=== PATIENT | female | born 1990 | race Caucasian/White ===

== ENCOUNTER 2016-03-25 21:04 | Emergency (ER) | payer OTHER ==
[~2016-03-25] VITALS: Ht 162.6 cm; Wt 43.0 kg
[~2016-03-25 21:04] MED LIST: BUPR8MIS SL; DIPH1TAB PO; NORGTAB50 PO; VNTHFA/IN TOP
[2016-03-25 21:09] VITALS: TEMP 36.6; Ht 162.6 cm; Wt 43.0 kg
[2016-03-25] MEDS ORDERED: SODIUM CHLORIDE 0.9% 500ML 500 ML IV STA (22:31)
[2016-03-25] MEDS ORDERED: RABIES IMMUNE GLOBULIN (HUMAN) 150 INTER.UNIT/ML 2 ML VIAL IM. ONE (22:45)
[2016-03-25] MEDS ORDERED: DIPHTHERIA/TETANUS/PERTUSSIS 0.5 ML SYR/VIAL IM. ONE (22:45)
[2016-03-25 23:01] LABS: HEMATOCRIT 41.6 % (37-47); MEAN CELL VOLUME 93.5 fL (80-100); MEAN CORPUSCULAR HEMOGLOBIN 34.4 pg (25-34); MEAN CORPUSCULAR HGB CONC 36.8 g/dl (32-36); PLATELET COUNT 213 K/uL (130-400); RED BLOOD COUNT 4.45 M/uL (4.2-5.4); WHITE BLOOD COUNT 5.63 K/uL (4.8-10.8)
[2016-03-25 23:18] LABS: ALT/SGPT 21 U/L (12-78); BLOOD UREA NITROGEN 7 mg/dl (7-18); BUN/CREATININE RATIO 9.4 (10-20); CALCIUM 8.9 mg/dl (8.5-10.1); CARBON DIOXIDE 28 mmol/L (21-32); CHLORIDE 105 mmol/L (98-107); CREATININE 0.77 mg/dl (0.60-1.20); GLUCOSE 78 mg/dl (70-99); SODIUM 140 mmol/L (136-145)
[2016-03-25 23:27] LABS: ALKALINE PHOSPHATASE 64 U/L (45-117); AST/SGOT 18 U/L (15-37); THYROID STIMULATING HORMONE 0.736 uIu/ml (0.300-4.500)
[2016-03-25 23:44] LABS: PREG INTERNAL NEGATIVE QC NEG CLEAR BACKGROUND; PREG INTERNAL POSITIVE QC POS CONTROL LINE
[2016-03-26 00:02] LABS: BASO % 0.5 %; BASO ABS # 0.03 K/uL (0-0.2); COMPLETE YES; EOS % 2.8 %; IG% 0.2 %; LYMPH % 50.3 %; LYMPH ABS # 2.83 K/uL (1.2-3.4); MONO % 5.2 %
[2016-03-26] MEDS ORDERED: DOXY100C2 PO (00:05)
[2016-03-26] MEDS ORDERED: METR-162 PO (00:05)
--- NOTE | 2016-03-26 00:34 | EMERGENCY ROOM VISIT NOTE ---
History First contact with patient: 23:55 Chief Complaint: OTHER COMPLAINT Stated Complaint: EXCESSIVE SWEATING,SORE LYMPH NODES,HARD TIME SWAL History of Present Illness The patient is a 25 year old female who presents to the Emergency Room with complaints of sore throat, swollen lymph nodes, fatigue, occasional discolored urine who was bitten yesterday by her ferret who has been around bats. Patient states she's had discoloration to her urine for a month now. She does smoke. Patient denies chest pain, dyspnea, fever, chills, cough, congestion, abdominal pain, vomiting, diarrhea, headache, neck stiffness. Patient states she is concerned she might have rabies. Patient also was to make sure there is nothing wrong with her urine. Review of Systems See HPI for pertinent positives & negatives. A total of 10 systems reviewed and were otherwise negative. Past Medical/Surgical History Medical Problems: (1) Drug Abuse Nec-Unspec (2) Kidney infection (3) Pneumonia (4) (5) Tobacco Use Disorder Family History FHx: cancer FHx: gallbladder disease FHx: heart disease Hypertension Kidney disease Kidney stones Seizures Social History Smoking Status: Current Every Day Smoker Alcohol Use: none Drug Use: none Marital Status: single Housing Status: lives with family Occupation Status: unemployed Current/Historical Medications Scheduled Buprenorphine Hcl-Naloxone Hcl (Suboxone 8-2 Mg), 1 DOSE SL BID Diphenhydramine Hcl (Benadryl Allergy), 25 MG PO PRN UD Doxycycline Hyclate (Vibramycin), 100 MG PO BID Metronidazole (Flagyl), 1 TAB PO TID Allergies Coded Allergies: Amoxicillin (Unverified Allergy, Unknown, UNKNOWN, 03/25/16) Physical Exam Vital Signs Date Time Temp Pulse Resp B/P Pulse Ox O2 Delivery O2 Flow Rate FiO2 03/25/16 21:09 36.6 104 18 121/73 97 Room Air Physical Exam VITALS: Vitals are noted on the nurse's note and reviewed by myself. Vital signs stable. GENERAL: Pleasant anxious-appearing female with tobacco odor, in no acute distress, nondiaphoretic, well-developed well-nourished. SKIN: Small scratch andre to left hands in between the thumb and second finger with no palpable abscess or cellulitis The rest of the skin was without rashes, erythema, edema, or bruising. There is no tenting of the skin. Capillary reflex less than 2 seconds. HEAD: Normocephalic atraumatic. EARS: External auditory canals clear, tympanic membranes pearly jones without erythema or effusion bilaterally. EYES: Pupils equal round and reactive to light and accommodation. Conjunctivae without injection, sclerae without icterus. Extraocular movements intact. NOSE: Patent, turbinates without inflammation or discharge. No sinus tenderness. MOUTH: Mucous membranes moist. Tonsils are not enlarged. Pharynx without erythema or exudate. Uvula midline. Airway patent. Tongue does not deviate. NECK: Supple without nuchal rigidity. No lymphadenopathy. No thyromegaly. Cervical spine is nontender. No JVD. HEART: Regular rate and rhythm without murmurs gallops or rubs. LUNGS: Clear to auscultation bilaterally without wheezes, rales or rhonchi. No dullness to percussion. No retractions or accessory muscle use. ABDOMEN: Positive bowel sounds x 4. Normal tympanic percussion. Soft, nontender, without masses or organomegaly. Lewis sign negative. No guarding or rebound tenderness. MUSCULOSKELETAL: No muscle atrophy, erythema, or edema noted. NEURO: Patient was alert and oriented to person place and time. Normal sensation to light and sharp touch. No focal neurological deficits. Medical Decision & Procedures Laboratory Results 03/25/16 22:51 Red Blood Count 4.45, Mean Corpuscular Volume 93.5, Mean Corpuscular Hemoglobin 34.4, Mean Corpuscular Hemoglobin Concent 36.8, Mean Platelet Volume 9.0, Neutrophils (%) (Auto) 41.0, Lymphocytes (%) (Auto) 50.3, Monocytes (%) (Auto) 5.2, Eosinophils (%) (Auto) 2.8, Basophils (%) (Auto) 0.5, Neutrophils # (Auto) 2.31, Lymphocytes # (Auto) 2.83, Monocytes # (Auto) 0.29, Eosinophils # (Auto) 0.16, Basophils # (Auto) 0.03 03/25/16 22:51 Test 03/25/16 22:51 03/25/16 23:55 White Blood Count 5.63 K/uL (4.8-10.8) Red Blood Count 4.45 M/uL (4.2-5.4) Hemoglobin 15.3 g/dL (12.0-16.0) Hematocrit 41.6 % (37-47) Mean Corpuscular Volume 93.5 fL (80-100) Mean Corpuscular Hemoglobin 34.4 pg (25-34) Mean Corpuscular Hemoglobin Concent 36.8 g/dl (32-36) Platelet Count 213 K/uL (130-400) Mean Platelet Volume 9.0 fL (7.4-10.4) Neutrophils (%) (Auto) 41.0 % Lymphocytes (%) (Auto) 50.3 % Monocytes (%) (Auto) 5.2 % Eosinophils (%) (Auto) 2.8 % Basophils (%) (Auto) 0.5 % Neutrophils # (Auto) 2.31 K/uL (1.4-6.5) Lymphocytes # (Auto) 2.83 K/uL (1.2-3.4) Monocytes # (Auto) 0.29 K/uL (0.11-0.59) Eosinophils # (Auto) 0.16 K/uL (0-0.5) Basophils # (Auto) 0.03 K/uL (0-0.2) RDW Standard Deviation 44.0 fL (36.4-46.3) RDW Coefficient of Variation 12.8 % (11.5-14.5) Immature Granulocyte % (Auto) 0.2 % Immature Granulocyte # (Auto) 0.01 K/uL (0.00-0.02) Anion Gap 7.0 mmol/L (3-11) Est Creatinine Clear Calc Drug Dose 76.5 ml/min Estimated GFR () 125.3 Estimated GFR (Non- 108.1 BUN/Creatinine Ratio 9.4 (10-20) Calcium Level 8.9 mg/dl (8.5-10.1) Total Bilirubin 0.4 mg/dl (0.2-1) Direct Bilirubin < 0.1 mg/dl (0-0.2) Aspartate Amino Transf (AST/SGOT) 18 U/L (15-37) Alanine Aminotransferase (ALT/SGPT) 21 U/L (12-78) Alkaline Phosphatase 64 U/L (45-117) Total Creatine Kinase 72 U/L (26-192) Total Protein 7.5 gm/dl (6.4-8.2) Albumin 4.1 gm/dl (3.4-5.0) Thyroid Stimulating Hormone (TSH) 0.736 uIu/ml (0.300-4.500) Human Chorionic Gonadotropin, Qual NEG (NEG) Monoscreen NEG (NEG) Medications Administered Medications (Trade) Dose Ordered Sig/Audrey Route Start Time Stop Time Status Last Admin Dose Admin Sodium Chloride (Nss 500ml) 500 ml @ 999 mls/hr Q31M STAT IV 03/25/16 22:31 03/25/16 23:01 DC 03/25/16 22:31 999 MLS/HR Diphtheria/ Pertussis/Tetanus Vacc (Adacel Inj) 0.5 ml ONCE ONCE IM. 03/25/16 22:45 03/25/16 22:46 DC 03/25/16 22:45 0.5 ML Rabies Immune Globulin (Imogam Rabies Inj) 860 interunit ONCE ONCE IM. 03/25/16 22:45 03/25/16 22:46 DC 03/25/16 22:45 860 INTERUNIT ED Course Prior records/ancillary studies reviewed and summarized above. Nursing notes reviewed. The patient's history was concerning for animal bite, sore throat and fatigue. Differential diagnosis: Etiologies such as metabolic, rabies, infection, hypo/hyperglycemia, electrolyte abnormalities, cardiac sources, intracerebral event, toxicologic, neurologic, as well as others were entertained. Physical examination: As above. ER treatment provided: IV Lock NSS, rabies prophylaxis On reassessment the patient felt better. Diagnostics interpretation by me: The labs revealed no worrisome leukocytosis or left slight abnormality. Negative strep test sent for culture. Exam and history seem consistent with sore throat most likely viral in etiology with ferret bite to left hand. No obvious signs of infection over the bite area. Patient was started on rabies prophylaxis as her was a possible concern for rabies. She is advised follow-up family medicine in a few days or here in the ER sooner for fevers, spreading infection, headaches, confusion, worsening signs or symptoms or as needed. Patient was neurovascularly and neurologically intact. No other acute findings are noted. She ambulated out of the ER without difficulties. Case reviewed with my attending. By the evaluation outlined above emergent etiologies such as electrolyte abnormalities, cardiac sources, intracerebral event, toxologic, neurologic, abnormalities blood glucose , metabolic, as well as others were deemed relatively unlikely. The pt informed about the findings as listed above. All questions were answered and pleased with the treatment. Return instructions were outlined and the patient was discharged in stable condition. Outpatient prescription management: ben peterson Referral: The patient was referred back to primary care physician for follow-up in 2 to 3 days for a recheck of the current condition. Medical Decision As above Impression Primary Impression: Pharyngitis Additional Impressions: Animal bite of hand Need for prophylactic vaccination against rabies Departure Information Dispostion Home / Self-Care Condition GOOD Prescriptions Metronidazole (FLAGYL) 500 Mg Tab 1 TAB PO TID for 10 Days, #30 TAB Prov: Roselia Brown .SEBLE 03/26/16 Doxycycline Hyclate (VIBRAMYCIN) 100 Mg Cap 100 MG PO BID for 10 Days, #20 CAP Prov: Roselia Brown PA-C 03/26/16 Forms WORK / SCHOOL INSTRUCTIONS, HOME CARE DOCUMENTATION FORM, IMPORTANT VISIT INFORMATION Patient Instructions Sore Throat - [facility], [facility], Rabies Immune Globulin Human Solution for injection Additional Instructions Return on days 3,7 and 14 for your rabies series. Flagyl 500mg: Take one tablet 3 times a day for 10 days. All antibiotics can cause diarrhea. If this occurs and you feel worse or it does not resolve in 1- 2 days follow up with your doctor or return to the Emergency Department as this could be signs of serious underlying problems. Any medication can cause an allergic reaction, stop the pills immediately and return to the ER for rash, hives, breathing difficulties, or swelling. Doxycycline 100mg: Take one pill twice daily for 10 days for your infection. Take with food, but avoid dairy. Avoid prolonged sun exposure since this medication makes you temporarily more susceptible to sunburns. All antibiotics can cause diarrhea. If this occurs and you feel worse or it does not resolve in 1-2 days follow up with your doctor or return to the Emergency Department as this could be signs of serious underlying problems. Any medication can cause an allergic reaction, stop the pills immediately and return to the ER for rash, hives, breathing difficulties, or swelling. Acetaminophen(Tylenol) may be used for fever or pain. Use 500mg every six hours as needed. Avoid using more than 2000mg in a 24 hour period. AND/OR Ibuprofen(Motrin, Advil) may be used for fever or pain. Use 400mg every six hours as needed. Take with food. Avoid using more than 1600mg in a 24 hour period. Do not use 1600mg per day for more than three consecutive days without physician direction. Prolonged inappropriate use can lead to stomach upset or ulcers. Controlling your fever with Tylenol and Ibuprofen as above will make you feel better. Rest and drink plenty of fluids. Avoid strenuous activity until your symptoms resolve and your breathing returns to normal. Continue current medications. Return to the ER for chest pain, difficulty breathing, persistent fevers, vomiting, worsening of your condition, or as needed. Follow-up with family care in 2-3 days. Problem Qualifiers Primary Impression: Pharyngitis Pharyngitis/tonsillitis etiology: unspecified etiology Qualified Codes: J02.9 - Acute pharyngitis, unspecified Additional Impressions: Animal bite of hand Encounter type: initial encounter Laterality: left Qualified Codes: S61.452A - Open bite of left hand, initial encounter
[2016-03-26 00:49] VITALS: BP 116/83; PULSE 96; O2SAT 99
[2016-03-26 00:49] LABS: URINE APPEARANCE CLEAR (CLEAR); URINE BILIRUBIN NEG (NEG); URINE COLOR YELLOW; URINE EPITHELIAL CELL AUTO >30 /lpf (0-5); URINE NITRITE NEG (NEG); URINE PH 5.5 (4.5-7.5); URINE SPECIFIC GRAVITY 1.004 (1.000-1.030); UROBILINOGEN NEG (NEG); ZZUR CULT IF INDIC CLEAN CATCH NO
[2016-03-26 00:55] LABS: MANUAL MICROSCOPIC REQUIRED? NO; REVIEW REQ? NO
== END 2016-03-26 00:49 | disposition home or self-care (01) ==
LOC: C.EDB 21:06 → C.EDC 03-26 00:49
DX: J02.9 Acute pharyngitis, unspecified (principal); S61.452A Open bite of left hand, initial encounter; Z20.3 Contact with and (suspected) exposure to rabies; Z23 Encounter for immunization; R53.83 Other fatigue; R82.90 Unspecified abnormal findings in urine; Z79.899 Other long term (current) drug therapy; Z88.1 Allergy status to other antibiotic agents; F17.200 Nicotine dependence, unspecified, uncomplicated; Z82.0 Family history of epilepsy and other diseases of the nervous system; Z82.49 Family history of ischemic heart disease and other diseases of the circulatory system; Z83.79 Family history of other diseases of the digestive system; Z84.1 Family history of disorders of kidney and ureter; W53.81XA Bitten by other rodent, initial encounter

== ENCOUNTER 2016-03-28 21:36 | Emergency (ER) | payer OTHER ==
[~2016-03-28] VITALS: Ht 162.6 cm; Wt 41.8 kg
[~2016-03-28 21:36] MED LIST changes: +DOXY100C2 PO; +METR-162 PO; -NORGTAB50 PO; -VNTHFA/IN TOP
[2016-03-28 21:39] VITALS: TEMP 36.3; Ht 162.6 cm; Wt 41.8 kg
--- NOTE | 2016-03-28 22:08 | EMERGENCY ROOM VISIT NOTE ---
ED Visit Note First contact with patient: 21:43 I have seen and examined this patient with Calvin Burrows and generally agree with the treatment plan as discussed. Problem List Medical Problems: (1) Kidney infection Status: Chronic (2) Status: Chronic Current/Historical Medications Scheduled Buprenorphine Hcl-Naloxone Hcl (Suboxone 8-2 Mg), 1 DOSE SL BID Diphenhydramine Hcl (Benadryl Allergy), 25 MG PO PRN UD Doxycycline Hyclate (Vibramycin), 100 MG PO BID Metronidazole (Flagyl), 1 TAB PO TID Allergies Coded Allergies: Amoxicillin (Unverified Allergy, Unknown, UNKNOWN, 03/25/16) Vital Signs Date Time Temp Pulse Resp B/P Pulse Ox O2 Delivery O2 Flow Rate FiO2 03/28/16 21:39 36.3 88 16 113/73 99 Room Air Departure Information Referrals No Doctor, Assigned (PCP) Patient Instructions My [facility]
--- NOTE | 2016-03-28 22:26 | EMERGENCY ROOM VISIT NOTE ---
ED Visit Note First contact with patient: 21:43 Chief Complaint: Rabies Return Visit History of Present Illness: This patient is a 25-year-old female who presents to the Emergency Department this evening for their 2nd Rabies Vaccination Injections. The patient reports that they had no reaction to previous injection. Patient denies the development of any fevers, chills, sweats, or URI symptoms. Medications: Unchanged from previous visit. Allergies: Amoxicillin PMH: Unchanged from previous visit. SHx: Patient is a 25-year-old female who lives locally. ROS: All pertinent positive and negative review of systems are appropriately documented in the History of Present Illness. Physical Exam: VITAL SIGNS - Vital signs and Nursing Notes were reviewed. GENERAL -25-year-old female, well-developed, well-nourished, and in no acute distress. SKIN - Without rashes or lesions. CARDIAC - RRR with normal S1 & S2. No murmurs, rubs, or gallops appreciated. RESPIRATORY - Clear to auscultation bilaterally. No wheezes, rales, or rhonchi appreciated. NEURO - Patient is A&Ox3 and communicates appropriately with the provider. ED Course: Previous ED visit note was reviewed by myself prior to patient evaluation. Patient had not received Imovax during her initial vaccination series. She had only received immunoglobulin. I discussed this with the pharmacist. It was felt best that the patient complete the entire course including days 0, 3, 7, and 14. This information was relayed to the patient. Patient reports no reaction to the previous injection(s). Patient received 2.5 international units of Imovax intramuscularly. Patient was observed in the Emergency Department for greater than 20 minutes prior to discharge without signs of reaction. Patient was educated on worrisome symptoms for return visit to the Emergency Department. Patient discharged to home with the intent for follow-up in the Emergency Department as scheduled for the remainder of their injections. Impression: Rabies Prophylaxis Discharge Instructions: You were seen in the Emergency Department today for your Rabies Prophylaxis Injection. You need to return on days 3 (03/31), 7 (04/04), and 14 (04/11) for completion of the rabies prophylaxis series. For pain or fever control, you can use the following [id number] medicines (if >12 yo): - Regular strength (325mg/tab) Tylenol (acetaminophen) 2 tabs every 4-6 hours as needed. Do not exceed 12 tablets in a 24 hour period. Avoid taking more than 4 grams (4000 mg) of Tylenol per day. This includes any other sources of acetaminophen you may take on a regular basis. - Regular strength (200 mg/tab) Advil (ibuprofen) 1-2 tabs every 4-6 hours as needed. Do not exceed a dose of 3200 mg per day. Return to the emergency department if your symptoms worsen despite treatment course outlined above. Problem List Medical Problems: (1) Kidney infection Status: Chronic (2) Status: Chronic Current/Historical Medications Scheduled Buprenorphine Hcl-Naloxone Hcl (Suboxone 8-2 Mg), 1 DOSE SL BID Diphenhydramine Hcl (Benadryl Allergy), 25 MG PO PRN UD Doxycycline Hyclate (Vibramycin), 100 MG PO BID Metronidazole (Flagyl), 1 TAB PO TID Allergies Coded Allergies: Amoxicillin (Unverified Allergy, Unknown, UNKNOWN, 03/28/16) Vital Signs Date Time Temp Pulse Resp B/P Pulse Ox O2 Delivery O2 Flow Rate FiO2 03/28/16 22:35 94 20 100/78 95 03/28/16 21:39 36.3 88 16 113/73 99 Room Air Laboratory Results Test 03/28/16 22:12 Urine Test NEG (NEG) Medications Administered Medications (Trade) Dose Ordered Sig/Audrey Route Start Time Stop Time Status Last Admin Dose Admin Rabies Vaccine Human Diploid Cell (Imovax Rabies) 2.5 interunit ONCE ONCE IM. 03/28/16 22:30 03/28/16 22:31 DC 03/28/16 22:30 2.5 INTERUNIT Departure Information Impression Primary Impression: Rabies, need for prophylactic vaccination against Dispostion Home / Self-Care Condition GOOD Referrals No Doctor, Assigned (PCP) Patient Instructions My [facility], Rabies Immune Globulin Human Solution for injection Additional Instructions You were seen in the Emergency Department today for your Rabies Prophylaxis Injection. You need to return on days 3 (03/31), 7 (04/04), and 14 (04/11) for completion of the rabies prophylaxis series. For pain or fever control, you can use the following [id number] medicines (if >12 yo): - Regular strength (325mg/tab) Tylenol (acetaminophen) 2 tabs every 4-6 hours as needed. Do not exceed 12 tablets in a 24 hour period. Avoid taking more than 4 grams (4000 mg) of Tylenol per day. This includes any other sources of acetaminophen you may take on a regular basis. - Regular strength (200 mg/tab) Advil (ibuprofen) 1-2 tabs every 4-6 hours as needed. Do not exceed a dose of 3200 mg per day. Return to the emergency department if your symptoms worsen despite treatment course outlined above.
[2016-03-28] MEDS ORDERED: RABIES VACCINE (IMOVAX) HUMAN DIPL CELL 2.5 INTER.UNIT/ML SYR IM. ONE (22:30)
[2016-03-28 22:35] VITALS: BP 100/78; PULSE 94; O2SAT 95
== END 2016-03-28 22:37 | disposition home or self-care (01) ==
LOC: C.EDB 21:37 → C.EDD 22:37
DX: Z23 Encounter for immunization (principal); Z87.442 Personal history of urinary calculi; Z88.1 Allergy status to other antibiotic agents

== ENCOUNTER 2016-04-03 17:35 | Emergency (ER) | payer OTHER ==
[~2016-04-03] VITALS: Ht 162.6 cm; Wt 43.2 kg
[2016-04-03 17:39] VITALS: TEMP 36.8; Ht 162.6 cm; Wt 43.2 kg
[2016-04-03] MEDS ORDERED: FEXO1TAB49 PO (20:07)
[2016-04-03] MEDS ORDERED: RABIES VACCINE (IMOVAX) HUMAN DIPL CELL 2.5 INTER.UNIT/ML SYR IM. ONE (20:30)
--- NOTE | 2016-04-03 20:37 | EMERGENCY ROOM VISIT NOTE ---
History Report prepared by Jamar: Amy Colunga Under the Supervision of: Dr. Cari Jean M.D. First contact with patient: 20:03 Chief Complaint: NAUSEA Stated Complaint: FEELING SICK, NAUSEA, PAIN IN RT RIB, HEADACHE Nursing Triage Summary: Pt reports nausea, headache, green discharge from anus sx started 2 weeks ago Pt is also supposed to get her third rabies vaccine today History of Present Illness The patient is a 25 year old female who presents to the Emergency Room with complaints of constant illness symptoms for the past few weeks. The patient notes that she has been experiencing nausea and a headache. She also for the past several months experiencing green discharge from her anus. She is unsure if it could be and STD, however she has only been sexually active with the same partner for over two years now. Patient also states a possibility that she could be . The patient is due for her 3rd rabies vaccine. Her LNMP was March 19. She does not she has an ovarian cyst. 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 Review of Systems See HPI for pertinent positives & negatives. A total of 10 systems reviewed and were otherwise negative. Past Medical & Surgical Medical Problems: (1) Drug Abuse Nec-Unspec (2) Kidney infection (3) Pneumonia (4) (5) Tobacco Use Disorder Family History FHx: cancer FHx: gallbladder disease FHx: heart disease Hypertension Kidney disease Kidney stones Seizures Social History Smoking Status: Never Smoker Alcohol Use: none Drug Use: none Marital Status: in relationship Housing Status: lives with family Occupation Status: unemployed Current/Historical Medications Scheduled Buprenorphine Hcl-Naloxone Hcl (Suboxone 8-2 Mg), 1 DOSE SL BID Doxycycline Hyclate (Vibramycin), 100 MG PO BID Fexofenadine Hcl ([place] Allergy), 1 TAB PO DAILY Metronidazole (Flagyl), 1 TAB PO TID Allergies Coded Allergies: Amoxicillin (Unverified Allergy, Unknown, UNKNOWN, 04/03/16) Physical Exam Vital Signs Date Time Temp Pulse Resp B/P Pulse Ox O2 Delivery O2 Flow Rate FiO2 04/03/16 21:46 107 18 117/86 99 04/03/16 20:41 93 18 118/87 94 Room Air 04/03/16 17:39 36.8 121 16 108/73 97 Room Air Physical Exam Vital signs reviewed. General: Well-appearing female, thin and somewhat disheveled, in no significant distress. HEENT: No scleral icterus, PERRLA, neck supple. Atraumatic. Cardiovascular: Regular rate and rhythm, no extra sounds. Pulmonary: Clear to auscultation bilaterally, normal work of breathing. Abdomen: Soft, nontender, nondistended, positive bowel sounds. Pelvic: Normal external female genitals. No lesion or discharge. No rectal discharge or rectal lesions. Musculoskeletal: Atraumatic, no peripheral edema. Neurologic: Patient awake alert and oriented x 3 Skin: Warm, dry, no rash Medical Decision & Procedures Laboratory Results Test 04/03/16 20:57 04/03/16 21:30 Urine Test NEG (NEG) Laboratory results per my review. Medications Administered Medications (Trade) Dose Ordered Sig/Audrey Route Start Time Stop Time Status Last Admin Dose Admin Rabies Vaccine Human Diploid Cell (Imovax Rabies) 2.5 interunit ONCE ONCE IM. 04/03/16 20:30 04/03/16 20:32 DC 04/03/16 20:47 2.5 INTERUNIT ED Course 2024: Past medical records reviewed. The patient was evaluated in room C2. A complete history and physical examination was performed. 2030: Imovax rabies 2.5 interunit IM. 2144: Upon reevaluation, the patient appeared to have improvement of her symptoms. I discussed findings with her. She verbalized agreement of the treatment plan. She was discharged home. Medical Decision The patient is a 25 year old female who presents to the ED with complaints of illness. Differentials include STD, perirectal abscess, colitis, , viral illness, gastritis. This patient was evaluated and appeared to be in no significant distress. A pelvic exam was performed and reveals no significant discharge or lesions. Rectal examination reveals no significant discharge or lesion. Swabs were obtained and sent for STD testing. Patient was given her rabies immunization. Patient will follow-up with her primary care physician for reevaluation and return to the ER for worsening of symptoms or any medical concerns. Impression Primary Impression: Rabies, need for prophylactic vaccination against Additional Impression: Rectal discharge Scribe Attestation The scribe's documentation has been prepared under my direction and personally reviewed by me in its entirety. I confirm that the note above accurately reflects all work, treatment, procedures, and medical decision making performed by me. Departure Information Dispostion Home / Self-Care Referrals No Doctor, Assigned (PCP) Forms HOME CARE DOCUMENTATION FORM, IMPORTANT VISIT INFORMATION Patient Instructions My [facility] Additional Instructions Diagnosis: Rectal discharge, need for rabies immunization. Please follow-up with your RESIDENT ENGINEER for reevaluation. The cultures are pending and you will be contacted if there is a need for antibiotics. Return for your last rabies immunization on 04/11/16 as previously directed. Return to the ER for worsening of symptoms or any medical concerns. Problem Qualifiers
[2016-04-03 21:46] VITALS: BP 117/86; PULSE 107; O2SAT 99
[2016-04-08 00:15] LABS: CHLAMYDIA TRACH RNA*** NOT DETECTED (NOT DETECTED); GC (NEIS GONORRHOEAE)RNA** NOT DETECTED (NOT DETECTED)
== END 2016-04-03 21:46 | disposition home or self-care (01) ==
LOC: C.EDB 17:37 → C.EDC 21:46
DX: Z29.14 Encounter for prophylactic rabies immune globulin (principal); Z20.3 Contact with and (suspected) exposure to rabies; R19.8 Other specified symptoms and signs involving the digestive system and abdomen; R51 Headache; R11.0 Nausea; Z79.899 Other long term (current) drug therapy; Z82.49 Family history of ischemic heart disease and other diseases of the circulatory system; Z84.1 Family history of disorders of kidney and ureter

== ENCOUNTER 2016-09-23 18:18 | Emergency (ER) | payer OTHER ==
[~2016-09-23] VITALS: Ht 162.6 cm; Wt 41.5 kg
[~2016-09-23 18:18] MED LIST changes: -DIPH1TAB PO; +FEXO1TAB49 PO; -METR-162 PO
[2016-09-23 18:33] VITALS: TEMP 36.7; Ht 162.6 cm; Wt 41.5 kg
[2016-09-23] MEDS ORDERED: SODIUM CHLORIDE 0.9% 1000ML 1,000 ML IV STA (19:00)
[2016-09-23 19:28] LABS: BASO % 0.7 %; BASO ABS # 0.05 K/uL (0-0.2); COMPLETE YES; EOS % 5.1 %; HEMATOCRIT 45.1 % (37-47); IG% 0.3 %; LYMPH % 48.5 %; MEAN CELL VOLUME 94.7 fL (80-100); MEAN CORPUSCULAR HGB CONC 34.8 g/dl (32-36); MEAN PLATELET VOLUME 9.4 fL (7.4-10.4); MONO % 7.1 %; NEUT % 38.3 %; PLATELET COUNT 265 K/uL (130-400); RED BLOOD COUNT 4.76 M/uL (4.2-5.4); WHITE BLOOD COUNT 7.22 K/uL (4.8-10.8)
[2016-09-23] MEDS ORDERED: BUPR100T8 PO (19:36)
[2016-09-23 19:42] LABS: URINE APPEARANCE CLEAR (CLEAR); URINE BILIRUBIN NEG (NEG); URINE COLOR YELLOW; URINE NITRITE NEG (NEG); URINE SPECIFIC GRAVITY 1.007 (1.000-1.030); UROBILINOGEN NEG (NEG)
[2016-09-23 19:47] LABS: MANUAL MICROSCOPIC REQUIRED? NO; REVIEW REQ? NO
[2016-09-23 19:54] LABS: ALT/SGPT 16 U/L (12-78); BLOOD UREA NITROGEN 7 mg/dl (7-18); BUN/CREATININE RATIO 9.7 (10-20); CALCIUM 8.9 mg/dl (8.5-10.1); CARBON DIOXIDE 27 mmol/L (21-32); CHLORIDE 105 mmol/L (98-107); CREATININE 0.69 mg/dl (0.60-1.20); GLUCOSE 71 mg/dl (70-99); POTASSIUM 3.7 mmol/L (3.5-5.1); SODIUM 138 mmol/L (136-145)
[2016-09-23 20:04] LABS: ALKALINE PHOSPHATASE 65 U/L (45-117); AST/SGOT 13 U/L (15-37)
[2016-09-23 20:28] LABS: LYME DISEASE AB IGG NEG (NEG); LYME DISEASE AB IGM NEG (NEG)
[2016-09-23 21:03] VITALS: BP 118/68; PULSE 89; O2SAT 99
--- NOTE | 2016-09-24 00:31 | EMERGENCY ROOM VISIT NOTE ---
History Report prepared by Jamar: Hank Watson Under the Supervision of: Dr. Zuhair Ortiz M.D. First contact with patient: 18:48 Chief Complaint: HEADACHE Stated Complaint: JOINT MUSCLE PAIN, HEADACHE History of Present Illness The patient is a 25 year old female who presents to the Emergency Room with complaints of a worsening headache that began a couple of months ago. She rates her pain a 6/10 in severity. Over the past couple of days, she states that her symptoms have worsened and that she feels "off." Over the past two years, she has also had neck pain, body aches, and joint pain. She states her shoulders her fingers and her knees are hurting her. She denies any swelling or redness. Currently, the patient is mildly nauseated, congested due to allergies, and states that her ears feel full. She denies any fever, vomiting, chills or rash. She does not currently have a PCP. She states that she has been experiencing symptoms since she birthed her first child on Feb 09, 2014 and is taking anxiety medications for it. She states she gets her anxiety meds from Dr. Lucia at the urgent care center. She notes that she had a tick bite in April 2016, but was not treated. Source of History: patient Onset: a couple of months ago Position: head Symptom Intensity: 6/10 Quality: ache Timing: worsening Associated Symptoms: + neck pain, + nausea, No fevers, No vomiting, No rash Note: She is having joint pain and body aches. Review of Systems See HPI for pertinent positives & negatives. A total of 10 systems reviewed and were otherwise negative. Past Medical & Surgical Medical Problems: (1) Drug Abuse Nec-Unspec (2) Kidney infection (3) Pneumonia (4) (5) Tobacco Use Disorder Family History FHx: cancer FHx: gallbladder disease FHx: heart disease Hypertension Kidney disease Kidney stones Seizures Social History Smoking Status: Current Every Day Smoker Alcohol Use: none Drug Use: none Marital Status: in relationship Housing Status: lives with family Occupation Status: unemployed Current/Historical Medications Scheduled Buprenorphine Hcl-Naloxone Hcl (Suboxone 8-2 Mg), 1 DOSE SL BID Bupropion (Wellbutrin Sr), 100 MG PO BID Allergies Coded Allergies: Amoxicillin (Unverified Allergy, Unknown, UNKNOWN, 04/03/16) Uncoded Allergies: TOMATOES (Allergy, Mild, HIVES, 09/23/16) Physical Exam Vital Signs Date Time Temp Pulse Resp B/P (MAP) Pulse Ox O2 Delivery O2 Flow Rate FiO2 09/23/16 21:03 89 20 118/68 99 09/23/16 20:33 89 20 118/68 99 Room Air 09/23/16 18:33 36.7 90 16 126/74 95 Room Air Physical Exam Constitutional: Vital signs reviewed. Eyes: Pupils are equal round reactive to light. Conjunctiva are noninjected. ENT: Pharynx is clear without erythema or exudate. Mucous membranes are moist. Neck supple without meningeal signs. Respiratory: Clear to auscultation bilaterally. Breath sounds are equal bilaterally. Cardiovascular: Regular rate and rhythm. No rubs or gallops. GI: Soft, nondistended and nontender. Bowel sounds are present. Musculoskeletal: No peripheral edema. No CVA tenderness. No joint swelling. Integumentary: No cyanosis. Neurological: The patient is awake and alert. Cranial nerves II-XII are intact. Motor is 5 out of 5 all extremities. Sensation is intact to light touch all extremities. Normal speech. Negative Kernig and Brudzinski's signs. Psychiatric: Slightly anxious appearing. Medical Decision & Procedures Laboratory Results 09/23/16 19:10 Red Blood Count 4.76, Mean Corpuscular Volume 94.7, Mean Corpuscular Hemoglobin 33.0, Mean Corpuscular Hemoglobin Concent 34.8, Mean Platelet Volume 9.4, Neutrophils (%) (Auto) 38.3, Lymphocytes (%) (Auto) 48.5, Monocytes (%) (Auto) 7.1, Eosinophils (%) (Auto) 5.1, Basophils (%) (Auto) 0.7, Neutrophils # (Auto) 2.77, Lymphocytes # (Auto) 3.50, Monocytes # (Auto) 0.51, Eosinophils # (Auto) 0.37, Basophils # (Auto) 0.05 09/23/16 19:10 Test 09/23/16 19:10 White Blood Count 7.22 K/uL (4.8-10.8) Red Blood Count 4.76 M/uL (4.2-5.4) Hemoglobin 15.7 g/dL (12.0-16.0) Hematocrit 45.1 % (37-47) Mean Corpuscular Volume 94.7 fL (80-100) Mean Corpuscular Hemoglobin 33.0 pg (25-34) Mean Corpuscular Hemoglobin Concent 34.8 g/dl (32-36) Platelet Count 265 K/uL (130-400) Mean Platelet Volume 9.4 fL (7.4-10.4) Neutrophils (%) (Auto) 38.3 % Lymphocytes (%) (Auto) 48.5 % Monocytes (%) (Auto) 7.1 % Eosinophils (%) (Auto) 5.1 % Basophils (%) (Auto) 0.7 % Neutrophils # (Auto) 2.77 K/uL (1.4-6.5) Lymphocytes # (Auto) 3.50 K/uL (1.2-3.4) Monocytes # (Auto) 0.51 K/uL (0.11-0.59) Eosinophils # (Auto) 0.37 K/uL (0-0.5) Basophils # (Auto) 0.05 K/uL (0-0.2) RDW Standard Deviation 44.8 fL (36.4-46.3) RDW Coefficient of Variation 12.9 % (11.5-14.5) Immature Granulocyte % (Auto) 0.3 % Immature Granulocyte # (Auto) 0.02 K/uL (0.00-0.02) Urine Color YELLOW Urine Appearance CLEAR (CLEAR) Urine pH 8.0 (4.5-7.5) Urine Specific Foster 1.007 (1.000-1.030) Urine Protein NEG (NEG) Urine Glucose (UA) NEG (NEG) Urine Ketones NEG (NEG) Urine Occult Blood NEG (NEG) Urine Nitrite NEG (NEG) Urine Bilirubin NEG (NEG) Urine Urobilinogen NEG (NEG) Urine Leukocyte Esterase NEG (NEG) Urine Test NEG (NEG) Anion Gap 6.0 mmol/L (3-11) Est Creatinine Clear Calc Drug Dose 82.4 ml/min Estimated GFR () 141.2 Estimated GFR (Non- 121.8 BUN/Creatinine Ratio 9.7 (10-20) Calcium Level 8.9 mg/dl (8.5-10.1) Total Bilirubin 0.3 mg/dl (0.2-1) Direct Bilirubin < 0.1 mg/dl (0-0.2) Aspartate Amino Transf (AST/SGOT) 13 U/L (15-37) Alanine Aminotransferase (ALT/SGPT) 16 U/L (12-78) Alkaline Phosphatase 65 U/L (45-117) Total Protein 7.5 gm/dl (6.4-8.2) Albumin 4.0 gm/dl (3.4-5.0) Thyroid Stimulating Hormone (TSH) 1.320 uIu/ml (0.300-4.500) Free Thyroxine 1.17 ng/dl (0.80-1.60) Lyme Disease IgG Antibody NEG (NEG) Lyme Disease IgM Antibody NEG (NEG) Laboratory results as reviewed by me. Medications Administered Medications (Trade) Dose Ordered Sig/Audrey Route Start Time Stop Time Status Last Admin Dose Admin Sodium Chloride 1,000 ml @ 999 mls/hr Q1H1M STAT IV 09/23/16 19:00 09/23/16 20:00 DC 09/23/16 19:10 999 MLS/HR ED Course 1848: The patient was evaluated in room C3. A complete history and physical exam was performed. 1899: Ordered Sodium Chloride 1000 ml @ 999 mls/hr IV 2051: The patient is now requesting a CT of her head because of her headaches. I discussed the risks of radiation exposure with her, and she still wants it. 2100: Patient decided that she does not want the CT scan. She is going to talk to her doctor next week about further imaging of her head. 2112: Upon reevaluation, the patient appeared to have improvement of her symptoms. I discussed tonight's findings with her. She verbalized agreement of the treatment plan. She was discharged home. Medical Decision This is a 25-year-old female who presents with headache, joint pain, body aches and neck pain. Differential diagnosis includes rheumatoid arthritis, fibromyalgia, Lyme disease, migraine headache. I did perform a limited focused review of portions of the patient's old chart on the electronic medical record. The patient was here in March of this year for headache, nausea, rib pain, and anal discharge. She was evaluated and discharged to follow up with her PCP. I did evaluate the patient as noted above. The patient is presenting with several complaints including headache, diffuse body pain and joint pain. She also has neck pain but has no meningeal signs or fever. She states she has had neck pain for over a year. Her headache has been going on for several months and her body and joint pain has been over a year as well. IV access was established. I did treat the patient with normal saline IV. I did order and personally review the patient's urinalysis as described above. I did order and review the patient's blood work as noted in the electronic medical record. Her blood work is unremarkable. Lyme testing is negative. I did discuss the test results with the patient. She does have an appointment to see a new doctor next week. She did initially request to have a CT of her head because of her headaches. I did discuss risks of CT scanning with her and she wanted to proceed with the CAT scan but after I ordered that she decided to wait to talk to her doctor next week and decide upon imaging at that time. I did feel this was reasonable and so the patient was discharged. Medication Reconcilliation Current Medication List: was personally reviewed by me Blood Pressure Screening Patient's blood pressure: Normal blood pressure Blood pressure disposition: Did not require urgent referral Impression Primary Impression: Headache Additional Impressions: Arthralgia Myalgia Scribe Attestation The scribe's documentation has been prepared under my direct and personally reviewed by me in its entirety. I confirm that the note above accurately reflects all work, treatment, procedures, and medical decision making performed by me. Departure Information Dispostion Home / Self-Care Referrals No Doctor, Assigned (PCP) Forms HOME CARE DOCUMENTATION FORM, IMPORTANT VISIT INFORMATION Patient Instructions ED Joint Pain, Headache Pain, My [facility] Additional Instructions You have been examined and treated today on an emergency basis only. This is not a substitute for, or an effort to provide, complete comprehensive medical care. It is impossible to recognize and treat all injuries or illnesses in a single emergency department visit. It is therefore important that you follow up closely with your physician next week per your appointment. Return for worsening symptoms or if you develop fever, vomiting, rash, joint swelling or redness, or any other concerning symptoms. Problem Qualifiers Primary Impression: Headache Headache type: unspecified Headache chronicity pattern: chronic headache Intractability: not intractable Qualified Codes: R51 - Headache Additional Impressions: Arthralgia Joint pain location: unspecified Qualified Codes: M25.50 - Pain in unspecified joint
== END 2016-09-23 21:09 | disposition home or self-care (01) ==
LOC: C.EDB 18:19 → C.EDC 21:09
DX: R51 Headache (principal); M25.50 Pain in unspecified joint; M79.1 Myalgia; F17.200 Nicotine dependence, unspecified, uncomplicated; Z87.01 Personal history of pneumonia (recurrent); Z82.49 Family history of ischemic heart disease and other diseases of the circulatory system; Z84.1 Family history of disorders of kidney and ureter; Z82.0 Family history of epilepsy and other diseases of the nervous system

== ENCOUNTER 2016-12-04 16:11 | Inpatient (IN) | payer OTHER ==
[~2016-12-04] VITALS: Ht 160 cm; Wt 40.2 kg
[~2016-12-04 16:11] MED LIST changes: +BUPR100T8 PO; -DOXY100C2 PO; -FEXO1TAB49 PO
[2016-12-04] MEDS ORDERED: DIPH-437 PO (16:44)
[2016-12-04 16:52] LABS: URINE APPEARANCE CLEAR (CLEAR); URINE BILIRUBIN NEG (NEG); URINE COLOR YELLOW; URINE NITRITE NEG (NEG); URINE PH 6.5 (4.5-7.5); URINE SPECIFIC GRAVITY 1.011 (1.000-1.030); UROBILINOGEN NEG (NEG)
[2016-12-04 16:53] LABS: MANUAL MICROSCOPIC REQUIRED? NO; REVIEW REQ? NO
[2016-12-04 17:37] LABS: BASO % 0.5 %; BASO ABS # 0.03 K/uL (0-0.2); COMPLETE YES; EOS % 1.2 %; HEMATOCRIT 42.9 % (37-47); IG% 0.2 %; LYMPH % 39.5 %; LYMPH ABS # 2.62 K/uL (1.2-3.4); MEAN CELL VOLUME 93.7 fL (80-100); MEAN CORPUSCULAR HEMOGLOBIN 34.9 pg (25-34); MEAN CORPUSCULAR HGB CONC 37.3 g/dl (32-36); MEAN PLATELET VOLUME 9.4 fL (7.4-10.4); MONO % 4.8 %; NEUT % 53.8 %; PLATELET COUNT 264 K/uL (130-400); RED BLOOD COUNT 4.58 M/uL (4.2-5.4); WHITE BLOOD COUNT 6.63 K/uL (4.8-10.8)
[2016-12-04] MEDS ORDERED: NICOTINE 14 MG/24 HR TDSY ONE (17:59)
[2016-12-04] MEDS ORDERED: NICOTINE POLACRILEX 2 MG GUM MT PRN (18:00)
[2016-12-04 18:21] LABS: ALT/SGPT 13 U/L (12-78); BLOOD UREA NITROGEN 5 mg/dl (7-18); BUN/CREATININE RATIO 7.8 (10-20); CALCIUM 8.8 mg/dl (8.5-10.1); CARBON DIOXIDE 29 mmol/L (21-32); CHLORIDE 104 mmol/L (98-107); CREATININE 0.64 mg/dl (0.60-1.20); GLUCOSE 101 mg/dl (70-99); POTASSIUM 2.8 mmol/L (3.5-5.1); SODIUM 140 mmol/L (136-145)
[2016-12-04 18:29] LABS: ACETAMINOPHEN < 2 ug/ml (10-30)
[2016-12-04 18:32] LABS: ALKALINE PHOSPHATASE 65 U/L (45-117); AST/SGOT 12 U/L (15-37); THYROID STIMULATING HORMONE 0.322 uIu/ml (0.300-4.500)
[2016-12-04] MEDS ORDERED: POTASSIUM CHLORIDE 10 MEQ TABCR PO STA ×2 (18:34→20:28)
[2016-12-04 19:37] LABS: BENZODIAZEPINE, URINE NEG (NEG); COCAINE,URINE NEG (NEG); PHENCYCLIDINE, URINE NEG (NEG)
[2016-12-04] MEDS ORDERED: ALUMINUM/MAGNESIUM SUSP 30 ML UDC PO PRN (21:00)
[2016-12-04] MEDS ORDERED: BISMUTH SUBSALICYLATE PER ML OMNICELL CHARGE PO PRN (21:00)
[2016-12-04] MEDS ORDERED: hydrOXYzine HCL 25 MG TAB PO PRN (21:00)
[2016-12-04] MEDS ORDERED: SODIUM CHLORIDE 0.65% NA SOLN 45 ML (OCEAN) PRN (21:00)
[2016-12-04 21:22] VITALS: O2SAT 98
--- NOTE | 2016-12-04 21:48 | EMERGENCY ROOM VISIT NOTE ---
History Report prepared by Jamar: Anastasiya Pittman Under the Supervision of: Twin SofiaO. First contact with patient: 16:25 Chief Complaint: MENTAL HEALTH EVALUATION Stated Complaint: MENTAL HEALTH EVAL History of Present Illness The patient is a 25 year old female who presents to the Emergency Room for a mental health evaluation. The patient took extra Tylenol PM last night with the intent to end her life. She states that she took 4 pills. She is unsure how many mg they were. She estimates that she took them around 10pm. The patient denies using any other drugs last night or today. She denies any alcohol use. Boyfriend states that they spoke with [facility] in the field and were advised to come to the ED for further evaluation. The patient has tried to kill herself multiple times in the past by overdosing. She admits to self-harm and cutting her arms. She has been inpatient at [facility] in the past. The patient has had lower abdominal pain and nausea for the past two weeks. She denies any other physical complaints. Pt denies headache, change in vision, fevers, chest pain, shortness of breath, vomiting, diarrhea, pain with urination, and melena. Her LNMP was a couple of days ago. Source of History: patient, spouse/significant other Onset: CONTRACT ADMINISTRATOR Position: other (mental health) Quality: other (overdose) Timing: other (episode) Associated Symptoms: + nausea, + abdominal pain, No fevers, No headache, No chest pain, No SOB, No vomiting, No melena, No diarrhea, No urinary symptoms Review of Systems See HPI for pertinent positives & negatives. A total of 10 systems reviewed and were otherwise negative. Past Medical & Surgical Medical Problems: (1) Drug Abuse Nec-Unspec (2) Kidney infection (3) Pneumonia (4) (5) Tobacco Use Disorder Family History FHx: cancer FHx: gallbladder disease FHx: heart disease Hypertension Kidney disease Kidney stones Seizures Social History Smoking Status: Current Every Day Smoker Alcohol Use: none Drug Use: none Marital Status: in relationship Housing Status: lives with family Occupation Status: unemployed Current/Historical Medications Scheduled Buprenorphine Hcl-Naloxone Hcl (Suboxone 8-2 Mg), 1 DOSE SL BID Scheduled PRN Acetaminophen/Diphenhydramine (Tylenol Pm), 1 TAB PO HS PRN for Sleep Allergies Coded Allergies: Amoxicillin (Unverified Allergy, Unknown, UNKNOWN, 12/04/16) Uncoded Allergies: TOMATOES (Allergy, Mild, HIVES, 09/23/16) Physical Exam Vital Signs Date Time Temp Pulse Resp B/P (MAP) Pulse Ox O2 Delivery O2 Flow Rate FiO2 12/04/16 18:05 72 18 126/83 99 Room Air 12/04/16 16:14 37.1 117 16 122/85 93 Room Air Physical Exam GENERAL: Sitting up in bed, alert, cachetic, malnourished, no distress, non- toxic EYE EXAM: normal conjunctiva. OROPHARYNX: no exudate, no erythema, lips, buccal mucosa, and tongue normal and mucous membranes are moist NECK: supple, no nuchal rigidity, no adenopathy, non-tender LUNGS: Clear to auscultation. Normal chest wall mechanics HEART: no murmurs, S1 normal and S2 normal ABDOMEN: abdomen soft, non-tender, normo-active bowel sounds, no masses, no rebound or guarding. BACK: Back is symmetrical on inspection and there is no deformity, no midline tenderness, no CVA tenderness. SKIN: no rashes and no bruising UPPER EXTREMITIES: upper extremities are grossly normal. 2nd and 3rd digits bilaterally with yellowish hue on distal digit. LOWER EXTREMITIES: No pitting edema. NEURO EXAM: Normal sensorium, cranial nerves II-XII grossly intact, normal speech, no gross weakness of arms, no gross weakness of legs. PSYCH: Admits to suicide attempt and Tylenol overdose. Medical Decision & Procedures Laboratory Results 12/04/16 17:25 Red Blood Count 4.58, Mean Corpuscular Volume 93.7, Mean Corpuscular Hemoglobin 34.9, Mean Corpuscular Hemoglobin Concent 37.3, Mean Platelet Volume 9.4, Neutrophils (%) (Auto) 53.8, Lymphocytes (%) (Auto) 39.5, Monocytes (%) (Auto) 4.8, Eosinophils (%) (Auto) 1.2, Basophils (%) (Auto) 0.5, Neutrophils # (Auto) 3.57, Lymphocytes # (Auto) 2.62, Monocytes # (Auto) 0.32, Eosinophils # (Auto) 0.08, Basophils # (Auto) 0.03 12/04/16 17:25 Test 12/04/16 16:20 12/04/16 17:25 12/04/16 17:26 Urine Color YELLOW Urine Appearance CLEAR (CLEAR) Urine pH 6.5 (4.5-7.5) Urine Specific Homer 1.011 (1.000-1.030) Urine Protein NEG (NEG) Urine Glucose (UA) NEG (NEG) Urine Ketones NEG (NEG) Urine Occult Blood NEG (NEG) Urine Nitrite NEG (NEG) Urine Bilirubin NEG (NEG) Urine Urobilinogen NEG (NEG) Urine Leukocyte Esterase NEG (NEG) Urine Test NEG (NEG) Urine Opiates Screen NEG (NEG) Urine Methadone, Qualitative NEG (NEG) Urine Barbiturates NEG (NEG) Urine Phencyclidine (PCP) Level NEG (NEG) Ur Amphetamine/Methamphetamine NEG (NEG) MDMA (Ecstasy) Screen NEG (NEG) Urine Benzodiazepines Screen NEG (NEG) Urine Cocaine Metabolite NEG (NEG) Urine Marijuana (THC) NEG (NEG) White Blood Count 6.63 K/uL (4.8-10.8) Red Blood Count 4.58 M/uL (4.2-5.4) Hemoglobin 16.0 g/dL (12.0-16.0) Hematocrit 42.9 % (37-47) Mean Corpuscular Volume 93.7 fL (80-100) Mean Corpuscular Hemoglobin 34.9 pg (25-34) Mean Corpuscular Hemoglobin Concent 37.3 g/dl (32-36) Platelet Count 264 K/uL (130-400) Mean Platelet Volume 9.4 fL (7.4-10.4) Neutrophils (%) (Auto) 53.8 % Lymphocytes (%) (Auto) 39.5 % Monocytes (%) (Auto) 4.8 % Eosinophils (%) (Auto) 1.2 % Basophils (%) (Auto) 0.5 % Neutrophils # (Auto) 3.57 K/uL (1.4-6.5) Lymphocytes # (Auto) 2.62 K/uL (1.2-3.4) Monocytes # (Auto) 0.32 K/uL (0.11-0.59) Eosinophils # (Auto) 0.08 K/uL (0-0.5) Basophils # (Auto) 0.03 K/uL (0-0.2) RDW Standard Deviation 42.7 fL (36.4-46.3) RDW Coefficient of Variation 12.5 % (11.5-14.5) Immature Granulocyte % (Auto) 0.2 % Immature Granulocyte # (Auto) 0.01 K/uL (0.00-0.02) Anion Gap 7.0 mmol/L (3-11) Est Creatinine Clear Calc Drug Dose 84.7 ml/min Estimated GFR () 144.8 Estimated GFR (Non- 124.9 BUN/Creatinine Ratio 7.8 (10-20) Bedside Glucose 111 mg/dl (70-90) Calcium Level 8.8 mg/dl (8.5-10.1) Total Bilirubin 0.3 mg/dl (0.2-1) Direct Bilirubin < 0.1 mg/dl (0-0.2) Aspartate Amino Transf (AST/SGOT) 12 U/L (15-37) Alanine Aminotransferase (ALT/SGPT) 13 U/L (12-78) Alkaline Phosphatase 65 U/L (45-117) Total Protein 7.5 gm/dl (6.4-8.2) Albumin 4.1 gm/dl (3.4-5.0) Thyroid Stimulating Hormone (TSH) 0.322 uIu/ml (0.300-4.500) Salicylates Level 5.8 mg/dl (2.8-20) Acetaminophen Level < 2 ug/ml (10-30) Ethyl Alcohol mg/dL < 3.0 mg/dl (0-3) Laboratory results per my review. Medications Administered Medications (Trade) Dose Ordered Sig/Audrey Route Start Time Stop Time Status Last Admin Dose Admin Nicotine Polacrilex (Nicorette 2MG Gum) 1 piece PRN PRN MN 12/04/16 18:00 12/04/16 21:56 DC 12/04/16 18:02 1 PIECE Nicotine (Nicoderm Cq 14MG Patch) 1 patch STK-MED ONCE .ROUTE 12/04/16 17:59 12/04/16 18:00 DC 12/04/16 18:01 1 PATCH Potassium Chloride (Klor-Con M10) 40 meq NOW STAT PO 12/04/16 18:34 12/04/16 18:35 DC 12/04/16 18:51 40 MEQ Potassium Chloride (Klor-Con M10) 40 meq NOW STAT PO 12/04/16 20:28 12/04/16 20:29 DC 12/04/16 20:28 40 MEQ ED Course ED COURSE: Vital signs were reviewed and showed tachycardic. The patients medical record was reviewed The above diagnostic studies were performed and reviewed. ED treatments and interventions as stated above. 1625: The patient was evaluated in room A7. A complete history and physical examination was performed. 1759: Nicotine 1 patch 1800: Nicorette gum 1 piece MT - PRN 4: Klor-Con M10 40 meq PO 2027: Klor-Con M10 40 meq PO 2046: The patient was accepted to [facility] for further management. Medical Decision Differential diagnosis: Etiologies such as mood disorder, infection, hypoglycemia, electrolyte abnormalities, cardiac sources, intracerebral event, toxicologic, neurologic, as well as others were entertained. Patient is a 25-year-old female that presents to ER for Tylenol overdose. She took 4 tabs of Tylenol last night. She admits to mild nausea which has been present for the past several months. CBC was unremarkable. BMP shows a potassium of 2.8. Potassium was repleted with 80 mEq. Bilirubin all LFTs was unremarkable. Tylenol was negative. Alcohol is negative. UA was negative. was negative. Patient was agreeable on a 201 to come in for admission for suicidal thoughts. Medication Reconcilliation Current Medication List: was personally reviewed by me Blood Pressure Screening Patient's blood pressure: Normal blood pressure Impression Primary Impression: Suicide attempt Additional Impression: Hypokalemia Scribe Attestation The scribe's documentation has been prepared under my direction and personally reviewed by me in its entirety. I confirm that the note above accurately reflects all work, treatment, procedures, and medical decision making performed by me. Departure Information Dispostion Mental Health Acute Care Referrals No Doctor, Assigned (PCP) Patient Instructions My [facility] Problem Qualifiers
[2016-12-04] MEDS ORDERED: BUPRENORPHINE/NALOXONE 8/2 MG TAB SL SCH (22:00)
[2016-12-04] MEDS ORDERED: NURSING VERBAL MED ORDER ONE (22:30)
[2016-12-04] MEDS ORDERED: RISPERIDONE 1 MG TAB PO PRN (22:45)
[2016-12-04] MEDS ORDERED: BUPRENORPHINE/NALOXONE 8/2 MG TAB SL STA (22:47)
[2016-12-04 22:56] VITALS: BP 104/68; TEMP 37.1; BMI 15.5
[2016-12-05 06:50] VITALS: BP_SYST 111; BP_SYST 121; BP_DIAS 73; BP_DIAS 86; PULSE 137; PULSE 156; PULSE 77; TEMP 36.8
[2016-12-05 06:53] VITALS: Ht 160 cm; Wt 40.2 kg
[2016-12-05] MEDS ORDERED: INFLUENZA VIRUS QUAD VACCINE 0.5 ML SYR IM. ONE (08:00)
[2016-12-05] MEDS ORDERED: INFLUENZA ADMINISTRATION CHARGE ONE (08:00)
[2016-12-05 08:38] LABS: POTASSIUM 4.3 mmol/L (3.5-5.1)
[2016-12-05 08:51] LABS: CHOLESTEROL/HDL RATIO 2.7
[2016-12-05] MEDS ORDERED: NICOTINE 14 MG/24 HR TDSY TD SCH (09:00)
[2016-12-05] MEDS ORDERED: BUPRENORPHINE/NALOXONE 8/2 MG TAB SL SCH ×2 (09:00→22:00)
[2016-12-05 11:37] VITALS: BP 106/67; PULSE 85; TEMP 36.7
[2016-12-05] MEDS ORDERED: BUPRENORPHINE/NALOXONE 8/2 MG TAB SL ONE (11:45)
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
[2016-12-05] MEDS ORDERED: BUPRENORPHINE HCL 2 MG SUBL SL ONE (13:30)
[2016-12-05] MEDS: NICOTINE 21 MG/24 HR TDSY TD SCH (19:27)
[2016-12-05] MEDS: RISPERIDONE ODT 0.5MG PO SCH (21:21)
[2016-12-05 22:21] VITALS: BP 100/71; PULSE 90
[2016-12-06 07:11] VITALS: BP_SYST 103; BP_SYST 93; BP_DIAS 60; BP_DIAS 67; PULSE 106; TEMP 36.6
[2016-12-06] MEDS ORDERED: BUPRENORPHINE/NALOXONE 8/2 MG TAB SL SCH (09:00)
[2016-12-06] MEDS: BUPRENORPHINE/NALOXONE 8/2 MG TAB SL SCH (12:04)
[2016-12-06] MEDS: NICOTINE 21 MG/24 HR TDSY TD SCH (12:06)
[2016-12-06 16:12] VITALS: BP 102/71; PULSE 105
--- NOTE | 2016-12-06 16:46 | Psychiatric Progress Notes ---
Progress Note Date of Service Dec 06, 2016. Interval History Patient remains withdrawn and isolative in her room. Chief Complaint "Noncommunicative". Subjective Patient was seen & assessed interval progress reviewed with Nursing. Patient has remained isolative in her room. She has not been attending groups. She refused to answer any of my questions today. Appeared guarded. Review of Systems Psych: denies symptoms other than stated above Constitutional: denied Cardiovascular: denied GI: denied Neurologic: denied Remainder of 10 body systems also reviewed and denied other than noted above. Sleep Information Total Hours of Sleep: 8.50 Meal Information Percent of Lunch Consumed: 30 Mental Status Exam During interview pt is: alert and oriented, guarded Appearance: appropriately groomed, appeared stated age Eye contact is: poor Motor behavior is: no abnormal motor movements Speech: normal in rate, rhythm & volume Affect: depressed, flat Mood is: depressed Thought process: blocking Thought content: paranoid Suicidal thought are: denied Homicidal thoughts are: denied Hallucinations: denies auditory, denies visual Cognition: memory grossly intact, attention grossly intact, language grossly intact Intelligence estimated to be: consistent with level of education Insight: limited Judgement: limited Impression 25 yo female with no prior history of cony or psychosis, hx of OD attempts, currently denies SI, possible confusion last pm was related to anticholinergic side effects of Benadryl. Family history is significant for schizophrenia so possibly first break psychosis over depression with psychotic features. She denies bulimia but K very low upon admission, normalized today following 2 doses of K dur in the ED. This am she is very flat, guarded with delay in response suggestive of thought disorganization/ongoing psychosis. Plan (1) Unspecified psychosis 12/05-The patient is admitted to [facility] ([facility] mental health unit) on q 15 min checks (behavioral with suicide precautions) for safety. The patient will participate in group, recreational and milieu therapies and will be offered additional individual and family sessions as clinically appropriate. Trial Risperdal M Tab 0.5mg qid PRN anxiety/agitation. -Risperdal M Tab 0.5mg qHS scheduled this hs. Patient agreeable following discussion of indication and need to monitor for metabolic side effects and TD, low dose given low BMI. -FLP & FBG drawn this AM all within nml limits. Triglycerides = 77; Total cholesterol = 104; LDL = 50; HDL = 39. FBG = 85. A private room remains medically necessary for the safety of self and others as presents this am as paranoid and behaviors have been somewhat unpredictable. Cogentin prn dystonia if needed patient has given variable reports of whether she was/was not admitted to [facility], will obtain records if available 12/06 -remains guarded and withdrawn. Due to paranoia and level of disorganization of thought process with remain in medically necessary private room and continue Risperdal M tab (2) Opiate dependence LYNNE completed for [facility] on admission, attempting to verify dosing and plan; unable to participate in brief intervention, in structured D&A program (3) Tachycardia 12/05 -EKG ordered to evaluate tachycardia--may have been related to anxiety due to psychosis or 1 mg dose of Risperdal night previously -VS ordered q shift to monitor for changes (4) Hypokalemia 12/05-potassium levels this AM = 4.3 -continue with usual I&O monitoring (5) Nicotine dependence 12/05--patient unable to participate in brief intervention at this time. nicotine patch Discharge / Aftercare Planning Primary Care Physician: Name: Ghazala lui [facility] Therapist: Name: Kayla @ [facility] Visit Code E&M Code: 09215 Inventory Assets Strengths: supportive boyfriend, motivation to see son Needs: lack of family support, child currently in foster care Risk Factors Assessment : Yes Health problems: No Mental Health Diagnoses: No Substance use disorders: Yes Previous attempt: Yes Smoker: Yes Protective Factors Assessment Employed: No Stable relationships: Yes Supportive family: No Data Vital Signs Last 24 Hrs: Date Time Temp Pulse Resp B/P (MAP) Pulse Ox O2 Delivery O2 Flow Rate FiO2 12/06/16 16:12 105 102/71 12/06/16 07:11 36.6 106 16 93/60 103/67 12/05/16 22:21 90 16 100/71 Meds Administered Last 24 Hrs: Meds Administered (Past 24Hrs) Medications (Trade) Dose Ordered Sig/Audrey Route Start Time Stop Time Status Last Admin Dose Admin Nicotine Polacrilex (Nicorette 2MG Gum) 1 piece PRN PRN MT 12/04/16 18:00 12/04/16 21:56 DC 12/04/16 18:02 1 PIECE Nicotine (Nicoderm Cq 14MG Patch) 1 patch STK-MED ONCE .ROUTE 12/04/16 17:59 12/04/16 18:00 DC 12/04/16 18:01 1 PATCH Potassium Chloride (Klor-Con M10) 40 meq NOW STAT PO 12/04/16 18:34 12/04/16 18:35 DC 12/04/16 18:51 40 MEQ Potassium Chloride (Klor-Con M10) 40 meq NOW STAT PO 12/04/16 20:28 12/04/16 20:29 DC 12/04/16 20:28 40 MEQ Risperidone (Risperdal Tab) 1 mg TID PRN PO 12/04/16 22:45 12/05/16 10:53 DC 12/04/16 22:50 1 MG Buprenorphine/ Naloxone (Suboxone Tab) 1 tab NOW STAT SL 12/04/16 22:47 12/04/16 22:48 DC 12/04/16 22:50 1 TAB Risperidone (Risperdal M Tab) 0.5 mg HS PO 12/05/16 22:00 01/04/17 21:59 12/05/16 21:21 0.5 MG Buprenorphine/ Naloxone (Suboxone Tab) 1 tab 1145 ONCE SL 12/05/16 11:45 12/05/16 11:46 DC 12/05/16 11:40 1 TAB Buprenorphine/ Naloxone (Suboxone Tab) 1.5 tab QAM SL 12/06/16 09:00 01/03/17 21:59 12/06/16 12:04 1.5 TAB Nicotine (Nicoderm Cq 21MG Patch) 1 patch QAM TD 12/06/16 09:00 01/05/17 08:59 12/06/16 12:06 1 PATCH Problem Qualifiers (1) Opiate dependence: Substance use status: uncomplicated Qualified Codes: F11.20 - Opioid dependence, uncomplicated
[2016-12-06] MEDS: RISPERIDONE ODT 0.5MG PO SCH (21:40)
[2016-12-07 06:59] VITALS: BP_SYST 108; BP_SYST 111; BP_DIAS 73; BP_DIAS 75; PULSE 102; PULSE 132; TEMP 36.6
[2016-12-07] MEDS: BUPRENORPHINE/NALOXONE 8/2 MG TAB SL SCH ×2 (09:00→09:07)
[2016-12-07] MEDS: NICOTINE 21 MG/24 HR TDSY TD SCH (09:09)
[2016-12-07 13:55] VITALS: BP 111/75; PULSE 98
[2016-12-07] MEDS: ACETAMINOPHEN 325 MG TAB PO PRN (15:15)
--- NOTE | 2016-12-07 15:29 | Psychiatric Progress Notes ---
Progress Note Date of Service Dec 07, 2016. Interval History Patient remains withdrawn and isolative in her room. Chief Complaint "Is my 72 hours up yet". Subjective Patient was seen & assessed interval progress reviewed with Nursing. Patient declined Risperidone last night as she did not feel that she needed. She was hoping to be discharged today as she thought 72 hour notice was up today. She had been withdrawn and isolative from her peers yesterday morning but had two visits from her significant other and appeared to be more engaging with staff and peers after this. She was initially willing to converse with me this morning but after reviewing that her 72 hour notice to withdraw from services was not up until tomorrow she again withdrew and was noncommunicative with myself. She was unwilling to discuss alternatives to Risperidone or discuss if she was experiencing any problems or side effects from it. Review of Systems Psych: denies symptoms other than stated above Constitutional: denied Cardiovascular: denied GI: denied Neurologic: denied Remainder of 10 body systems also reviewed and denied other than noted above. Sleep Information Total Hours of Sleep: 6.50 Meal Information Percent of Lunch Consumed: 0 Percent of Dinner Consumed: 100 Mental Status Exam During interview pt is: alert and oriented, guarded Appearance: appropriately groomed, appeared stated age Eye contact is: poor Motor behavior is: no abnormal motor movements Speech: normal in rate, rhythm & volume Affect: depressed, flat Mood is: depressed Thought process: blocking Thought content: paranoid Suicidal thought are: denied Homicidal thoughts are: denied Hallucinations: denies auditory, denies visual Cognition: memory grossly intact, attention grossly intact, language grossly intact Intelligence estimated to be: consistent with level of education Insight: limited Judgement: limited Impression 25 yo female with no prior history of cony or psychosis, hx of OD attempts, currently denies SI, possible confusion last pm was related to anticholinergic side effects of Benadryl. Family history is significant for schizophrenia so possibly first break psychosis over depression with psychotic features. She denies bulimia but K very low upon admission, normalized today following 2 doses of K dur in the ED. This am she is very flat, guarded with delay in response suggestive of thought disorganization/ongoing psychosis. Plan (1) Unspecified psychosis 12/05-The patient is admitted to [facility] ([facility] mental health unit) on q 15 min checks (behavioral with suicide precautions) for safety. The patient will participate in group, recreational and milieu therapies and will be offered additional individual and family sessions as clinically appropriate. Trial Risperdal M Tab 0.5mg qid PRN anxiety/agitation. -Risperdal M Tab 0.5mg qHS scheduled this hs. Patient agreeable following discussion of indication and need to monitor for metabolic side effects and TD, low dose given low BMI. -FLP & FBG drawn this AM all within nml limits. Triglycerides = 77; Total cholesterol = 104; LDL = 50; HDL = 39. FBG = 85. A private room remains medically necessary for the safety of self and others as presents this am as paranoid and behaviors have been somewhat unpredictable. Cogentin prn dystonia if needed patient has given variable reports of whether she was/was not admitted to [facility], will obtain records if available 12/06 -remains guarded and withdrawn. Due to paranoia and level of disorganization of thought process with remain in medically necessary private room and continue Risperdal M tab 12/07 - remains guarded and paranoid and private room remains medically necessary. Will encourage to take Risperdal M tab to address paranoia. (2) Opiate dependence LYNNE completed for [facility] on admission, attempting to verify dosing and plan; unable to participate in brief intervention, in structured D&A program (3) Tachycardia 12/05 -EKG ordered to evaluate tachycardia--may have been related to anxiety due to psychosis or 1 mg dose of Risperdal night previously -VS ordered q shift to monitor for changes (4) Hypokalemia 12/05-potassium levels this AM = 4.3 -continue with usual I&O monitoring (5) Nicotine dependence 12/05--patient unable to participate in brief intervention at this time. nicotine patch Discharge / Aftercare Planning Primary Care Physician: Name: Ghazala lui [facility] Therapist: Name: Kayla @ [facility] Visit Code E&M Code: 63426 Inventory Assets Strengths: supportive boyfriend, motivation to see son Needs: lack of family support, child currently in foster care Risk Factors Assessment : Yes Health problems: No Mental Health Diagnoses: No Substance use disorders: Yes Previous attempt: Yes Smoker: Yes Protective Factors Assessment Employed: No Stable relationships: Yes Supportive family: No Data Vital Signs Last 24 Hrs: Date Time Temp Pulse Resp B/P (MAP) Pulse Ox O2 Delivery O2 Flow Rate FiO2 12/07/16 13:55 98 18 111/75 12/07/16 06:59 36.6 102 16 108/75 132 111/73 12/06/16 16:12 105 102/71 Meds Administered Last 24 Hrs: Meds Administered (Past 24Hrs) Medications (Trade) Dose Ordered Sig/Audrey Route Start Time Stop Time Status Last Admin Dose Admin Risperidone (Risperdal M Tab) 0.5 mg HS PO 12/05/16 22:00 01/04/17 21:59 12/05/16 21:21 0.5 MG Buprenorphine/ Naloxone (Suboxone Tab) 1.5 tab QAM SL 12/06/16 09:00 01/03/17 21:59 12/06/16 12:04 1.5 TAB Nicotine (Nicoderm Cq 21MG Patch) 1 patch QAM TD 12/06/16 09:00 01/05/17 08:59 12/07/16 09:09 1 PATCH Problem Qualifiers (1) Opiate dependence: Substance use status: uncomplicated Qualified Codes: F11.20 - Opioid dependence, uncomplicated
[2016-12-07 16:14] VITALS: BP 116/73; PULSE 124
[2016-12-07] MEDS: RISPERIDONE ODT 0.5MG PO SCH (21:07)
[2016-12-08 07:00] VITALS: BP_SYST 110; BP_SYST 96; BP_DIAS 63; BP_DIAS 74; PULSE 116; PULSE 93; TEMP 36.8
[2016-12-08 07:24] LABS: POTASSIUM 4.2 mmol/L (3.5-5.1)
--- NOTE | 2016-12-08 08:34 | Psychiatric Progress Notes ---
Progress Note Date of Service Dec 08, 2016. Interval History Mariia Rand is a 25-year-old female who currently lives in [place] with her boyfriend. Mariia Rand was admitted on a 201 voluntary commitment. Patient is admitted from home. The patient was brought to the ED by her boyfriend after a recommendation for evaluation by Nick Amanda. Chief Complaint "I don't know". Subjective Patient was seen & assessed interval progress reviewed with Treatment Team. Staff report the patient refused her risperidone 2 days ago, and yesterday refused her Suboxone. She eats meals in her room, and has poor by mouth intake. Her boyfriend visited for 2 hours yesterday, was frustrated with her when she refused to take her risperidone at bedtime, and said she barely spoke while he was there. She did take the risperidone later with significant staff encouragement. She refused all groups other than community meeting, and had little interaction with others. Today, she is seen in her room, where she is lying in bed but awake. She answers most questions with 1-2 word answers, and denies most symptoms. She states that she does not know why she is in the hospital, but that her boyfriend wanted her to come in to "feel better." She cannot explain this any further, and denies that she has concerns about how she is feeling. She does admit that her thinking is jumbled and confused, but denies that she is hearing voices, having visual hallucinations, or has thoughts of harming herself or others. She denies that she's been diagnosed with a mental illness, but then admits to a history of psychiatric treatment. She admits that she overdosed on sleeping pills, and says she doesn't know why she did this. She says she asked to leave the hospital because "I didn't feel good, felt like someone was gonna try to hurt me." She continues to feel unsafe , but denies that she is afraid of anyone in particular person. She denies ideas of reference, thought reading, thought insertion, and thought withdrawal, but has long positive for answering most questions. She denies that she feels anxious or is worrying excessively. She denies feeling depressed or having crying spells. She reports good appetite, but sleep has been poor. We reviewed the goals of her treatment here, and the need to proceed with a 302 involuntary commitment as she is asking to leave but is not stable, does not yet feel safe, and we do not have a good discharge plan. She denied any questions about this. Sleep Information Total Hours of Sleep: 6.50 Meal Information Percent of Lunch Consumed: 0 Percent of Dinner Consumed: 80 Mental Status Exam During interview pt is: alert and oriented, guarded, other (answers questions, but with brief, vague answers) Appearance: appropriately dressed, appropriately groomed, appeared stated age, other (thin white female lying in bed, dressed in a sweatshirt, with a mykel bear next to her.) Eye contact is: poor (makes only very brief eye contact) Motor behavior is: no abnormal motor movements Speech: normal in rate, rhythm & volume (minimal, long causes at times before answering) Affect: flat, other (incongruent with stated mood) Mood is: other ("good") Thought process: blocking Thought content: paranoid, other (paucity of thought content) Suicidal thought are: denied (but admits that she overdosed prior to admission) Homicidal thoughts are: denied Hallucinations: denies auditory, denies visual Cognition: memory grossly intact, attention grossly intact, language grossly intact Intelligence estimated to be: consistent with level of education Insight: limited Judgement: limited Impression 25 yo female with no known history of cony or psychosis, who presents with psychosis after an overdose on Tylenol PM in a suicide attempt. She appears psychotic and thought blocked, and has a family history of schizophrenia, so possibly first break psychosis, or depression with psychotic features. She denies bulimia but K very low upon admission, and oral intake has been poor. She is flat, paranoid, guarded, with delayed responses, suggestive of thought disorganization/ongoing psychosis. She has been started on risperidone, and that she submitted a 72 hour notice requesting to withdraw from treatment but is still not stable for discharge, we will pursue a 302 involuntary commitment based on a petition from the emergency room staff. Plan (1) Unspecified psychosis 12/05-The patient is admitted to [facility] ([facility]) on q 15 min checks (behavioral with suicide precautions) for safety. The patient will participate in group, recreational and milieu therapies and will be offered additional individual and family sessions as clinically appropriate. Trial Risperdal M Tab 0.5mg qid PRN anxiety/agitation. -Risperdal M Tab 0.5mg qHS scheduled this hs. Patient agreeable following discussion of indication and need to monitor for metabolic side effects and TD, low dose given low BMI. -FLP & FBG drawn this AM all within nml limits. Triglycerides = 77; Total cholesterol = 104; LDL = 50; HDL = 39. FBG = 85. A private room remains medically necessary for the safety of self and others as presents this am as paranoid and behaviors have been somewhat unpredictable. Milagros prn dystonia if needed patient has given variable reports of whether she was/was not admitted to [facility], will obtain records if available 12/06 -remains guarded and withdrawn. Due to paranoia and level of disorganization of thought process with remain in medically necessary private room and continue Risperdal M tab 12/07 - remains guarded and paranoid and private room remains medically necessary. Will encourage to take Risperdal M tab to address paranoia. 12/08--remains paranoid and suspicious, feeling that someone here may want to hurt her. Continue medically necessary private room. --She is unwilling to rescind her 72 hour notice, and is not yet stable for discharge, so we'll proceed with a 302 involuntary commitment. --Increase risperidone to 1 mg daily at bedtime. --Get collateral information from her boyfriend, and schedule a family meeting when she is less psychotic. (2) Opiate dependence LYNNE completed for [facility] on admission, attempting to verify dosing and plan; unable to participate in brief intervention, in structured D&A program 12/08--patient has refused Suboxone the past 2 days, and if she continues to refuse it, we can discontinue it. (3) Tachycardia 12/05 -EKG ordered to evaluate tachycardia--may have been related to anxiety due to psychosis or 1 mg dose of Risperdal night previously -VS ordered q shift to monitor for changes (4) Hypokalemia 12/05-potassium levels this AM = 4.3 -continue with usual I&O monitoring (5) Nicotine dependence 12/05--patient unable to participate in brief intervention at this time. nicotine patch Discharge / Aftercare Planning Primary Care Physician: Name: Ghazala lui [facility] Therapist: Name: Kayla @ [facility] Visit Code E&M Code: 08962 Inventory Assets Strengths: supportive boyfriend, motivation to see son Needs: lack of family support, child currently in foster care Risk Factors Assessment : Yes Health problems: No Mental Health Diagnoses: No Substance use disorders: Yes Previous attempt: Yes Smoker: Yes Protective Factors Assessment Employed: No Stable relationships: Yes Supportive family: No Data Vital Signs Last 24 Hrs: Date Time Temp Pulse Resp B/P (MAP) Pulse Ox O2 Delivery O2 Flow Rate FiO2 12/08/16 07:00 36.8 93 16 110/74 116 96/63 12/07/16 16:14 124 16 116/73 12/07/16 13:55 98 18 111/75 Meds Administered Last 24 Hrs: Meds Administered (Past 24Hrs) Medications (Trade) Dose Ordered Sig/Audrey Route Start Time Stop Time Status Last Admin Dose Admin Buprenorphine/ Naloxone (Suboxone Tab) 1.5 tab QAM SL 12/06/16 09:00 01/03/17 21:59 12/06/16 12:04 1.5 TAB Nicotine (Nicoderm Cq 21MG Patch) 1 patch QAM TD 12/06/16 09:00 01/05/17 08:59 12/07/16 09:09 1 PATCH Lab Results Last 24 Hrs: Last 24 Hours Test 12/08/16 06:43 Sodium Level 141 mmol/L Potassium Level 4.2 mmol/L Chloride Level 106 mmol/L Carbon Dioxide Level 27 mmol/L Anion Gap 8.0 mmol/L Problem Qualifiers (1) Opiate dependence: Substance use status: uncomplicated Qualified Codes: F11.20 - Opioid dependence, uncomplicated
[2016-12-08] MEDS: BUPRENORPHINE/NALOXONE 8/2 MG TAB SL SCH (09:00)
[2016-12-08] MEDS: NICOTINE 21 MG/24 HR TDSY TD SCH (09:35)
[2016-12-08] MEDS: RISPERIDONE ODT 0.5MG PO PRN (15:12)
[2016-12-08 18:00] VITALS: BP 115/82; PULSE 106
[2016-12-08] MEDS: RISPERIDONE ODT 1MG PO SCH (21:21)
[2016-12-09 06:48] VITALS: BP_SYST 109; BP_SYST 119; BP_DIAS 77; BP_DIAS 81; PULSE 103; PULSE 81; TEMP 36.7
[2016-12-09] MEDS: NICOTINE 21 MG/24 HR TDSY TD SCH (08:31)
[2016-12-09] MEDS: BUPRENORPHINE/NALOXONE 8/2 MG TAB SL SCH (08:41)
--- NOTE | 2016-12-09 09:38 | Psychiatric Progress Notes ---
Progress Note Date of Service Dec 09, 2016. Interval History Mariia Rand is a 25-year-old female who currently lives in [place] with her boyfriend. Mariia Rand was admitted on a 201 voluntary commitment. Patient is admitted from home. The patient was brought to the ED by her boyfriend after a recommendation for evaluation by Nick Amanda. Chief Complaint "Good". Subjective Patient was seen & assessed interval progress reviewed with Nursing. Staff report she refused most groups, but did attend AM Community Meeting yesterday and part of a game group, although she didn't participate. She initially agreed to take her scheduled risperidone last night, that then took the medication and threw it in the trash. She refused to respond to staff's questions, and was using sign language and writing on paper to communicate. She refused staff's attempts to give her prn risperidone. She refused to eat lunch and dinner yesterday, and had to be encouraged to drink fluids. Her boyfriend visited, and initially she did not want to see him, but eventually she did meet with him. She attempted to leave the unit with him at the end of the visit, and did not seem to remember that she was on an involuntary commitment. She has disorganized behavior, threw cups of soda on her floor along with other items this morning, and could not explain why she did it. She spends most of her time in her room in bed, is very guarded, and appears to be responding to internal stimuli, although she denies hallucinations when asked. She told staff that she believed she was going to on her birthday (which is today). After staff spent a significant amount of time with her this morning, she did agree to take risperidone 0.5 mg when necessary. She told staff she thought that they wanted to kill her. On my assessment, she was seen with Galo Sarkar, MS 3. She willingly got out of bed and came to the interview room, but was a limited historian, answering "good" to most questions. She says she has been doing "nothing really," and although she says she went to a group, she cannot tell me anything about when the group was or what it was about. She says she is "not sure" why she is here, and cannot state any goals for hospitalization. She says she has been refusing her Suboxone for the last several days because "it made me feel not good, made my fingers tingly." She says she is "stressed about being here," but says she feels safe. She denies feeling confused and denies hallucinations, but appears thought blocked and is if she is responding to internal stimuli, and is not a reliable historian. She initially states she does recall being suicidal at the time of admission, but then says she can't remember what she was thinking. She claims appetite is good and that she is eating well here, and one reflected back to her that she refused 2 out of 3 meals yesterday, she does not respond. Sleep Information Total Hours of Sleep: 7.00 Meal Information Percent of Breakfast Consumed: 90 Percent of Lunch Consumed: 0 Percent of Dinner Consumed: 0 Mental Status Exam During interview pt is: alert and oriented, guarded, other (answers questions, but not a reliable historian.) Appearance: appropriately dressed, appropriately groomed, appeared stated age, other (seated in no acute distress, dressed in pajama bottoms and a hooded sweatshirt, very thin) Eye contact is: fair (patient makes more consistent eye contact today, but gaze repeatedly reverts to the corner of the room) Motor behavior is: steady gait & station, no abnormal motor movements Speech: other (speech is minimal, nonspontaneous, monotone, and delayed) Affect: flat, other (incongruent with stated mood) Mood is: other ("good") Thought process: blocking Thought content: paranoid (told staff that she thought they were going to kill her), other (paucity of thought content) Suicidal thought are: denied (but admits that she overdosed prior to admission) Homicidal thoughts are: denied Hallucinations: denies auditory (but appears to be responding to internal stimuli), denies visual Cognition: language grossly intact Intelligence estimated to be: consistent with level of education Insight: limited Judgement: limited Impression 25 yo female with no known history of cony or psychosis, who presents with psychosis after an overdose on Tylenol PM in a suicide attempt. She appears paranoid and thought blocked, and has a family history of schizophrenia, so this may represent a first break psychosis, or depression with psychotic features. She denies eating disorder, but she is underweight, is eating very little here, and she was hypokalemic upon admission. She is flat, paranoid, guarded, with delayed responses, suggestive of thought disorganization/ongoing psychosis. She has been started on risperidone, but refuses it at times. She was initially voluntary but submitted a 72 hour notice which she was not willing to rescind, so was placed on a 302 involuntary commitment on 12/08/2016 based on a petition from the emergency room staff. She will likely require a 303 involuntary commitment. Her boyfriend whom she lives with has been visiting , and would be a good source of collateral information. Plan (1) Unspecified psychosis 12/05-The patient is admitted to [facility] ([facility]) on q 15 min checks (behavioral with suicide precautions) for safety. The patient will participate in group, recreational and milieu therapies and will be offered additional individual and family sessions as clinically appropriate. Trial Risperdal M Tab 0.5mg qid PRN anxiety/agitation. -Risperdal M Tab 0.5mg qHS scheduled this hs. Patient agreeable following discussion of indication and need to monitor for metabolic side effects and TD, low dose given low BMI. -FLP & FBG drawn this AM all within nml limits. Triglycerides = 77; Total cholesterol = 104; LDL = 50; HDL = 39. FBG = 85. A private room remains medically necessary for the safety of self and others as presents this am as paranoid and behaviors have been somewhat unpredictable. Cogentin prn dystonia if needed patient has given variable reports of whether she was/was not admitted to [facility], will obtain records if available 12/06 -remains guarded and withdrawn. Due to paranoia and level of disorganization of thought process with remain in medically necessary private room and continue Risperdal M tab 12/07 - remains guarded and paranoid and private room remains medically necessary. Will encourage to take Risperdal M tab to address paranoia. 12/08--remains paranoid and suspicious, feeling that someone here may want to hurt her. Continue medically necessary private room. --She is unwilling to rescind her 72 hour notice, and is not yet stable for discharge, so we'll proceed with a 302 involuntary commitment. --Increase risperidone to 1 mg daily at bedtime. --Get collateral information from her boyfriend, and schedule a family meeting when she is less psychotic. 12/09 --Psychosis continues, and she refused her risperidone last night, but took it this morning with significant staff encouragement. --Continue to encourage the patient to participate in treatment, but she is very guarded and isolative. --She is now on a 302 involuntary commitment, and will likely require a 303 commitment. Should she continue to refuse antipsychotic medication, and believe she would benefit from medications over objection, as she is grossly psychotic and unable to participate in assessments her treatment due to disordered thinking and behavior. --Attempted to contact her boyfriend for collateral information, but his mailbox was full and unable to leave a message; will ask staff to speak with him and attempting to get more information when he visits. (2) Opiate dependence LYNNE completed for [facility] on admission, attempting to verify dosing and plan; unable to participate in brief intervention, in structured D&A program 12/08--patient has refused Suboxone the past 2 days, and if she continues to refuse it, we can discontinue it. 12/09--patient continues to refuse Suboxone, stating it makes her feel unwell. I will discontinue it. (3) Underweight 12/09 --Rule out eating disorder once patient is less psychotic and better able to participate in the interview. --Continue to encourage good by mouth intake, both food and fluids, as she has been refusing multiple meals, and has been hypertensive and tachycardic at times. (4) Tachycardia 12/05 -EKG ordered to evaluate tachycardia--may have been related to anxiety due to psychosis or 1 mg dose of Risperdal night previously -VS ordered q shift to monitor for changes (5) Hypokalemia 12/05-potassium levels this AM = 4.3 -continue with usual I&O monitoring (6) Nicotine dependence 12/05--patient unable to participate in brief intervention at this time. nicotine patch Discharge / Aftercare Planning Primary Care Physician: Name: Ghazala lui [facility] Therapist: Name: Kayla @ [facility] Visit Code E&M Code: 95543 Inventory Assets Strengths: supportive boyfriend, motivation to see son Needs: lack of family support, child currently in foster care Risk Factors Assessment : Yes Health problems: No Mental Health Diagnoses: No Substance use disorders: Yes Previous attempt: Yes Smoker: Yes Protective Factors Assessment Employed: No Stable relationships: Yes Supportive family: No Data Vital Signs Last 24 Hrs: Date Time Temp Pulse Resp B/P (MAP) Pulse Ox O2 Delivery O2 Flow Rate FiO2 12/09/16 06:48 36.7 81 16 119/81 103 109/77 12/08/16 18:00 106 115/82 Problem Qualifiers (1) Opiate dependence: Substance use status: uncomplicated Qualified Codes: F11.20 - Opioid dependence, uncomplicated
[2016-12-09] MEDS: RISPERIDONE ODT 0.5MG PO PRN (09:47)
[2016-12-09 14:52] VITALS: BP 105/73; PULSE 84
[2016-12-09] MEDS: RISPERIDONE ODT 1MG PO SCH (21:12)
[2016-12-09 22:10] VITALS: BP 107/72; PULSE 87
[2016-12-10 06:46] VITALS: BP_SYST 109; BP_SYST 115; BP_DIAS 78; BP_DIAS 82; PULSE 109; PULSE 123; TEMP 36.6
[2016-12-10] MEDS: NICOTINE 21 MG/24 HR TDSY TD SCH (08:35)
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
[2016-12-10] MEDS: RISPERIDONE ODT 0.5MG PO PRN (11:47)
[2016-12-10 14:37] VITALS: BP 108/76; PULSE 91
[2016-12-10] MEDS: ACETAMINOPHEN 325 MG TAB PO PRN (15:38)
[2016-12-10] MEDS: RISPERIDONE ODT 1MG PO SCH (20:57)
[2016-12-10 22:22] VITALS: BP 104/72; PULSE 88; TEMP 36.6
[2016-12-10] MEDS: hydrOXYzine HCL 25 MG TAB PO PRN (22:23)
[2016-12-11 06:37] VITALS: BP_SYST 112; BP_SYST 127; BP_DIAS 80; PULSE 112; PULSE 120; TEMP 36.6
[2016-12-11] MEDS: NICOTINE 21 MG/24 HR TDSY TD SCH (09:00)
[2016-12-11] MEDS: BENZTROPINE MESYLATE 0.5 MG TAB PO PRN (09:10)
[2016-12-11] MEDS ORDERED: DiphenhydrAMINE HCL 50 MG/ML VIAL IM ONE (10:00)
[2016-12-11] MEDS: RISPERIDONE ODT 0.5MG PO PRN (10:38)
[2016-12-11 10:40] VITALS: BP 111/76; PULSE 109; TEMP 36.8
--- NOTE | 2016-12-11 11:48 | Psychiatric Progress Notes ---
Progress Note Date of Service Dec 11, 2016. Interval History Mariia Rand is a 26-year-old female who currently lives in [place] with her boyfriend. Mariia Rand was admitted on a 201 voluntary commitment. Patient is admitted from home. The patient was brought to the ED by her boyfriend after a recommendation for evaluation by Nick Amanda. Chief Complaint "Can I have some ibuprofen?". Subjective Patient was seen & assessed interval progress reviewed with Treatment Team. The patient is having opiate withdrawal symptoms today including muscle aches, restlessness, and rhinorrhea. She denies diarrhea, gooseflesh. She had been refusing the suboxone because "it made me feel funny", but had been on subutex from [facility] for 2 years. Staff report that she has been spending more time out of her room and in groups. She is taking her meds with encouragement, but says she is only doing so to get out of here, not because she thinks she needs them. Today she says she still feels confused about why she is here, and so our concerns were again reviewed about her inability to care for herself, her fearful/delusional thinking. She had nothing more to say about her thinking other them "I feel better", but without further clarification. She denies aud/vis hallucinations, denies SI/HI. Review of Systems Constitutional: + problem reported (restlessness) ENT: + problem reported (rhinorrhea) Respiratory: No cough, No sputum, No wheezing, No shortness of breath, No dyspnea on exertion, No dyspnea at rest, No hemoptysis, No problem reported Cardiovascular: No chest pain, No orthopnea, No PND, No edema, No claudication , No palpitations, No problem reported Abdomen: No pain, No nausea, No vomiting, No diarrhea, No constipation, No GI bleeding, No problem reported Musculoskeletal: + problem reported (muscle aches) Neurologic: No memory loss, No paralysis, No weakness, No numbness/tingling, No vertigo, No balance problems, No problem reported Psychiatric: + anxiety Integumentary: No rash, No itch, No new/changing skin lesions, No color change , No bleeding, No problem reported Sleep Information Total Hours of Sleep: 6.50 Meal Information Percent of Breakfast Consumed: 90 Percent of Lunch Consumed: 40 Percent of Dinner Consumed: 50 Mental Status Exam During interview pt is: alert and oriented, guarded Appearance: appropriately dressed, disheveled, appeared stated age Eye contact is: fair Motor behavior is: steady gait & station, psychomotor agitation (restless shaking of her legs) Speech: other (minimal, quiet) Affect: flat, other (incongruent with stated mood) Mood is: other ("Fine") Thought process: goal directed Thought content: paranoid (today, the patient tells me that she does not feel that she is in any kind of danger. However, she wants to know if there is " some kind of investigation going on" about her, and then falls silent. She had previously indicated that she felt people were trying to kill her.), other ( paucity of thought content) Suicidal thought are: denied Homicidal thoughts are: denied Hallucinations: denies auditory, denies visual Cognition: language grossly intact Intelligence estimated to be: consistent with level of education Insight: limited Judgement: limited Impression Now here on a 303, is taking meds with encouragement. Risperdal just increased to 2 mg last night and will continue again tonight. Is having opiate withdrawal symptoms so will order Clonidine prn and has kaopectate in the event of diarrhea, but will need to be cautious due to low BP. She remains guarded and will not talk at length of her symptoms, but is able to be out of her room more, which is progress. Will likely need to increase risperdal but will monitor BP today to see if can tolerate another increase. Tachycardia persists. Plan (1) Unspecified psychosis 12/05-The patient is admitted to [facility] on q 15 min checks (behavioral with suicide precautions) for safety. The patient will participate in group, recreational and milieu therapies and will be offered additional individual and family sessions as clinically appropriate. Trial Risperdal M Tab 0.5mg qid PRN anxiety/agitation. -Risperdal M Tab 0.5mg qHS scheduled this hs. Patient agreeable following discussion of indication and need to monitor for metabolic side effects and TD, low dose given low BMI. -FLP & FBG drawn this AM all within nml limits. Triglycerides = 77; Total cholesterol = 104; LDL = 50; HDL = 39. FBG = 85. A private room remains medically necessary for the safety of self and others as presents this am as paranoid and behaviors have been somewhat unpredictable. Milagros romero dystonia if needed patient has given variable reports of whether she was/was not admitted to [facility], will obtain records if available 12/06 -remains guarded and withdrawn. Due to paranoia and level of disorganization of thought process with remain in medically necessary private room and continue Risperdal M tab 12/07 - remains guarded and paranoid and private room remains medically necessary. Will encourage to take Risperdal M tab to address paranoia. 12/08--remains paranoid and suspicious, feeling that someone here may want to hurt her. Continue medically necessary private room. --She is unwilling to rescind her 72 hour notice, and is not yet stable for discharge, so we'll proceed with a 302 involuntary commitment. --Increase risperidone to 1 mg daily at bedtime. --Get collateral information from her boyfriend, and schedule a family meeting when she is less psychotic. 12/09 --Psychosis continues, and she refused her risperidone last night, but took it this morning with significant staff encouragement. --Continue to encourage the patient to participate in treatment, but she is very guarded and isolative. --She is now on a 302 involuntary commitment, and will likely require a 303 commitment. Should she continue to refuse antipsychotic medication, and believe she would benefit from medications over objection, as she is grossly psychotic and unable to participate in assessments her treatment due to disordered thinking and behavior. --Attempted to contact her boyfriend for collateral information, but his mailbox was full and unable to leave a message; will ask staff to speak with him and attempting to get more information when he visits. 12/10/16 --Although the patient denies perceptual disturbances and voices no systematized delusional material, there is evidence that she remains psychotic and she appears to have little to no insight.. Specifically, the patient tells me that she wants to know if there is "an ongoing investigation" about her, but then declines to say why she believes this may be true. We are continuing to attempt to reach the patient's boyfriend for collateral information. The picture is complicated by the patient's history of opioid dependence. She also appears to be minimizing her shins of her history. For example, she tells me that she was only "outpatient" at the [facility], denies any history of overdoses, and says that she only cut herself as a teenager in order to be allowed to change high school so that she could go the same high school as a friend who had been transferred to the other school because she, herself, had cut herself. We'll the patient appears to shown some improvement, I suspect that she is quite psychotic underneath and is at substantial risk for serious physical injury where she not to be provided active psychiatric treatment at the inpatient level of care. 12/11 - Continue Risperdal 2 mg. HS - Reality orientation (2) Opiate dependence LYNNE completed for [facility] on admission, attempting to verify dosing and plan; unable to participate in brief intervention, in structured D&A program 12/08--patient has refused Suboxone the past 2 days, and if she continues to refuse it, we can discontinue it. 12/09--patient continues to refuse Suboxone, stating it makes her feel unwell. I will discontinue it. 12/11 - Clonidine 0.5 mg. Q 4 h prn opiate withdrawal - Kaopectate for diarrhea prn - Ibuprofen 800 mg. TID prn myalgias (3) Underweight 12/09 --Rule out eating disorder once patient is less psychotic and better able to participate in the interview. --Continue to encourage good by mouth intake, both food and fluids, as she has been refusing multiple meals, and has been hypertensive and tachycardic at times. (4) Tachycardia 12/05 -EKG ordered to evaluate tachycardia--may have been related to anxiety due to psychosis or 1 mg dose of Risperdal night previously -VS ordered q shift to monitor for changes 12/10/16 - the patient's pulse rate remains periodically elevated. She tells us that she is somewhat anxious and is experiencing withdrawal from opioids and nicotine. (5) Hypokalemia 12/05-potassium levels this AM = 4.3 -continue with usual I&O monitoring (6) Nicotine dependence 12/05--patient unable to participate in brief intervention at this time. nicotine patch 12/10/16 - today, the patient was able to discuss her use of the nicotine patch, but says that she wants to "get out of here so [she] can get a cigarette. Discharge / Aftercare Planning Primary Care Physician: Name: Ghazala lui [facility] Psychiatrist: Name: [facility] Intake -Lala Joey Date of Appointment: Dec 22, 2016 Time of Appointment: 10:00am Appointment Notes: [address] [facility] Therapist: Name: Kayla @ [facility] [place] Visit Code E&M Code: 15520 Inventory Assets Strengths: supportive boyfriend, motivation to see son Needs: lack of family support, child currently in foster care Risk Factors Assessment : Yes Health problems: No Mental Health Diagnoses: No Substance use disorders: Yes Previous attempt: Yes Smoker: Yes Protective Factors Assessment Jainism beliefs: Yes Employed: No Stable relationships: Yes Supportive family: No Data Vital Signs Last 24 Hrs: Date Time Temp Pulse Resp B/P (MAP) Pulse Ox O2 Delivery O2 Flow Rate FiO2 12/11/16 10:40 36.8 109 18 111/76 12/11/16 06:37 36.6 120 16 127/80 112 112/80 12/10/16 22:22 36.6 88 16 104/72 12/10/16 14:37 91 108/76 Meds Administered Last 24 Hrs: Meds Administered (Past 24Hrs) Medications (Trade) Dose Ordered Sig/Audrey Route Start Time Stop Time Status Last Admin Dose Admin Risperidone (Risperdal M Tab) 2 mg HS PO 12/10/16 22:00 01/09/17 21:59 12/10/16 20:57 2 MG Diphenhydramine HCl (Benadryl Inj) 25 mg NOW ONCE IM 12/11/16 10:00 12/11/16 10:01 DC 12/11/16 10:38 25 MG Lab Results Last 24 Hrs: 12/04/16 17:25 Red Blood Count 4.58, Mean Corpuscular Volume 93.7, Mean Corpuscular Hemoglobin 34.9, Mean Corpuscular Hemoglobin Concent 37.3, Mean Platelet Volume 9.4, Neutrophils (%) (Auto) 53.8, Lymphocytes (%) (Auto) 39.5, Monocytes (%) (Auto) 4.8, Eosinophils (%) (Auto) 1.2, Basophils (%) (Auto) 0.5, Neutrophils # (Auto) 3.57, Lymphocytes # (Auto) 2.62, Monocytes # (Auto) 0.32, Eosinophils # (Auto) 0.08, Basophils # (Auto) 0.03 12/04/16 17:25 12/08/16 06:43 Test 12/04/16 16:20 12/04/16 17:25 12/04/16 17:26 12/05/16 07:53 Urine Color YELLOW Urine Appearance CLEAR (CLEAR) Urine pH 6.5 (4.5-7.5) Urine Specific [place] 1.011 (1.000-1.030) Urine Protein NEG (NEG) Urine Glucose (UA) NEG (NEG) Urine Ketones NEG (NEG) Urine Occult Blood NEG (NEG) Urine Nitrite NEG (NEG) Urine Bilirubin NEG (NEG) Urine Urobilinogen NEG (NEG) Urine Leukocyte Esterase NEG (NEG) Urine Test NEG (NEG) Urine Opiates Screen NEG (NEG) Urine Methadone, Qualitative NEG (NEG) Urine Barbiturates NEG (NEG) Urine Phencyclidine (PCP) Level NEG (NEG) Ur Amphetamine/Methamphetamine NEG (NEG) MDMA (Ecstasy) Screen NEG (NEG) Urine Benzodiazepines Screen NEG (NEG) Urine Cocaine Metabolite NEG (NEG) Urine Marijuana (THC) NEG (NEG) White Blood Count 6.63 K/uL (4.8-10.8) Red Blood Count 4.58 M/uL (4.2-5.4) Hemoglobin 16.0 g/dL (12.0-16.0) Hematocrit 42.9 % (37-47) Mean Corpuscular Volume 93.7 fL (80-100) Mean Corpuscular Hemoglobin 34.9 pg (25-34) Mean Corpuscular Hemoglobin Concent 37.3 g/dl (32-36) Platelet Count 264 K/uL (130-400) Mean Platelet Volume 9.4 fL (7.4-10.4) Neutrophils (%) (Auto) 53.8 % Lymphocytes (%) (Auto) 39.5 % Monocytes (%) (Auto) 4.8 % Eosinophils (%) (Auto) 1.2 % Basophils (%) (Auto) 0.5 % Neutrophils # (Auto) 3.57 K/uL (1.4-6.5) Lymphocytes # (Auto) 2.62 K/uL (1.2-3.4) Monocytes # (Auto) 0.32 K/uL (0.11-0.59) Eosinophils # (Auto) 0.08 K/uL (0-0.5) Basophils # (Auto) 0.03 K/uL (0-0.2) RDW Standard Deviation 42.7 fL (36.4-46.3) RDW Coefficient of Variation 12.5 % (11.5-14.5) Immature Granulocyte % (Auto) 0.2 % Immature Granulocyte # (Auto) 0.01 K/uL (0.00-0.02) Est Creatinine Clear Calc Drug Dose 84.7 ml/min Estimated GFR () 144.8 Estimated GFR (Non- 124.9 BUN/Creatinine Ratio 7.8 (10-20) Bedside Glucose 111 mg/dl (70-90) Calcium Level 8.8 mg/dl (8.5-10.1) Total Bilirubin 0.3 mg/dl (0.2-1) Direct Bilirubin < 0.1 mg/dl (0-0.2) Aspartate Amino Transf (AST/SGOT) 12 U/L (15-37) Alanine Aminotransferase (ALT/SGPT) 13 U/L (12-78) Alkaline Phosphatase 65 U/L (45-117) Total Protein 7.5 gm/dl (6.4-8.2) Albumin 4.1 gm/dl (3.4-5.0) Thyroid Stimulating Hormone (TSH) 0.322 uIu/ml (0.300-4.500) Salicylates Level 5.8 mg/dl (2.8-20) Acetaminophen Level < 2 ug/ml (10-30) Ethyl Alcohol mg/dL < 3.0 mg/dl (0-3) Fasting Glucose 85 mg/dl (70-99) Triglycerides Level 77 mg/dl (0-150) Cholesterol Level 104 mg/dl (0-200) HDL Cholesterol 39 mg/dl LDL Cholesterol, Calculated 50 mg/dl VLDL Cholesterol, Calculated 15 mg/dl Cholesterol/HDL Ratio 2.7 Test 12/08/16 06:43 Anion Gap 8.0 mmol/L (3-11) Problem Qualifiers (1) Opiate dependence: Substance use status: uncomplicated Qualified Codes: F11.20 - Opioid dependence, uncomplicated
[2016-12-11] MEDS: CLONIDINE HCL 0.1 MG TAB PO PRN ×2 (12:39→22:01)
[2016-12-11] MEDS: IBUPROFEN 800 MG TAB PO PRN (12:40)
[2016-12-11 15:00] VITALS: BP 107/74; PULSE 96
[2016-12-11] MEDS: RISPERIDONE ODT 1MG PO SCH (21:05)
[2016-12-11 22:00] VITALS: BP 147/76; PULSE 128
[2016-12-12] MEDS: hydrOXYzine HCL 25 MG TAB PO PRN (00:06)
[2016-12-12] MEDS: IBUPROFEN 800 MG TAB PO PRN (00:06)
[2016-12-12 06:44] VITALS: BP_SYST 112; BP_SYST 96; BP_DIAS 58; BP_DIAS 62; PULSE 101; PULSE 112; TEMP 36.5
[2016-12-12] MEDS: NICOTINE 21 MG/24 HR TDSY TD SCH (08:30)
[2016-12-12] MEDS: RISPERIDONE ODT 0.5MG PO PRN (10:13)
--- NOTE | 2016-12-12 12:14 | Psychiatric Progress Notes ---
Progress Note Date of Service Dec 12, 2016. Interval History Mariia Rand is a 26-year-old female who currently lives in [place] with her boyfriend. Mariia Rand was admitted on a 201 voluntary commitment. Patient is admitted from home. The patient was brought to the ED by her boyfriend after a recommendation for evaluation by Nick Amanda. She attempted to withdraw from treatment so she was placed on a 302, on 303 as of 12/12/16. Chief Complaint "I think I'm crazy at times". Subjective Patient was seen & assessed interval progress reviewed with Treatment Team. Patient remains on MNPR up to this point and hasn't been attending groups or interacting with peers. She complained of some generalized muscle aches yesterday, 1 dose of prn Cogentin, seems improved today. She continues to appear guarded in interactions and had some evidence of withdrawal yesterday given refusal of Suboxone (now discontinued). She expressed to staff that she is taking medication "just to get out of here". She can't be more specific about what makes her uncomfortable around copatients--she doesn't recall making the statements about others being robots. Review of Systems Psych: denies symptoms other than stated above Constitutional: denied Cardiovascular: denied GI: denied Neurologic: denied Remainder of 10 body systems also reviewed and denied other than noted above. Sleep Information Total Hours of Sleep: 6.00 Meal Information Percent of Breakfast Consumed: 100 Percent of Lunch Consumed: 60 Percent of Dinner Consumed: 80 Mental Status Exam During interview pt is: alert and oriented, guarded Appearance: appropriately dressed, appeared stated age Eye contact is: poor Motor behavior is: psychomotor retardation Speech: other (minimal, quiet) Affect: flat, other (incongruent with stated mood) Mood is: other ("I could be fine at home") Thought process: blocking Thought content: paranoid (won't elaborate), other (paucity of thought content) Suicidal thought are: denied Homicidal thoughts are: denied Hallucinations: denies auditory, denies visual Cognition: language grossly intact Intelligence estimated to be: consistent with level of education Insight: limited Judgement: limited Impression Now here on a 303, is taking meds with encouragement. Risperdal was increased to 2 mg hs and recently had some mile dystonia. No active withdrawal at this time. Plan (1) Unspecified psychosis 12/05-The patient is admitted to [facility] ([facility]) on q 15 min checks (behavioral with suicide precautions) for safety. The patient will participate in group, recreational and milieu therapies and will be offered additional individual and family sessions as clinically appropriate. Trial Risperdal M Tab 0.5mg qid PRN anxiety/agitation. -Risperdal M Tab 0.5mg qHS scheduled this hs. Patient agreeable following discussion of indication and need to monitor for metabolic side effects and TD, low dose given low BMI. -FLP & FBG drawn this AM all within nml limits. Triglycerides = 77; Total cholesterol = 104; LDL = 50; HDL = 39. FBG = 85. A private room remains medically necessary for the safety of self and others as presents this am as paranoid and behaviors have been somewhat unpredictable. Milagros prn dystonia if needed patient has given variable reports of whether she was/was not admitted to [facility], will obtain records if available 12/06 -remains guarded and withdrawn. Due to paranoia and level of disorganization of thought process with remain in medically necessary private room and continue Risperdal M tab 12/07 - remains guarded and paranoid and private room remains medically necessary. Will encourage to take Risperdal M tab to address paranoia. 12/08--remains paranoid and suspicious, feeling that someone here may want to hurt her. Continue medically necessary private room. --She is unwilling to rescind her 72 hour notice, and is not yet stable for discharge, so we'll proceed with a 302 involuntary commitment. --Increase risperidone to 1 mg daily at bedtime. --Get collateral information from her boyfriend, and schedule a family meeting when she is less psychotic. 12/09 --Psychosis continues, and she refused her risperidone last night, but took it this morning with significant staff encouragement. --Continue to encourage the patient to participate in treatment, but she is very guarded and isolative. --She is now on a 302 involuntary commitment, and will likely require a 303 commitment. Should she continue to refuse antipsychotic medication, and believe she would benefit from medications over objection, as she is grossly psychotic and unable to participate in assessments her treatment due to disordered thinking and behavior. --Attempted to contact her boyfriend for collateral information, but his mailbox was full and unable to leave a message; will ask staff to speak with him and attempting to get more information when he visits. 12/10/16 --Although the patient denies perceptual disturbances and voices no systematized delusional material, there is evidence that she remains psychotic and she appears to have little to no insight.. Specifically, the patient tells me that she wants to know if there is "an ongoing investigation" about her, but then declines to say why she believes this may be true. We are continuing to attempt to reach the patient's boyfriend for collateral information. The picture is complicated by the patient's history of opioid dependence. She also appears to be minimizing her shins of her history. For example, she tells me that she was only "outpatient" at the [facility], denies any history of overdoses, and says that she only cut herself as a teenager in order to be allowed to change high school so that she could go the same high school as a friend who had been transferred to the other school because she, herself, had cut herself. We'll the patient appears to shown some improvement, I suspect that she is quite psychotic underneath and is at substantial risk for serious physical injury where she not to be provided active psychiatric treatment at the inpatient level of care. 12/11 - Continue Risperdal 2 mg. HS - Reality orientation 12/12--303 hearing completed/granted. (2) Opiate dependence LYNNE completed for [facility] on admission, attempting to verify dosing and plan; unable to participate in brief intervention, in structured D&A program 12/08--patient has refused Suboxone the past 2 days, and if she continues to refuse it, we can discontinue it. 12/09--patient continues to refuse Suboxone, stating it makes her feel unwell. I will discontinue it. 12/11 - Clonidine 0.5 mg. Q 4 h prn opiate withdrawal - Kaopectate for diarrhea prn - Ibuprofen 800 mg. TID prn myalgias (3) Underweight 12/09 --Rule out eating disorder once patient is less psychotic and better able to participate in the interview. --Continue to encourage good by mouth intake, both food and fluids, as she has been refusing multiple meals, and has been hypertensive and tachycardic at times. 12/12--monitor weights (4) Tachycardia 12/05 -EKG ordered to evaluate tachycardia--may have been related to anxiety due to psychosis or 1 mg dose of Risperdal night previously -VS ordered q shift to monitor for changes 12/10/16 - the patient's pulse rate remains periodically elevated. She tells us that she is somewhat anxious and is experiencing withdrawal from opioids and nicotine. 12/12--better this am, BP may preclude additional prn clonidine (5) Hypokalemia 12/05-potassium levels this AM = 4.3 -continue with usual I&O monitoring (6) Nicotine dependence 12/05--patient unable to participate in brief intervention at this time. nicotine patch 12/10/16 - today, the patient was able to discuss her use of the nicotine patch, but says that she wants to "get out of here so [she] can get a cigarette. Discharge / Aftercare Planning Primary Care Physician: Name: Ghazala at [facility] Psychiatrist: Name: [facility] Intake -Lala Cook Date of Appointment: Dec 22, 2016 Time of Appointment: 10:00am Appointment Notes: [address] [facility] Therapist: Name: Kayla @ [facility] Visit Code E&M Code: 78509 Inventory Assets Strengths: supportive boyfriend, motivation to see son Needs: lack of family support, child currently in foster care Risk Factors Assessment : Yes Health problems: No Mental Health Diagnoses: No Substance use disorders: Yes Previous attempt: Yes Smoker: Yes Protective Factors Assessment Druze beliefs: Yes Employed: No Stable relationships: Yes Supportive family: No Data Vital Signs Last 24 Hrs: Date Time Temp Pulse Resp B/P (MAP) Pulse Ox O2 Delivery O2 Flow Rate FiO2 12/12/16 06:44 36.5 101 16 112/62 112 96/58 12/11/16 22:00 128 147/76 12/11/16 15:00 96 16 107/74 Meds Administered Last 24 Hrs: Meds Administered (Past 24Hrs) Medications (Trade) Dose Ordered Sig/Audrey Route Start Time Stop Time Status Last Admin Dose Admin Risperidone (Risperdal M Tab) 2 mg HS PO 12/10/16 22:00 01/09/17 21:59 12/11/16 21:05 2 MG Diphenhydramine HCl (Benadryl Inj) 25 mg NOW ONCE IM 12/11/16 10:00 12/11/16 10:01 DC 12/11/16 10:38 25 MG Ibuprofen (Motrin Tab) 800 mg TID PRN PO 12/11/16 11:30 01/10/17 11:29 12/12/16 00:06 800 MG Clonidine HCl (Catapres Tab) 0.1 mg Q4H PRN PO 12/11/16 11:30 01/10/17 11:29 12/11/16 22:01 0.1 MG Problem Qualifiers (1) Opiate dependence: Substance use status: uncomplicated Qualified Codes: F11.20 - Opioid dependence, uncomplicated
[2016-12-12 13:58] VITALS: BP 107/73; PULSE 118; TEMP 37.1
[2016-12-12 15:20] VITALS: BP 107/73; PULSE 112; PULSE 118; TEMP 37.1
[2016-12-12] MEDS: RISPERIDONE ODT 1MG PO SCH (20:50)
[2016-12-12 22:19] VITALS: BP 119/81; PULSE 103
[2016-12-13 06:55] VITALS: BP 110/76; PULSE 108; TEMP 36.9
[2016-12-13] MEDS: NICOTINE 21 MG/24 HR TDSY TD SCH (09:11)
--- NOTE | 2016-12-13 15:07 | Psychiatric Progress Notes ---
Progress Note Date of Service Dec 13, 2016. Interval History Mariia Rand is a 26-year-old female who currently lives in [place] with her boyfriend. Mariia Rand was admitted on a 201 voluntary commitment. Patient is admitted from home. The patient was brought to the ED by her boyfriend after a recommendation for evaluation by [facility]. She attempted to withdraw from treatment so she was placed on a 302, on 303 as of 12/12/16. Chief Complaint "I'm just confused why I'm still here, I'm not THAT crazy". Subjective Patient was seen & assessed interval progress reviewed with Nursing. Nursing reports patient has been taking advantage of her PRN am dose of Risperdal and suggests it might be beneficial to schedule this dosing. Per report, patient remains isolated in room for the majority of the day. Patient was assessed with Arleth Hidalgo PA-C. Pt states she is "good" and that her mood has remained stable since her admission. She reports that she watched tv last evening in the day room and has been coming out of her room more often to engage in conversation with the other patients. She reports concerns about how much longer she will need to be here stating, "I'm not that crazy". Pt denies SI/HI, hallucinations, paranoia, or other symptoms of psychosis at time of evaluation. She states her "confusion" has remain about the same since admission. Pt denies continuation of muscle stiffness and pain since episode two days ago. She reports an area of pain with movement over her left lateral elbow but states this has been going for "a while". She still answers questions in simple phrases with minimal elaboration. Lacks ability to go into greater depth about current symptoms at this time. AIMS score = 0 Review of Systems Psych: denies symptoms other than stated above Constitutional: denied Cardiovascular: denied GI: denied Neurologic: denied Remainder of 10 body systems also reviewed and denied other than noted above. Sleep Information Total Hours of Sleep: 6.75 Meal Information Percent of Breakfast Consumed: 75 Percent of Lunch Consumed: 25 Percent of Dinner Consumed: 90 Mental Status Exam During interview pt is: alert and oriented, cooperative, guarded Appearance: appropriately dressed, appeared stated age Eye contact is: poor Motor behavior is: psychomotor retardation Speech: other (slow and minimal with speech, speaks quietly) Affect: flat, other (incongruent with stated mood) Mood is: other ("good"; incongruent with affect) Thought process: blocking Thought content: other (paucity of thought content) Suicidal thought are: denied Homicidal thoughts are: denied Hallucinations: denies auditory, denies visual Cognition: language grossly intact Intelligence estimated to be: consistent with level of education Insight: limited Judgement: limited Impression Pt now on a 303, is agreeable to taking scheduled medications. Risperdal was increased to 2 mg hs and has denied recent dystonia. No active withdrawal at this time. Plan (1) Unspecified psychosis 12/05-The patient is admitted to [facility] on q 15 min checks (behavioral with suicide precautions) for safety. The patient will participate in group, recreational and milieu therapies and will be offered additional individual and family sessions as clinically appropriate. Trial Risperdal M Tab 0.5mg qid PRN anxiety/agitation. -Risperdal M Tab 0.5mg qHS scheduled this hs. Patient agreeable following discussion of indication and need to monitor for metabolic side effects and TD, low dose given low BMI. -FLP & FBG drawn this AM all within nml limits. Triglycerides = 77; Total cholesterol = 104; LDL = 50; HDL = 39. FBG = 85. A private room remains medically necessary for the safety of self and others as presents this am as paranoid and behaviors have been somewhat unpredictable. Cogentin prn dystonia if needed patient has given variable reports of whether she was/was not admitted to [facility], will obtain records if available 12/06 -remains guarded and withdrawn. Due to paranoia and level of disorganization of thought process with remain in medically necessary private room and continue Risperdal M tab 12/07 - remains guarded and paranoid and private room remains medically necessary. Will encourage to take Risperdal M tab to address paranoia. 12/08--remains paranoid and suspicious, feeling that someone here may want to hurt her. Continue medically necessary private room. --She is unwilling to rescind her 72 hour notice, and is not yet stable for discharge, so we'll proceed with a 302 involuntary commitment. --Increase risperidone to 1 mg daily at bedtime. --Get collateral information from her boyfriend, and schedule a family meeting when she is less psychotic. 12/09 --Psychosis continues, and she refused her risperidone last night, but took it this morning with significant staff encouragement. --Continue to encourage the patient to participate in treatment, but she is very guarded and isolative. --She is now on a 302 involuntary commitment, and will likely require a 303 commitment. Should she continue to refuse antipsychotic medication, and believe she would benefit from medications over objection, as she is grossly psychotic and unable to participate in assessments her treatment due to disordered thinking and behavior. --Attempted to contact her boyfriend for collateral information, but his mailbox was full and unable to leave a message; will ask staff to speak with him and attempting to get more information when he visits. 12/10/16 --Although the patient denies perceptual disturbances and voices no systematized delusional material, there is evidence that she remains psychotic and she appears to have little to no insight.. Specifically, the patient tells me that she wants to know if there is "an ongoing investigation" about her, but then declines to say why she believes this may be true. We are continuing to attempt to reach the patient's boyfriend for collateral information. The picture is complicated by the patient's history of opioid dependence. She also appears to be minimizing her shins of her history. For example, she tells me that she was only "outpatient" at the [facility], denies any history of overdoses, and says that she only cut herself as a teenager in order to be allowed to change high school so that she could go the same high school as a friend who had been transferred to the other school because she, herself, had cut herself. We'll the patient appears to shown some improvement, I suspect that she is quite psychotic underneath and is at substantial risk for serious physical injury where she not to be provided active psychiatric treatment at the inpatient level of care. 12/11 - Continue Risperdal 2 mg. HS - Reality orientation 12/12--303 hearing completed/granted. 12/13 - Pt continues to display a flat affect. Although reporting mood as "good" her behaviors are incongruent with these statements. - Pt currently taking am PRN dose of 0.5mg Risperdal for the past two days, totalling 2.5mg. Suggest increasing total dosing to 3mg daily all given at bedtime to reduce risk of sedation that may come with increasing a dose in the morning. (2) Opiate dependence LYNNE completed for [facility] on admission, attempting to verify dosing and plan; unable to participate in brief intervention, in structured D&A program 12/08--patient has refused Suboxone the past 2 days, and if she continues to refuse it, we can discontinue it. 12/09--patient continues to refuse Suboxone, stating it makes her feel unwell. I will discontinue it. 12/11 - Clonidine 0.5 mg. Q 4 h prn opiate withdrawal - Kaopectate for diarrhea prn - Ibuprofen 800 mg. TID prn myalgias (3) Underweight 12/09 --Rule out eating disorder once patient is less psychotic and better able to participate in the interview. --Continue to encourage good by mouth intake, both food and fluids, as she has been refusing multiple meals, and has been hypertensive and tachycardic at times. 12/12--monitor weights (4) Tachycardia 12/05 -EKG ordered to evaluate tachycardia--may have been related to anxiety due to psychosis or 1 mg dose of Risperdal night previously -VS ordered q shift to monitor for changes 12/10/16 - the patient's pulse rate remains periodically elevated. She tells us that she is somewhat anxious and is experiencing withdrawal from opioids and nicotine. 12/12--better this am, BP may preclude additional prn clonidine (5) Hypokalemia 12/05-potassium levels this AM = 4.3 -continue with usual I&O monitoring (6) Nicotine dependence 12/05--patient unable to participate in brief intervention at this time. nicotine patch 12/10/16 - today, the patient was able to discuss her use of the nicotine patch, but says that she wants to "get out of here so [she] can get a cigarette. Discharge / Aftercare Planning Primary Care Physician: Name: Ghazala at [facility] Psychiatrist: Name: [facility] Intake -Lala Cook Date of Appointment: Dec 22, 2016 Time of Appointment: 10:00am Appointment Notes: [address] [place] [address] Therapist: Name: Kayla @ [facility] Visit Code E&M Code: 00703 Inventory Assets Strengths: supportive boyfriend, motivation to see son Needs: lack of family support, child currently in foster care Risk Factors Assessment : Yes Health problems: No Mental Health Diagnoses: No Substance use disorders: Yes Previous attempt: Yes Smoker: Yes Protective Factors Assessment Islam beliefs: Yes Employed: No Stable relationships: Yes Supportive family: No Data Vital Signs Last 24 Hrs: Date Time Temp Pulse Resp B/P (MAP) Pulse Ox O2 Delivery O2 Flow Rate FiO2 12/13/16 06:55 36.9 108 18 110/76 12/12/16 22:19 103 119/81 12/12/16 15:20 37.1 118 16 107/73 112 Problem Qualifiers (1) Opiate dependence: Substance use status: uncomplicated Qualified Codes: F11.20 - Opioid dependence, uncomplicated
[2016-12-13 15:08] VITALS: BP 95/64; PULSE 108
[2016-12-13] MEDS: RISPERIDONE ODT 0.5MG PO PRN (16:24)
[2016-12-13] MEDS: IBUPROFEN 800 MG TAB PO PRN (18:56)
[2016-12-13] MEDS: ACETAMINOPHEN 325 MG TAB PO PRN (19:23)
[2016-12-13 20:21] VITALS: BP 107/69; PULSE 92
[2016-12-13] MEDS ORDERED: RISPERIDONE ODT 1MG PO SCH (22:00)
[2016-12-13 22:19] VITALS: BP 107/69; PULSE 92
[2016-12-14] MEDS: ACETAMINOPHEN 325 MG TAB PO PRN ×3 (06:45→18:39)
[2016-12-14 06:51] VITALS: BP_SYST 95; BP_SYST 97; BP_DIAS 68; BP_DIAS 72; PULSE 139; PULSE 141; TEMP 36.7
--- NOTE | 2016-12-14 08:59 | Psychiatric Progress Notes ---
Progress Note Date of Service Dec 14, 2016. Interval History Mariia Rand is a 26-year-old female who currently lives in [place] with her boyfriend. Mariia aRnd was admitted on a 201 voluntary commitment. Patient is admitted from home. The patient was brought to the ED by her boyfriend after a recommendation for evaluation by [facility]. She attempted to withdraw from treatment so she was placed on a 302, on 303 as of 12/12/16. Chief Complaint "I'm alright". Subjective Patient was seen & assessed interval progress reviewed with Nursing Patient was isolative on 12/13/16 She approached the nursing station in the afternoon asking for prn risperdal 0.5mg due to feeling anxious. She appeared flat and withdrawn, and at times thought blocked. One mention of appearing paranoid at one time earlier in the day. She seems guarded and vague with staff. She ate minimal dinner and had minimal time in dayroom with peers. On 12/13/16 she received a total of 3.5mg of risperdal. She approached the staff doctor of podiatry not feeling well with DOTY and HR of 139. Family meeting scheduled for tomorrow with her BF at 1400. Patient was laying in darkened room supine with her head propped up around her neck with eyes opened. She is alert and responds verbally in a flat tone, and vacant expression consistent with yesterday. SHe states she just took her shower. SHe agrees that she does not feel well today, but cannot state any specific physical symptoms, she denies feeling lightheaded, denies f/c/s, denies nausea, continues to c/o elbow pain c/w yesterday but denies stiffness today. She denies AVH, and denies paranoia and does not reveal any delusions but continues to have paucity of thought and only answers questions in 1-3 word phrases concretely. Discussed her tachycardia on the risperdal. WHen reviewing SE she also endorses constipation that was prior to arrival but worse here with a hard small BM yesterday. SHe states she is drinking water. She is agreeable to a change to abilify and we discussed the r/b/se/a of it with need for montioring sleep, weight, blood sugar, lipids, and for akathisia all disucssed in layman's terms. Review of Systems She denies symptoms constitutionally, psychiatrically, neurologically other than stated above. Sleep Information Total Hours of Sleep: 7.75 Meal Information Percent of Breakfast Consumed: 75 Percent of Lunch Consumed: 25 Percent of Dinner Consumed: 25 Mental Status Exam During interview pt is: alert and oriented, cooperative, guarded Appearance: appropriately dressed, appeared stated age Eye contact is: poor Motor behavior is: psychomotor retardation Speech: other (slow and minimal with speech, speaks quietly) Affect: flat, other (incongruent with stated mood) Mood is: other ("fine"; incongruent with affect) Thought process: blocking Thought content: other (paucity of thought content) Suicidal thought are: denied Homicidal thoughts are: denied Hallucinations: denies auditory, denies visual Cognition: language grossly intact Intelligence estimated to be: consistent with level of education Insight: limited Judgement: limited Impression Pt now on a 303, is agreeable to taking scheduled medications. Risperdal was increased to 2 mg hs and has denied recent dystonia. No active withdrawal at this time. Plan (1) Unspecified psychosis 12/05-The patient is admitted to [facility] ([facility] mental health unit) on q 15 min checks (behavioral with suicide precautions) for safety. The patient will participate in group, recreational and milieu therapies and will be offered additional individual and family sessions as clinically appropriate. Trial Risperdal M Tab 0.5mg qid PRN anxiety/agitation. -Risperdal M Tab 0.5mg qHS scheduled this hs. Patient agreeable following discussion of indication and need to monitor for metabolic side effects and TD, low dose given low BMI. -FLP & FBG drawn this AM all within nml limits. Triglycerides = 77; Total cholesterol = 104; LDL = 50; HDL = 39. FBG = 85. A private room remains medically necessary for the safety of self and others as presents this am as paranoid and behaviors have been somewhat unpredictable. Cogentin prn dystonia if needed patient has given variable reports of whether she was/was not admitted to [facility], will obtain records if available 12/06 -remains guarded and withdrawn. Due to paranoia and level of disorganization of thought process with remain in medically necessary private room and continue Risperdal M tab 12/07 - remains guarded and paranoid and private room remains medically necessary. Will encourage to take Risperdal M tab to address paranoia. 12/08--remains paranoid and suspicious, feeling that someone here may want to hurt her. Continue medically necessary private room. --She is unwilling to rescind her 72 hour notice, and is not yet stable for discharge, so we'll proceed with a 302 involuntary commitment. --Increase risperidone to 1 mg daily at bedtime. --Get collateral information from her boyfriend, and schedule a family meeting when she is less psychotic. 12/09 --Psychosis continues, and she refused her risperidone last night, but took it this morning with significant staff encouragement. --Continue to encourage the patient to participate in treatment, but she is very guarded and isolative. --She is now on a 302 involuntary commitment, and will likely require a 303 commitment. Should she continue to refuse antipsychotic medication, and believe she would benefit from medications over objection, as she is grossly psychotic and unable to participate in assessments her treatment due to disordered thinking and behavior. --Attempted to contact her boyfriend for collateral information, but his mailbox was full and unable to leave a message; will ask staff to speak with him and attempting to get more information when he visits. 12/10/16 --Although the patient denies perceptual disturbances and voices no systematized delusional material, there is evidence that she remains psychotic and she appears to have little to no insight.. Specifically, the patient tells me that she wants to know if there is "an ongoing investigation" about her, but then declines to say why she believes this may be true. We are continuing to attempt to reach the patient's boyfriend for collateral information. The picture is complicated by the patient's history of opioid dependence. She also appears to be minimizing her shins of her history. For example, she tells me that she was only "outpatient" at the [facility], denies any history of overdoses, and says that she only cut herself as a teenager in order to be allowed to change high school so that she could go the same high school as a friend who had been transferred to the other school because she, herself, had cut herself. We'll the patient appears to shown some improvement, I suspect that she is quite psychotic underneath and is at substantial risk for serious physical injury where she not to be provided active psychiatric treatment at the inpatient level of care. 12/11 - Continue Risperdal 2 mg. HS - Reality orientation 12/12--303 hearing completed/granted. 12/13 - Pt continues to display a flat affect. Although reporting mood as "good" her behaviors are incongruent with these statements. - Pt currently taking am PRN dose of 0.5mg Risperdal for the past two days, totalling 2.5mg. Suggest increasing total dosing to 3mg daily all given at bedtime to reduce risk of sedation that may come with increasing a dose in the morning. 12/14/16 - on review of record patient has had tachycardia since admission worsening today back to unacceptable levels despite maintaining hydration, no other s/sx of NMS or EPS/Dystonia at this time. Risperdal can be associated with tachycardia and she is not having a robust response to date despite several days at 2.5mg and significant elevated HR today in the high 130's/140's at rest. Will taper over 3days and simultaneously start abilify 5mg today and 10mg qday there after with 5mg po bid prn psychosis. r/b/se/a discussed with patient (see today's subjective note) 12/05/16 last metabolic tests reviewed. (2) Opiate dependence LYNNE completed for [facility] on admission, attempting to verify dosing and plan; unable to participate in brief intervention, in structured D&A program 12/08--patient has refused Suboxone the past 2 days, and if she continues to refuse it, we can discontinue it. 12/09--patient continues to refuse Suboxone, stating it makes her feel unwell. I will discontinue it. 12/11 - Clonidine 0.5 mg. Q 4 h prn opiate withdrawal - Kaopectate for diarrhea prn - Ibuprofen 800 mg. TID prn myalgias (3) Underweight 12/09 --Rule out eating disorder once patient is less psychotic and better able to participate in the interview. --Continue to encourage good by mouth intake, both food and fluids, as she has been refusing multiple meals, and has been hypertensive and tachycardic at times. 12/12--monitor weights (4) Tachycardia 12/05 -EKG ordered to evaluate tachycardia--may have been related to anxiety due to psychosis or 1 mg dose of Risperdal night previously -VS ordered q shift to monitor for changes 12/10/16 - the patient's pulse rate remains periodically elevated. She tells us that she is somewhat anxious and is experiencing withdrawal from opioids and nicotine. 12/12--better this am, BP may preclude additional prn clonidine 12/14/16 - tachycardia worsening as we increase dose of risperdal, will taper risperdal and monitor. (5) Hypokalemia 12/05-potassium levels this AM = 4.3 -continue with usual I&O monitoring (6) Nicotine dependence 12/05--patient unable to participate in brief intervention at this time. nicotine patch 12/10/16 - today, the patient was able to discuss her use of the nicotine patch, but says that she wants to "get out of here so [she] can get a cigarette. Discharge / Aftercare Planning Primary Care Physician: Name: Ghazala at [facility] Psychiatrist: Name: [facility] -Lala Cook Date of Appointment: Dec 22, 2016 Time of Appointment: 10:00am Appointment Notes: [address] [place] [address] Therapist: Name: Kayla @ [facility] Visit Code E&M Code: 70330 Inventory Assets Strengths: supportive boyfriend, motivation to see son Needs: lack of family support, child currently in foster care Risk Factors Assessment : Yes Health problems: No Mental Health Diagnoses: No Substance use disorders: Yes Previous attempt: Yes Smoker: Yes Protective Factors Assessment Faith beliefs: Yes Employed: No Stable relationships: Yes Supportive family: No Data Vital Signs Last 24 Hrs: Date Time Temp Pulse Resp B/P (MAP) Pulse Ox O2 Delivery O2 Flow Rate FiO2 12/14/16 06:51 36.7 139 18 97/68 141 95/72 12/13/16 22:19 92 16 107/69 12/13/16 20:21 92 107/69 12/13/16 15:08 108 95/64 Meds Administered Last 24 Hrs: Current Inpatient Medications Medications (Trade) Dose Ordered Sig/Audrey Route Start Time Stop Time Status Last Admin Dose Admin Acetaminophen (Tylenol Tab) 650 mg Q4H PRN PO 12/04/16 21:00 01/03/17 20:59 12/14/16 06:45 650 MG Bismuth Subsalicylate (Kaopectate Liqd) 15 ml PRN PRN PO 12/04/16 21:00 01/03/17 20:59 Al Hydroxide/Mg Hydroxide (Maalox Susp) 30 ml Q4H PRN PO 12/04/16 21:00 01/03/17 20:59 Magnesium Hydroxide (Milk Of Magnesia Susp) 30 ml DAILY PRN PO 12/04/16 21:00 01/03/17 20:59 Sodium Chloride (Glasco Nasal Farner) PRN PRN NA 12/04/16 21:00 01/03/17 20:59 Hydroxyzine HCl (Vistaril Tab) 50 mg HSZ PRN PO 12/04/16 21:00 01/03/17 20:59 12/12/16 00:06 50 MG Hydroxyzine HCl (Vistaril Tab) 25 mg Q4H PRN PO 12/04/16 21:00 01/03/17 20:59 Risperidone (Risperdal M Tab) 0.5 mg QID PRN PO 12/05/16 12:00 01/04/17 11:59 12/13/16 16:24 0.5 MG Benztropine Mesylate (Cogentin Tab) 0.5 mg Q8 PRN PO 12/05/16 11:00 01/04/17 10:59 12/11/16 09:10 0.5 MG Nicotine (Nicoderm Cq 21MG Patch) 1 patch QAM TD 12/06/16 09:00 01/05/17 08:59 12/13/16 09:11 1 PATCH Nicotine Polacrilex (Nicorette 2MG Gum) 1 piece Q2H PRN MT 12/05/16 16:45 01/04/17 16:44 Miscellaneous (Remove Nicoderm Patch) 1 ea HS N/A 12/06/16 22:00 01/05/17 21:59 12/08/16 21:20 1 EA Ibuprofen (Motrin Tab) 800 mg TID PRN PO 12/11/16 11:30 01/10/17 11:29 12/13/16 18:56 800 MG Clonidine HCl (Catapres Tab) 0.1 mg Q4H PRN PO 12/11/16 11:30 01/10/17 11:29 12/11/16 22:01 0.1 MG Risperidone (Risperdal M Tab) 3 mg HS PO 12/13/16 22:00 01/09/17 21:59 12/13/16 21:06 3 MG Problem Qualifiers (1) Opiate dependence: Substance use status: uncomplicated Qualified Codes: F11.20 - Opioid dependence, uncomplicated
[2016-12-14] MEDS ORDERED: RISPERIDONE ODT 0.5MG PO PRN (09:15)
[2016-12-14] MEDS: NICOTINE 21 MG/24 HR TDSY TD SCH (09:39)
[2016-12-14] MEDS ORDERED: ARIPIprazole TAB 5 MG TAB PO ONE (10:45)
[2016-12-14] MEDS: MAGNESIUM HYDROXIDE SUSP 30 ML UDC PO PRN (13:23)
[2016-12-14 14:05] VITALS: BP 98/66; PULSE 92
[2016-12-14 15:32] VITALS: BP 115/74; PULSE 93; TEMP 36.9
[2016-12-14] MEDS: CLONIDINE HCL 0.1 MG TAB PO PRN (15:32)
[2016-12-14] MEDS: BENZTROPINE MESYLATE 0.5 MG TAB PO PRN (16:03)
[2016-12-14] MEDS: RISPERIDONE 1 MG TAB PO SCH (21:11)
[2016-12-14] MEDS ORDERED: RISPERIDONE ODT 1MG PO SCH (22:00)
[2016-12-14 22:07] VITALS: BP 93/58; PULSE 76
[2016-12-15 06:57] VITALS: BP_SYST 111; BP_SYST 99; BP_DIAS 66; BP_DIAS 73; PULSE 93; PULSE 99; TEMP 36.7
[2016-12-15] MEDS: ACETAMINOPHEN 325 MG TAB PO PRN (06:57)
[2016-12-15] MEDS: BENZTROPINE MESYLATE 0.5 MG TAB PO PRN (07:44)
[2016-12-15] MEDS: ARIPIprazole TAB 5 MG TAB PO SCH (07:44)
[2016-12-15] MEDS: NICOTINE 21 MG/24 HR TDSY TD SCH (07:46)
--- NOTE | 2016-12-15 11:39 | Psychiatric Progress Notes ---
Progress Note Date of Service Dec 15, 2016. Interval History Mariia Rand is a 26-year-old female who currently lives in [place] with her boyfriend. Mariia Rand was admitted on a 201 voluntary commitment. Patient is admitted from home. The patient was brought to the ED by her boyfriend after a recommendation for evaluation by Nick Amanda. She attempted to withdraw from treatment so she was placed on a 302, on 303 as of 12/12/16. Chief Complaint "I'm okay, but I don't feel good." Subjective Patient was seen & assessed interval progress reviewed with Treatment Team. Patient is poorly engaged in treatment and continues to have somatic complaints. Today she complains of her legs feeling restless however she denies any feelings of internal restlessness or feeling like she needs to move constantly. She also reports aching all over. She reports that her mood is "good" however her affect does not match she is quite flat and blunted. She does become more engaged in conversation when discussing her outpatient Suboxone treatment. She denies suicidal or homicidal ideation. She reluctantly says that she does not attend groups because she feels like no one likes her here. She denies any palpitations and does not feel like she is having any side effects from the Abilify and is willing to continue with this medication. When I went back to talk to her about Suboxone she was standing in the patient lounge eating crackers. She made better eye contact during this conversation than she did earlier during the interview in her room. Review of Systems Psych: denies symptoms other than stated above Constitutional: denied Cardiovascular: denied GI: had a BM today Neurologic: legs restlessness Sleep Information Total Hours of Sleep: 7.50 Meal Information Percent of Breakfast Consumed: 100 Percent of Lunch Consumed: 75 Percent of Dinner Consumed: 75 Mental Status Exam During interview pt is: alert and oriented, cooperative, guarded Appearance: appropriately dressed, appeared stated age Eye contact is: poor Motor behavior is: no abnormal motor movements Speech: other (slow and minimal with speech, speaks quietly) Affect: flat, other (incongruent with stated mood) Mood is: other ("good"; incongruent with affect) Thought process: blocking Thought content: other (paucity of thought content) Suicidal thought are: denied Homicidal thoughts are: denied Hallucinations: denies auditory, denies visual Cognition: language grossly intact Intelligence estimated to be: consistent with level of education Insight: limited Judgement: limited Impression Pt now on a 303, is agreeable to taking scheduled medications. Patient tachycardiac on risperdal and so cross taper to Abilify started on 12/14 Plan (1) Unspecified psychosis 12/05-The patient is admitted to [facility] ([facility]) on q 15 min checks (behavioral with suicide precautions) for safety. The patient will participate in group, recreational and milieu therapies and will be offered additional individual and family sessions as clinically appropriate. Trial Risperdal M Tab 0.5mg qid PRN anxiety/agitation. -Risperdal M Tab 0.5mg qHS scheduled this hs. Patient agreeable following discussion of indication and need to monitor for metabolic side effects and TD, low dose given low BMI. -FLP & FBG drawn this AM all within nml limits. Triglycerides = 77; Total cholesterol = 104; LDL = 50; HDL = 39. FBG = 85. A private room remains medically necessary for the safety of self and others as presents this am as paranoid and behaviors have been somewhat unpredictable. Cogentin prn dystonia if needed patient has given variable reports of whether she was/was not admitted to [facility], will obtain records if available 12/06 -remains guarded and withdrawn. Due to paranoia and level of disorganization of thought process with remain in medically necessary private room and continue Risperdal M tab 12/07 - remains guarded and paranoid and private room remains medically necessary. Will encourage to take Risperdal M tab to address paranoia. 12/08--remains paranoid and suspicious, feeling that someone here may want to hurt her. Continue medically necessary private room. --She is unwilling to rescind her 72 hour notice, and is not yet stable for discharge, so we'll proceed with a 302 involuntary commitment. --Increase risperidone to 1 mg daily at bedtime. --Get collateral information from her boyfriend, and schedule a family meeting when she is less psychotic. 12/09 --Psychosis continues, and she refused her risperidone last night, but took it this morning with significant staff encouragement. --Continue to encourage the patient to participate in treatment, but she is very guarded and isolative. --She is now on a 302 involuntary commitment, and will likely require a 303 commitment. Should she continue to refuse antipsychotic medication, and believe she would benefit from medications over objection, as she is grossly psychotic and unable to participate in assessments her treatment due to disordered thinking and behavior. --Attempted to contact her boyfriend for collateral information, but his mailbox was full and unable to leave a message; will ask staff to speak with him and attempting to get more information when he visits. 12/10/16 --Although the patient denies perceptual disturbances and voices no systematized delusional material, there is evidence that she remains psychotic and she appears to have little to no insight.. Specifically, the patient tells me that she wants to know if there is "an ongoing investigation" about her, but then declines to say why she believes this may be true. We are continuing to attempt to reach the patient's boyfriend for collateral information. The picture is complicated by the patient's history of opioid dependence. She also appears to be minimizing her shins of her history. For example, she tells me that she was only "outpatient" at the [facility], denies any history of overdoses, and says that she only cut herself as a teenager in order to be allowed to change high school so that she could go the same high school as a friend who had been transferred to the other school because she, herself, had cut herself. We'll the patient appears to shown some improvement, I suspect that she is quite psychotic underneath and is at substantial risk for serious physical injury where she not to be provided active psychiatric treatment at the inpatient level of care. 12/11 - Continue Risperdal 2 mg. HS - Reality orientation 12/12--303 hearing completed/granted. 12/13 - Pt continues to display a flat affect. Although reporting mood as "good" her behaviors are incongruent with these statements. - Pt currently taking am PRN dose of 0.5mg Risperdal for the past two days, totalling 2.5mg. Suggest increasing total dosing to 3mg daily all given at bedtime to reduce risk of sedation that may come with increasing a dose in the morning. 12/14/16 - on review of record patient has had tachycardia since admission worsening today back to unacceptable levels despite maintaining hydration, no other s/sx of NMS or EPS/Dystonia at this time. Risperdal can be associated with tachycardia and she is not having a robust response to date despite several days at 2.5mg and significant elevated HR today in the high 130's/140's at rest. Will taper over 3days and simultaneously start abilify 5mg today and 10mg qday there after with 5mg po bid prn psychosis. r/b/se/a discussed with patient (see today's subjective note) 12/05/16 last metabolic tests reviewed. 12/15 - Patient received Abilify 10 mg this am. Tachycardia is resolving (2) Opiate dependence LYNNE completed for [facility] on admission, attempting to verify dosing and plan; unable to participate in brief intervention, in structured D&A program 12/08--patient has refused Suboxone the past 2 days, and if she continues to refuse it, we can discontinue it. 12/09--patient continues to refuse Suboxone, stating it makes her feel unwell. I will discontinue it. 12/11 - Clonidine 0.5 mg. Q 4 h prn opiate withdrawal - Kaopectate for diarrhea prn - Ibuprofen 800 mg. TID prn myalgias 12/15 -Patient requesting suboxone and complains of not feeling well. Outpatient dose had been verified with Dr. Lucia's office at time of admission by Carmine Saunders RN. Her outpatient dose was 8m g/2 mg 1.5 tabs once daily. Patient has not taken it for a week due to refusing it stating he made her feel sick and so it was discontinued. She starting asking for it yesterday. Patient understands that we will not be able to prescribe on discharge and agrees to restart at 8 mg /2 mg. She intended to continue Suboxone treatment when she is discharged. (3) Underweight 12/09 --Rule out eating disorder once patient is less psychotic and better able to participate in the interview. --Continue to encourage good by mouth intake, both food and fluids, as she has been refusing multiple meals, and has been hypertensive and tachycardic at times. 12/12--monitor weights (4) Tachycardia 12/05 -EKG ordered to evaluate tachycardia--may have been related to anxiety due to psychosis or 1 mg dose of Risperdal night previously -VS ordered q shift to monitor for changes 12/10/16 - the patient's pulse rate remains periodically elevated. She tells us that she is somewhat anxious and is experiencing withdrawal from opioids and nicotine. 12/12--better this am, BP may preclude additional prn clonidine 12/14/16 - tachycardia worsening as we increase dose of risperdal, will taper risperdal and monitor. (5) Hypokalemia 12/05-potassium levels this AM = 4.3 -continue with usual I&O monitoring (6) Nicotine dependence 12/05--patient unable to participate in brief intervention at this time. nicotine patch 12/10/16 - today, the patient was able to discuss her use of the nicotine patch, but says that she wants to "get out of here so [she] can get a cigarette. Discharge / Aftercare Planning Primary Care Physician: Name: Ghazala lui [facility] Psychiatrist: Name: [facility] Intake -Lala Cook Date of Appointment: Dec 22, 2016 Time of Appointment: 10:00am Appointment Notes: [address] [place] [address] Therapist: Name: Kayla @ [facility] Visit Code E&M Code: 99261 Inventory Assets Strengths: supportive boyfriend, motivation to see son Needs: lack of family support, child currently in foster care Risk Factors Assessment : Yes Health problems: No Mental Health Diagnoses: No Substance use disorders: Yes Previous attempt: Yes Smoker: Yes Protective Factors Assessment Holiness beliefs: Yes Employed: No Stable relationships: Yes Supportive family: No Data Vital Signs Last 24 Hrs: Date Time Temp Pulse Resp B/P (MAP) Pulse Ox O2 Delivery O2 Flow Rate FiO2 12/15/16 06:57 36.7 93 16 111/73 99 99/66 12/14/16 22:07 76 93/58 12/14/16 15:32 36.9 93 18 115/74 12/14/16 14:05 92 98/66 Meds Administered Last 24 Hrs: Current Inpatient Medications Medications (Trade) Dose Ordered Sig/Audrey Route Start Time Stop Time Status Last Admin Dose Admin Acetaminophen (Tylenol Tab) 650 mg Q4H PRN PO 12/04/16 21:00 01/03/17 20:59 12/15/16 06:57 650 MG Bismuth Subsalicylate (Kaopectate Liqd) 15 ml PRN PRN PO 12/04/16 21:00 01/03/17 20:59 Al Hydroxide/Mg Hydroxide (Maalox Susp) 30 ml Q4H PRN PO 12/04/16 21:00 01/03/17 20:59 12/14/16 12:24 30 ML Magnesium Hydroxide (Milk Of Magnesia Susp) 30 ml DAILY PRN PO 12/04/16 21:00 01/03/17 20:59 12/14/16 13:23 30 ML Sodium Chloride ([place]) PRN PRN NA 12/04/16 21:00 01/03/17 20:59 Hydroxyzine HCl (Vistaril Tab) 50 mg HSZ PRN PO 12/04/16 21:00 01/03/17 20:59 12/12/16 00:06 50 MG Hydroxyzine HCl (Vistaril Tab) 25 mg Q4H PRN PO 12/04/16 21:00 01/03/17 20:59 Benztropine Mesylate (Cogentin Tab) 0.5 mg Q8 PRN PO 12/05/16 11:00 01/04/17 10:59 12/15/16 07:44 0.5 MG Nicotine (Nicoderm Cq 21MG Patch) 1 patch QAM TD 12/06/16 09:00 01/05/17 08:59 12/15/16 07:46 1 PATCH Nicotine Polacrilex (Nicorette 2MG Gum) 1 piece Q2H PRN MT 12/05/16 16:45 01/04/17 16:44 Miscellaneous (Remove Nicoderm Patch) 1 ea HS N/A 12/06/16 22:00 01/05/17 21:59 12/08/16 21:20 1 EA Ibuprofen (Motrin Tab) 800 mg TID PRN PO 12/11/16 11:30 01/10/17 11:29 12/13/16 18:56 800 MG Clonidine HCl (Catapres Tab) 0.1 mg Q4H PRN PO 12/11/16 11:30 01/10/17 11:29 12/14/16 15:32 0.1 MG Risperidone (Risperdal Tab) 2 mg Taper HS PO 12/14/16 22:00 12/17/16 21:59 12/14/16 21:11 2 MG Aripiprazole (Abilify Tab) 10 mg QAM PO 12/15/16 09:00 01/14/17 08:59 12/15/16 07:44 10 MG Aripiprazole (Abilify Tab) 5 mg BID PRN PO 12/14/16 10:15 01/13/17 10:14 Problem Qualifiers (1) Opiate dependence: Substance use status: uncomplicated Qualified Codes: F11.20 - Opioid dependence, uncomplicated
[2016-12-15] MEDS ORDERED: BUPRENORPHINE/NALOXONE 8/2 MG TAB SL ONE (11:44)
[2016-12-15 14:48] VITALS: BP 105/71; PULSE 88; TEMP 36.6
[2016-12-15] MEDS: NICOTINE POLACRILEX 2 MG GUM MT PRN (19:47)
[2016-12-15] MEDS: RISPERIDONE 1 MG TAB PO SCH (21:45)
[2016-12-15 22:10] VITALS: BP 108/74; PULSE 86
[2016-12-16 06:49] VITALS: BP_SYST 103; BP_SYST 94; BP_DIAS 61; BP_DIAS 69; PULSE 84; PULSE 97; TEMP 36.4
[2016-12-16] MEDS: BUPRENORPHINE/NALOXONE 8/2 MG TAB SL SCH (09:59)
[2016-12-16] MEDS: NICOTINE 21 MG/24 HR TDSY TD SCH (09:59)
[2016-12-16] MEDS: ARIPIprazole TAB 5 MG TAB PO SCH (09:59)
--- NOTE | 2016-12-16 10:02 | Psychiatric Progress Notes ---
Progress Note Date of Service Dec 16, 2016. Interval History Mariia Rand is a 26-year-old female who currently lives in [place] with her boyfriend. Mariia Rand was admitted on a 201 voluntary commitment. Patient is admitted from home. The patient was brought to the ED by her boyfriend after a recommendation for evaluation by Nick Amanda. She attempted to withdraw from treatment so she was placed on a 302, on 303 as of 12/12/16. Chief Complaint "I don't have a lot of anxiety since I'm taking the Suboxone again.". Subjective Patient was seen & assessed interval progress reviewed with nursing. Patient spent most of the day shift yesterday withdrawn to her bed. In the evening she did attend self-awareness group and was more engaged and interactive. She told staff that she felt like her mood was a 6 out of 10 and that she was feeling motivated to do what she needed to do to take care of herself. Today she describes her mood as okay. She reports that her anxiety has decreased since she has been taking Suboxone. She denies any restlessness in her legs or anywhere else. Patient reports that she has an appointment on Wednesdays with her therapist Kayla at [facility] in [place]. She has a meeting with her boyfriend scheduled today at 2:30 as there was a miscommunication about the time of yesterday's meeting. Patient reports that Amy X she is required to do parenting classes and go to therapy. She did attend 1 group today and plans to attend others. She seems more motivated to engage in treatment. She denies any thoughts of suicide or thoughts of harming others. She is eating better and says that when she is anxious she can eat anything. She reports sleeping well last night. Review of Systems denies any GI symptoms, denies restless legs Sleep Information Total Hours of Sleep: 6.00 Meal Information Percent of Breakfast Consumed: 100 Percent of Lunch Consumed: 0 Percent of Dinner Consumed: 95 Mental Status Exam During interview pt is: alert and oriented, cooperative, guarded Appearance: appropriately dressed, appeared stated age Eye contact is: poor Motor behavior is: no abnormal motor movements Speech: normal in rate, rhythm & volume Affect: flat, other (incongruent with stated mood) Mood is: other (okay) Thought process: goal directed, linear, logical Thought content: other (paucity of thought content although improving.) Suicidal thought are: denied Homicidal thoughts are: denied Hallucinations: denies auditory, denies visual Cognition: language grossly intact Intelligence estimated to be: consistent with level of education Insight: limited Judgement: limited Impression Pt now on a 303, is agreeable to taking scheduled medications. Patient tachycardiac on risperdal and so cross taper to Abilify started on 12/14 Plan (1) Unspecified psychosis 12/05-The patient is admitted to [facility] ([facility]) on q 15 min checks (behavioral with suicide precautions) for safety. The patient will participate in group, recreational and milieu therapies and will be offered additional individual and family sessions as clinically appropriate. Trial Risperdal M Tab 0.5mg qid PRN anxiety/agitation. -Risperdal M Tab 0.5mg qHS scheduled this hs. Patient agreeable following discussion of indication and need to monitor for metabolic side effects and TD, low dose given low BMI. -FLP & FBG drawn this AM all within nml limits. Triglycerides = 77; Total cholesterol = 104; LDL = 50; HDL = 39. FBG = 85. A private room remains medically necessary for the safety of self and others as presents this am as paranoid and behaviors have been somewhat unpredictable. Cogentin prn dystonia if needed patient has given variable reports of whether she was/was not admitted to [facility], will obtain records if available 12/06 -remains guarded and withdrawn. Due to paranoia and level of disorganization of thought process with remain in medically necessary private room and continue Risperdal M tab 12/07 - remains guarded and paranoid and private room remains medically necessary. Will encourage to take Risperdal M tab to address paranoia. 12/08--remains paranoid and suspicious, feeling that someone here may want to hurt her. Continue medically necessary private room. --She is unwilling to rescind her 72 hour notice, and is not yet stable for discharge, so we'll proceed with a 302 involuntary commitment. --Increase risperidone to 1 mg daily at bedtime. --Get collateral information from her boyfriend, and schedule a family meeting when she is less psychotic. 12/09 --Psychosis continues, and she refused her risperidone last night, but took it this morning with significant staff encouragement. --Continue to encourage the patient to participate in treatment, but she is very guarded and isolative. --She is now on a 302 involuntary commitment, and will likely require a 303 commitment. Should she continue to refuse antipsychotic medication, and believe she would benefit from medications over objection, as she is grossly psychotic and unable to participate in assessments her treatment due to disordered thinking and behavior. --Attempted to contact her boyfriend for collateral information, but his mailbox was full and unable to leave a message; will ask staff to speak with him and attempting to get more information when he visits. 12/10/16 --Although the patient denies perceptual disturbances and voices no systematized delusional material, there is evidence that she remains psychotic and she appears to have little to no insight.. Specifically, the patient tells me that she wants to know if there is "an ongoing investigation" about her, but then declines to say why she believes this may be true. We are continuing to attempt to reach the patient's boyfriend for collateral information. The picture is complicated by the patient's history of opioid dependence. She also appears to be minimizing her shins of her history. For example, she tells me that she was only "outpatient" at the [facility], denies any history of overdoses, and says that she only cut herself as a teenager in order to be allowed to change high school so that she could go the same high school as a friend who had been transferred to the other school because she, herself, had cut herself. We'll the patient appears to shown some improvement, I suspect that she is quite psychotic underneath and is at substantial risk for serious physical injury where she not to be provided active psychiatric treatment at the inpatient level of care. 12/11 - Continue Risperdal 2 mg. HS - Reality orientation 12/12--303 hearing completed/granted. 12/13 - Pt continues to display a flat affect. Although reporting mood as "good" her behaviors are incongruent with these statements. - Pt currently taking am PRN dose of 0.5mg Risperdal for the past two days, totalling 2.5mg. Suggest increasing total dosing to 3mg daily all given at bedtime to reduce risk of sedation that may come with increasing a dose in the morning. 12/14/16 - on review of record patient has had tachycardia since admission worsening today back to unacceptable levels despite maintaining hydration, no other s/sx of NMS or EPS/Dystonia at this time. Risperdal can be associated with tachycardia and she is not having a robust response to date despite several days at 2.5mg and significant elevated HR today in the high 130's/140's at rest. Will taper over 3days and simultaneously start abilify 5mg today and 10mg qday there after with 5mg po bid prn psychosis. r/b/se/a discussed with patient (see today's subjective note) 12/05/16 last metabolic tests reviewed. 12/15 - Patient received Abilify 10 mg this am. Tachycardia is resolving 12/16 -Continue Abilify -Patient has an appointment with her therapist, Kayla, at [facility] in [place] every Thursday. She will need to sign a release for [facility] if this has not been done already. And this appointment will need to be canceled for tomorrow. - Family meeting with boyfriend today. (2) Opiate dependence LYNNE completed for [facility] on admission, attempting to verify dosing and plan; unable to participate in brief intervention, in structured D&A program 12/08--patient has refused Suboxone the past 2 days, and if she continues to refuse it, we can discontinue it. 12/09--patient continues to refuse Suboxone, stating it makes her feel unwell. I will discontinue it. 12/11 - Clonidine 0.5 mg. Q 4 h prn opiate withdrawal - Kaopectate for diarrhea prn - Ibuprofen 800 mg. TID prn myalgias 12/15 -Patient requesting suboxone and complains of not feeling well. Outpatient dose had been verified with Dr. Lucia's office at time of admission by Carmine Saunders RN. Her outpatient dose was 8m g/2 mg 1.5 tabs once daily. Patient has not taken it for a week due to refusing it stating he made her feel sick and so it was discontinued. She starting asking for it yesterday. Patient understands that we will not be able to prescribe on discharge and agrees to restart at 8 mg /2 mg. She intended to continue Suboxone treatment when she is discharged. (3) Underweight 12/09 --Rule out eating disorder once patient is less psychotic and better able to participate in the interview. --Continue to encourage good by mouth intake, both food and fluids, as she has been refusing multiple meals, and has been hypertensive and tachycardic at times. 12/12--monitor weights (4) Tachycardia 12/05 -EKG ordered to evaluate tachycardia--may have been related to anxiety due to psychosis or 1 mg dose of Risperdal night previously -VS ordered q shift to monitor for changes 12/10/16 - the patient's pulse rate remains periodically elevated. She tells us that she is somewhat anxious and is experiencing withdrawal from opioids and nicotine. 12/12--better this am, BP may preclude additional prn clonidine 12/14/16 - tachycardia worsening as we increase dose of risperdal, will taper risperdal and monitor. (5) Hypokalemia 12/05-potassium levels this AM = 4.3 -continue with usual I&O monitoring (6) Nicotine dependence 12/05--patient unable to participate in brief intervention at this time. nicotine patch 12/10/16 - today, the patient was able to discuss her use of the nicotine patch, but says that she wants to "get out of here so [she] can get a cigarette. Discharge / Aftercare Planning Primary Care Physician: Name: Ghazala lui [facility] Psychiatrist: Name: [facility] Wing -Lala Cook Date of Appointment: Dec 22, 2016 Time of Appointment: 10:00am Appointment Notes: [address] [place] [address] Therapist: Name: Kayla @ [facility] Visit Code E&M Code: 96406 Inventory Assets Strengths: supportive boyfriend, motivation to see son Needs: lack of family support, child currently in foster care Risk Factors Assessment : Yes Health problems: No Mental Health Diagnoses: No Substance use disorders: Yes Previous attempt: Yes Smoker: Yes Protective Factors Assessment Yarsani beliefs: Yes Employed: No Stable relationships: Yes Supportive family: No Data Vital Signs Last 24 Hrs: Date Time Temp Pulse Resp B/P (MAP) Pulse Ox O2 Delivery O2 Flow Rate FiO2 12/16/16 06:49 36.4 84 16 103/69 97 94/61 12/15/16 22:10 86 16 108/74 12/15/16 14:48 36.6 88 16 105/71 Meds Administered Last 24 Hrs: Current Inpatient Medications Medications (Trade) Dose Ordered Sig/Audrey Route Start Time Stop Time Status Last Admin Dose Admin Acetaminophen (Tylenol Tab) 650 mg Q4H PRN PO 12/04/16 21:00 01/03/17 20:59 12/15/16 06:57 650 MG Bismuth Subsalicylate (Kaopectate Liqd) 15 ml PRN PRN PO 12/04/16 21:00 01/03/17 20:59 Al Hydroxide/Mg Hydroxide (Maalox Susp) 30 ml Q4H PRN PO 12/04/16 21:00 01/03/17 20:59 12/14/16 12:24 30 ML Magnesium Hydroxide (Milk Of Magnesia Susp) 30 ml DAILY PRN PO 12/04/16 21:00 01/03/17 20:59 12/14/16 13:23 30 ML Sodium Chloride ([place] Nasal [place]) PRN PRN NA 12/04/16 21:00 01/03/17 20:59 Hydroxyzine HCl (Vistaril Tab) 50 mg HSZ PRN PO 12/04/16 21:00 01/03/17 20:59 12/12/16 00:06 50 MG Hydroxyzine HCl (Vistaril Tab) 25 mg Q4H PRN PO 12/04/16 21:00 01/03/17 20:59 Benztropine Mesylate (Cogentin Tab) 0.5 mg Q8 PRN PO 12/05/16 11:00 01/04/17 10:59 12/15/16 07:44 0.5 MG Nicotine (Nicoderm Cq 21MG Patch) 1 patch QAM TD 12/06/16 09:00 01/05/17 08:59 12/16/16 09:59 1 PATCH Nicotine Polacrilex (Nicorette 2MG Gum) 1 piece Q2H PRN MT 12/05/16 16:45 01/04/17 16:44 12/15/16 19:47 1 PIECE Miscellaneous (Remove Nicoderm Patch) 1 ea HS N/A 12/06/16 22:00 01/05/17 21:59 12/08/16 21:20 1 EA Ibuprofen (Motrin Tab) 800 mg TID PRN PO 12/11/16 11:30 01/10/17 11:29 12/13/16 18:56 800 MG Clonidine HCl (Catapres Tab) 0.1 mg Q4H PRN PO 12/11/16 11:30 01/10/17 11:29 12/14/16 15:32 0.1 MG Risperidone (Risperdal Tab) 1 mg Taper HS PO 12/14/16 22:00 12/17/16 21:59 12/15/16 21:45 1 MG Aripiprazole (Abilify Tab) 10 mg QAM PO 12/15/16 09:00 01/14/17 08:59 12/16/16 09:59 10 MG Aripiprazole (Abilify Tab) 5 mg BID PRN PO 12/14/16 10:15 01/13/17 10:14 Buprenorphine/ Naloxone (Suboxone Tab) 1 tab DAILY SL 12/16/16 09:00 01/15/17 08:59 12/16/16 09:59 1 TAB Problem Qualifiers (1) Opiate dependence: Substance use status: uncomplicated Qualified Codes: F11.20 - Opioid dependence, uncomplicated
[2016-12-16 15:14] VITALS: BP 111/75; PULSE 105
[2016-12-16] MEDS: NICOTINE POLACRILEX 2 MG GUM MT PRN (19:22)
[2016-12-16] MEDS: RISPERIDONE 1 MG TAB PO SCH (22:13)
[2016-12-16 22:27] VITALS: BP 100/66; PULSE 89
[2016-12-17 06:53] VITALS: BP_SYST 107; BP_SYST 97; BP_DIAS 65; BP_DIAS 71; PULSE 89; PULSE 96; TEMP 36.6
[2016-12-17] MEDS: NICOTINE 21 MG/24 HR TDSY TD SCH (09:06)
[2016-12-17] MEDS: ARIPIprazole TAB 5 MG TAB PO SCH (09:06)
[2016-12-17] MEDS: BUPRENORPHINE/NALOXONE 8/2 MG TAB SL SCH (09:06)
--- NOTE | 2016-12-17 09:06 | Psychiatric Progress Notes ---
Progress Note Date of Service Dec 17, 2016. Interval History Mariia Rand is a 26-year-old female who currently lives in [place] with her boyfriend. Mariia Rand was admitted on a 201 voluntary commitment. Patient is admitted from home. The patient was brought to the ED by her boyfriend after a recommendation for evaluation by Nick Amanda. She attempted to withdraw from treatment so she was placed on a 302, on 303 as of 12/12/16. Chief Complaint "Good". Subjective Patient was seen & assessed interval progress reviewed with Treatment Team. Staff report she went to some groups, but left early. [facility] is coming tomorrow morning. She had a meeting with her boyfriend and he thought she was improving. The patient states mood, appetite, and sleep are all "good." She thinks eating healthier food here is helping. She says thoughts are still jumbled and confused , but it is improving. She denies AVH, paranoia, SI. She denies problems with medication. She is willing to visit with the [employer] worker and her son Arturo tomorrow, but denies having any emotion about this. She last saw him two weeks ago. She later says she hates having to see him in foster care and hopes he will be able to come home with her. She hopes to be ready to go home tomorrow. Sleep Information Total Hours of Sleep: 5.00 Meal Information Percent of Breakfast Consumed: 100 Percent of Lunch Consumed: 100 Percent of Dinner Consumed: 100 Mental Status Exam During interview pt is: alert and oriented, cooperative, guarded Appearance: appropriately dressed, appeared stated age, other (thin) Eye contact is: poor Motor behavior is: steady gait & station, no abnormal motor movements Speech: normal in rate, rhythm & volume (minimal speech, monotone, nonspontaneous) Affect: flat, other (incongruent with stated mood) Mood is: other ("good") Thought process: goal directed, linear, logical, concrete Thought content: other (paucity of thought content although improving - gives brief, vague answers) Suicidal thought are: denied Homicidal thoughts are: denied Hallucinations: denies auditory, denies visual Cognition: language grossly intact Intelligence estimated to be: consistent with level of education Insight: limited Judgement: limited Impression Pt now on a 303, is agreeable to taking scheduled medications. Patient tachycardiac on risperdal and so cross tapered to Abilify started on 12/14. Today staff will check to see if it is covered by her insurance as it may require PA. Plan (1) Unspecified psychosis 12/05-The patient is admitted to [facility] ([facility] mental [facility] unit) on q 15 min checks (behavioral with suicide precautions) for safety. The patient will participate in group, recreational and milieu therapies and will be offered additional individual and family sessions as clinically appropriate. Trial Risperdal M Tab 0.5mg qid PRN anxiety/agitation. -Risperdal M Tab 0.5mg qHS scheduled this hs. Patient agreeable following discussion of indication and need to monitor for metabolic side effects and TD, low dose given low BMI. -FLP & FBG drawn this AM all within nml limits. Triglycerides = 77; Total cholesterol = 104; LDL = 50; HDL = 39. FBG = 85. A private room remains medically necessary for the safety of self and others as presents this am as paranoid and behaviors have been somewhat unpredictable. Milagros prn dystonia if needed patient has given variable reports of whether she was/was not admitted to [facility], will obtain records if available 12/06 -remains guarded and withdrawn. Due to paranoia and level of disorganization of thought process with remain in medically necessary private room and continue Risperdal M tab 12/07 - remains guarded and paranoid and private room remains medically necessary. Will encourage to take Risperdal M tab to address paranoia. 12/08--remains paranoid and suspicious, feeling that someone here may want to hurt her. Continue medically necessary private room. --She is unwilling to rescind her 72 hour notice, and is not yet stable for discharge, so we'll proceed with a 302 involuntary commitment. --Increase risperidone to 1 mg daily at bedtime. --Get collateral information from her boyfriend, and schedule a family meeting when she is less psychotic. 12/09 --Psychosis continues, and she refused her risperidone last night, but took it this morning with significant staff encouragement. --Continue to encourage the patient to participate in treatment, but she is very guarded and isolative. --She is now on a 302 involuntary commitment, and will likely require a 303 commitment. Should she continue to refuse antipsychotic medication, and believe she would benefit from medications over objection, as she is grossly psychotic and unable to participate in assessments her treatment due to disordered thinking and behavior. --Attempted to contact her boyfriend for collateral information, but his mailbox was full and unable to leave a message; will ask staff to speak with him and attempting to get more information when he visits. 12/10/16 --Although the patient denies perceptual disturbances and voices no systematized delusional material, there is evidence that she remains psychotic and she appears to have little to no insight. Specifically, the patient tells me that she wants to know if there is "an ongoing investigation" about her, but then declines to say why she believes this may be true. We are continuing to attempt to reach the patient's boyfriend for collateral information. The picture is complicated by the patient's history of opioid dependence. She also appears to be minimizing her shins of her history. For example, she tells me that she was only "outpatient" at the [facility], denies any history of overdoses, and says that she only cut herself as a teenager in order to be allowed to change high school so that she could go the same high school as a friend who had been transferred to the other school because she, herself, had cut herself. We'll the patient appears to shown some improvement, I suspect that she is quite psychotic underneath and is at substantial risk for serious physical injury where she not to be provided active psychiatric treatment at the inpatient level of care. 12/11 - Continue Risperdal 2 mg. HS - Reality orientation 12/12--303 hearing completed/granted. 12/13 - Pt continues to display a flat affect. Although reporting mood as "good" her behaviors are incongruent with these statements. - Pt currently taking am PRN dose of 0.5mg Risperdal for the past two days, totalling 2.5mg. Suggest increasing total dosing to 3mg daily all given at bedtime to reduce risk of sedation that may come with increasing a dose in the morning. 12/14/16 - on review of record patient has had tachycardia since admission worsening today back to unacceptable levels despite maintaining hydration, no other s/sx of NMS or EPS/Dystonia at this time. Risperdal can be associated with tachycardia and she is not having a robust response to date despite several days at 2.5mg and significant elevated HR today in the high 130's/140's at rest. Will taper over 3days and simultaneously start abilify 5mg today and 10mg qday there after with 5mg po bid prn psychosis. r/b/se/a discussed with patient (see today's subjective note) 12/05/16 last metabolic tests reviewed. 12/15 - Patient received Abilify 10 mg this am. Tachycardia is resolving 12/16 -Continue Abilify -Patient has an appointment with her therapist, Kayla, at [facility] in [place] every Thursday. She will need to sign a release for [facility] if this has not been done already. And this appointment will need to be canceled for tomorrow. -Family meeting with boyfriend today. 12/17 -Improving slowly, continue aripiprazole, and check for need for PA/ins coverage. FM with BF went well and [facility] will bring her son to visit tomorrow. May be able to discharge tomorrow if continues to improve and tolerates visit well. Appetite is improving, and we are arranging aftercare and referring for psychiatric follow up. (2) Opiate dependence LYNNE completed for [facility] on admission, attempting to verify dosing and plan; unable to participate in brief intervention, in structured D&A program 12/08--patient has refused Suboxone the past 2 days, and if she continues to refuse it, we can discontinue it. 12/09--patient continues to refuse Suboxone, stating it makes her feel unwell. I will discontinue it. 12/11 - Clonidine 0.5 mg. Q 4 h prn opiate withdrawal - Kaopectate for diarrhea prn - Ibuprofen 800 mg. TID prn myalgias 12/15 -Patient requesting suboxone and complains of not feeling well. Outpatient dose had been verified with Dr. Lucia's office at time of admission by Carmine Saunders RN. Her outpatient dose was 8m g/2 mg 1.5 tabs once daily. Patient has not taken it for a week due to refusing it stating he made her feel sick and so it was discontinued. She starting asking for it yesterday. Patient understands that we will not be able to prescribe on discharge and agrees to restart at 8 mg /2 mg. She intended to continue Suboxone treatment when she is discharged. (3) Underweight 12/09 --Rule out eating disorder once patient is less psychotic and better able to participate in the interview. --Continue to encourage good by mouth intake, both food and fluids, as she has been refusing multiple meals, and has been hypertensive and tachycardic at times. 12/12--monitor weights (4) Tachycardia 12/05 -EKG ordered to evaluate tachycardia--may have been related to anxiety due to psychosis or 1 mg dose of Risperdal night previously -VS ordered q shift to monitor for changes 12/10/16 - the patient's pulse rate remains periodically elevated. She tells us that she is somewhat anxious and is experiencing withdrawal from opioids and nicotine. 12/12--better this am, BP may preclude additional prn clonidine 12/14/16 - tachycardia worsening as we increase dose of risperdal, will taper risperdal and monitor. (5) Hypokalemia 12/05-potassium levels this AM = 4.3 -continue with usual I&O monitoring (6) Nicotine dependence 12/05--patient unable to participate in brief intervention at this time. nicotine patch 12/10/16 - today, the patient was able to discuss her use of the nicotine patch, but says that she wants to "get out of here so [she] can get a cigarette. Discharge / Aftercare Planning Primary Care Physician: Name: Ghazala at [facility] Psychiatrist: Name: [facility] Intake -Lala Cook Date of Appointment: Dec 22, 2016 Time of Appointment: 10:00am Appointment Notes: [address] [place] [address] Therapist: Name: Kayla @ [facility] Visit Code E&M Code: 71396 Inventory Assets Strengths: supportive boyfriend, motivation to see son Needs: lack of family support, child currently in foster care Risk Factors Assessment : Yes Health problems: No Mental Health Diagnoses: No Substance use disorders: Yes Previous attempt: Yes Smoker: Yes Protective Factors Assessment Jew beliefs: Yes Employed: No Stable relationships: Yes Supportive family: No Data Vital Signs Last 24 Hrs: Date Time Temp Pulse Resp B/P (MAP) Pulse Ox O2 Delivery O2 Flow Rate FiO2 12/17/16 06:53 36.6 89 16 107/71 96 97/65 12/16/16 22:27 89 100/66 12/16/16 15:14 105 16 111/75 Meds Administered Last 24 Hrs: Meds Administered (Past 24Hrs) Medications (Trade) Dose Ordered Sig/Audrey Route Start Time Stop Time Status Last Admin Dose Admin Aripiprazole (Abilify Tab) 10 mg QAM PO 12/15/16 09:00 01/14/17 08:59 12/16/16 09:59 10 MG Buprenorphine/ Naloxone (Suboxone Tab) 1 tab DAILY SL 12/16/16 09:00 01/15/17 08:59 12/16/16 09:59 1 TAB Buprenorphine/ Naloxone (Suboxone Tab) 1 tab 1144 ONCE SL 12/15/16 11:44 12/15/16 11:53 DC 12/15/16 12:37 1 TAB Problem Qualifiers (1) Opiate dependence: Substance use status: uncomplicated Qualified Codes: F11.20 - Opioid dependence, uncomplicated
[2016-12-17] MEDS: ACETAMINOPHEN 325 MG TAB PO PRN ×2 (11:25→21:56)
[2016-12-17] MEDS: NICOTINE POLACRILEX 2 MG GUM MT PRN ×2 (13:37→18:32)
[2016-12-17 14:00] VITALS: BP 126/75; PULSE 60; TEMP 36.9
[2016-12-17 22:12] VITALS: BP 112/77; PULSE 93
[2016-12-18 06:39] VITALS: BP_SYST 105; BP_SYST 96; BP_DIAS 73; BP_DIAS 77; PULSE 77; PULSE 82; TEMP 36.5
[2016-12-18] MEDS: ARIPIprazole TAB 5 MG TAB PO SCH (09:08)
[2016-12-18] MEDS: NICOTINE 21 MG/24 HR TDSY TD SCH (09:08)
[2016-12-18] MEDS: BUPRENORPHINE/NALOXONE 8/2 MG TAB SL SCH (09:19)
--- NOTE | 2016-12-18 11:56 | Psychiatric Progress Notes ---
Progress Note Date of Service Dec 18, 2016. Interval History Mariia Rand is a 26-year-old female who currently lives in [place] with her boyfriend. Mariia Rand was admitted on a 201 voluntary commitment. Patient is admitted from home. The patient was brought to the ED by her boyfriend after a recommendation for evaluation by Nick Amanda. She attempted to withdraw from treatment so she was placed on a 302, on 303 as of 12/12/16. Chief Complaint "Good". Subjective Patient was seen & assessed interval progress reviewed with Nursing. Staff reported the patient had a difficult evening, became overwhelmed during a fire alarm, and ran to her room crying. When staff attempted to meet with her to process what was happening, she made comments about hearing voices, then refused to answer further questions, stating that everyone was out to get her. She made comments that the voices were overwhelming, but would not answer further questions about this. She said she was "trying to figure things out," and did not want to talk to anyone. The social media coordinator spoke with her therapist, who said they have been trying to determine whether the patient's difficulty caring for her son is due to her mental illness or to cognitive issues, and were hoping to pursue IQ testing. They've had difficulty identifying somebody who takes her insurance. She told the social media coordinator that she was not sure if she was ready to leave, and might want to stay longer. This morning, she said that she was having difficulty organizing her thoughts, and was not sure if she felt ready for discharge. She was very focused on getting her medication, hoping that this would help her to feel better. She then told staff that she didn't feel well enough to meet with her [facility] counselor, although they had come to the hospital to meet with her. The social media coordinator initially met with Ria from [facility], and they are requesting psychological testing for the patient. The patient eventually did agree to meet with them, but appeared withdrawn and paranoid and stated her thoughts were jumbled. She is eating better with staff encouragement. Sleep Information Total Hours of Sleep: 7.00 Meal Information Percent of Breakfast Consumed: 90 Percent of Lunch Consumed: 100 Percent of Dinner Consumed: 100 Mental Status Exam During interview pt is: alert and oriented, cooperative (but guarded and gives vague answers), guarded Appearance: appropriately dressed, appeared stated age, other (thin) Eye contact is: poor Motor behavior is: steady gait & station, no abnormal motor movements Speech: normal in rate, rhythm & volume (minimal speech, monotone, nonspontaneous) Affect: flat, anxious, other (incongruent with stated mood) Mood is: other ("good") Thought process: goal directed, linear, logical, concrete Thought content: other (paucity of thought content although improving - gives brief, vague answers, appears distracted, mildly disorganized) Suicidal thought are: denied Homicidal thoughts are: denied Hallucinations: denies auditory (but told staff last night she was hearing voices, and appears to be responding to internal stimuli), denies visual Cognition: language grossly intact, other (memory and attention are both impaired) Intelligence estimated to be: consistent with level of education Insight: limited Judgement: limited Impression Pt now on a 303, is agreeable to taking scheduled medications. Patient tachycardiac on risperdal and so cross tapered to Abilify started on 12/14. Staff are checking to see if it is covered by her insurance as it may require PA. Patient decompensated last evening during a fire alarm, made comments about hearing voices, but was guarded and did not want to discuss this further with staff. This morning, she is disorganized and unable to engage in a discussion about discharge. She stated she did not feel well enough to meet with her [facility] worker, and is not yet ready for discharge. Plan (1) Unspecified psychosis 12/05-The patient is admitted to [facility] ([facility]) on q 15 min checks (behavioral with suicide precautions) for safety. The patient will participate in group, recreational and milieu therapies and will be offered additional individual and family sessions as clinically appropriate. Trial Risperdal M Tab 0.5mg qid PRN anxiety/agitation. -Risperdal M Tab 0.5mg qHS scheduled this hs. Patient agreeable following discussion of indication and need to monitor for metabolic side effects and TD, low dose given low BMI. -FLP & FBG drawn this AM all within nml limits. Triglycerides = 77; Total cholesterol = 104; LDL = 50; HDL = 39. FBG = 85. A private room remains medically necessary for the safety of self and others as presents this am as paranoid and behaviors have been somewhat unpredictable. Cogentin prn dystonia if needed patient has given variable reports of whether she was/was not admitted to [facility], will obtain records if available 12/06 -remains guarded and withdrawn. Due to paranoia and level of disorganization of thought process with remain in medically necessary private room and continue Risperdal M tab 12/07 - remains guarded and paranoid and private room remains medically necessary. Will encourage to take Risperdal M tab to address paranoia. 12/08--remains paranoid and suspicious, feeling that someone here may want to hurt her. Continue medically necessary private room. --She is unwilling to rescind her 72 hour notice, and is not yet stable for discharge, so we'll proceed with a 302 involuntary commitment. --Increase risperidone to 1 mg daily at bedtime. --Get collateral information from her boyfriend, and schedule a family meeting when she is less psychotic. 12/09 --Psychosis continues, and she refused her risperidone last night, but took it this morning with significant staff encouragement. --Continue to encourage the patient to participate in treatment, but she is very guarded and isolative. --She is now on a 302 involuntary commitment, and will likely require a 303 commitment. Should she continue to refuse antipsychotic medication, and believe she would benefit from medications over objection, as she is grossly psychotic and unable to participate in assessments her treatment due to disordered thinking and behavior. --Attempted to contact her boyfriend for collateral information, but his mailbox was full and unable to leave a message; will ask staff to speak with him and attempting to get more information when he visits. 12/10/16 --Although the patient denies perceptual disturbances and voices no systematized delusional material, there is evidence that she remains psychotic and she appears to have little to no insight. Specifically, the patient tells me that she wants to know if there is "an ongoing investigation" about her, but then declines to say why she believes this may be true. We are continuing to attempt to reach the patient's boyfriend for collateral information. The picture is complicated by the patient's history of opioid dependence. She also appears to be minimizing her shins of her history. For example, she tells me that she was only "outpatient" at the [facility], denies any history of overdoses, and says that she only cut herself as a teenager in order to be allowed to change high school so that she could go the same high school as a friend who had been transferred to the other school because she, herself, had cut herself. We'll the patient appears to shown some improvement, I suspect that she is quite psychotic underneath and is at substantial risk for serious physical injury where she not to be provided active psychiatric treatment at the inpatient level of care. 12/11 - Continue Risperdal 2 mg. HS - Reality orientation 12/12--303 hearing completed/granted. 12/13 - Pt continues to display a flat affect. Although reporting mood as "good" her behaviors are incongruent with these statements. - Pt currently taking am PRN dose of 0.5mg Risperdal for the past two days, totalling 2.5mg. Suggest increasing total dosing to 3mg daily all given at bedtime to reduce risk of sedation that may come with increasing a dose in the morning. 12/14/16 - on review of record patient has had tachycardia since admission worsening today back to unacceptable levels despite maintaining hydration, no other s/sx of NMS or EPS/Dystonia at this time. Risperdal can be associated with tachycardia and she is not having a robust response to date despite several days at 2.5mg and significant elevated HR today in the high 130's/140's at rest. Will taper over 3days and simultaneously start abilify 5mg today and 10mg qday there after with 5mg po bid prn psychosis. r/b/se/a discussed with patient (see today's subjective note) 12/05/16 last metabolic tests reviewed. 12/15 - Patient received Abilify 10 mg this am. Tachycardia is resolving 12/16 - Continue Abilify - Patient has an appointment with her therapist, Kayla, at [facility] in [place] every Thursday. She will need to sign a release for [facility] if this has not been done already. And this appointment will need to be canceled for tomorrow. - Family meeting with boyfriend today. 12/17 - Improving slowly, continue aripiprazole, and check for need for PA/ins coverage. FM with BF went well and [facility] will bring her son to visit tomorrow. May be able to discharge tomorrow if continues to improve and tolerates visit well. Appetite is improving, and we are arranging aftercare and referring for psychiatric follow up. 12/18 - Abilify covered by insurance with a $1.20 co-pay. - [facility] visited but without the patient's son, and she was poorly able to tolerate this as she felt overwhelmed and appears to be hallucinating. Consider an increase in aripiprazole. - Oral intake improving with staff encouragement. - hops farmworker exploring referral to the [facility] psych clinic for psych testing. (2) Opiate dependence LYNNE completed for [facility] on admission, attempting to verify dosing and plan; unable to participate in brief intervention, in structured D&A program 12/08--patient has refused Suboxone the past 2 days, and if she continues to refuse it, we can discontinue it. 12/09--patient continues to refuse Suboxone, stating it makes her feel unwell. I will discontinue it. 12/11 - Clonidine 0.5 mg. Q 4 h prn opiate withdrawal - Kaopectate for diarrhea prn - Ibuprofen 800 mg. TID prn myalgias 12/15 -Patient requesting suboxone and complains of not feeling well. Outpatient dose had been verified with Dr. Lucia's office at time of admission by Carmine Saunders RN. Her outpatient dose was 8m g/2 mg 1.5 tabs once daily. Patient has not taken it for a week due to refusing it stating he made her feel sick and so it was discontinued. She starting asking for it yesterday. Patient understands that we will not be able to prescribe on discharge and agrees to restart at 8 mg /2 mg. She intended to continue Suboxone treatment when she is discharged. (3) Underweight 12/09 --Rule out eating disorder once patient is less psychotic and better able to participate in the interview. --Continue to encourage good by mouth intake, both food and fluids, as she has been refusing multiple meals, and has been hypertensive and tachycardic at times. 12/12--monitor weights (4) Tachycardia 12/05 -EKG ordered to evaluate tachycardia--may have been related to anxiety due to psychosis or 1 mg dose of Risperdal night previously -VS ordered q shift to monitor for changes 12/10/16 - the patient's pulse rate remains periodically elevated. She tells us that she is somewhat anxious and is experiencing withdrawal from opioids and nicotine. 12/12--better this am, BP may preclude additional prn clonidine 12/14/16 - tachycardia worsening as we increase dose of risperdal, will taper risperdal and monitor. (5) Hypokalemia 12/05-potassium levels this AM = 4.3 -continue with usual I&O monitoring (6) Nicotine dependence 12/05--patient unable to participate in brief intervention at this time. nicotine patch 12/10/16 - today, the patient was able to discuss her use of the nicotine patch, but says that she wants to "get out of here so [she] can get a cigarette. Discharge / Aftercare Planning Primary Care Physician: Name: Ghazala at [facility] Psychiatrist: Name: [facility] Wing Cook Date of Appointment: Dec 22, 2016 Time of Appointment: 10:00am Appointment Notes: [address] [place] [address] Therapist: Name: Kayla @ [facility] Date of Appointment: Dec 24, 2016 Time of Appointment: 11am Construction Management Instructor: Name: Barbara Barbour Specialist: Name: [facility] Other: Name of Appointment #1: [facility] Date of Appointment #1: Dec 24, 2016 Time of Appointment #1: 9am Visit Code E&M Code: 45518 Inventory Assets Strengths: supportive boyfriend, motivation to see son Needs: lack of family support, child currently in foster care Risk Factors Assessment : Yes Health problems: No Mental Health Diagnoses: No Substance use disorders: Yes Previous attempt: Yes Smoker: Yes Protective Factors Assessment Catholic beliefs: Yes Employed: No Stable relationships: Yes Supportive family: No Data Vital Signs Last 24 Hrs: Date Time Temp Pulse Resp B/P (MAP) Pulse Ox O2 Delivery O2 Flow Rate FiO2 12/18/16 06:39 36.5 77 18 105/73 82 96/77 12/17/16 22:12 93 112/77 12/17/16 14:00 36.9 60 16 126/75 Problem Qualifiers (1) Opiate dependence: Substance use status: uncomplicated Qualified Codes: F11.20 - Opioid dependence, uncomplicated
[2016-12-18 14:59] VITALS: BP 114/76; PULSE 93
[2016-12-18] MEDS: NICOTINE POLACRILEX 2 MG GUM MT PRN ×2 (17:30→19:30)
[2016-12-18] MEDS: ARIPIprazole TAB 5 MG TAB PO PRN (18:28)
[2016-12-18 21:37] VITALS: BP 110/87; PULSE 87
[2016-12-18 23:07] VITALS: BP 110/87; PULSE 87; TEMP 36.5
[2016-12-19 06:34] VITALS: BP 107/74; PULSE 101; PULSE 81; TEMP 36.5
[2016-12-19] MEDS: NICOTINE 21 MG/24 HR TDSY TD SCH (08:50)
[2016-12-19] MEDS: ARIPIprazole TAB 5 MG TAB PO SCH (08:50)
[2016-12-19] MEDS: BUPRENORPHINE/NALOXONE 8/2 MG TAB SL SCH (08:50)
[2016-12-19] MEDS: NICOTINE POLACRILEX 2 MG GUM MT PRN ×3 (09:51→20:23)
[2016-12-19] MEDS ORDERED: ARIPIprazole TAB 5 MG TAB PO ONE (12:45)
--- NOTE | 2016-12-19 13:21 | Psychiatric Progress Notes ---
Progress Note Date of Service Dec 19, 2016. Interval History Mariia Rand is a 26-year-old female who currently lives in [place] with her boyfriend. Mariia Rand was admitted on a 201 voluntary commitment. Patient is admitted from home. The patient was brought to the ED by her boyfriend after a recommendation for evaluation by Nick Amanda. She attempted to withdraw from treatment so she was placed on a 302, on 303 as of 12/12/16. Chief Complaint "I'm OK with that", when discussing length of stay and medication plan Subjective Patient was seen & assessed interval progress reviewed with Treatment Team. Met with [facility], overstimulated during visiting hours/fire alarm (with randhawa) led to decision to postpone discharge. got prn Abilizbigniewy last pm, cannot relate why to me at this time. Also, she can't relate content of meeting with [facility]. Staff report that boyfriend states that she calls and says she hates him and then calls back states she loves him like nothing happened. Review of Systems Psych: denies symptoms other than stated above Constitutional: denied Cardiovascular: denied GI: denied Neurologic: denied Remainder of 10 body systems also reviewed and denied other than noted above. Sleep Information Total Hours of Sleep: 7.75 Meal Information Percent of Breakfast Consumed: 50 Percent of Lunch Consumed: 50 Percent of Dinner Consumed: 100 Mental Status Exam During interview pt is: alert and oriented, cooperative (superficially) Appearance: appropriately dressed, appeared stated age, other (thin) Eye contact is: poor Motor behavior is: steady gait & station, no abnormal motor movements Speech: normal in rate, rhythm & volume (less delay in response, still doesn't elaborate) Affect: constricted Mood is: other ("good") Thought process: concrete (less blocking) Thought content: other (paucity of thought content although improving - gives brief, vague answers, appears distracted) Suicidal thought are: denied Homicidal thoughts are: denied Hallucinations: denies auditory, denies visual Cognition: language grossly intact, other (memory and attention are both impaired) Intelligence estimated to be: consistent with level of education Insight: limited Judgement: limited Impression Pt on a 303, taking scheduled medications. Patient tachycardiac on risperdal and so cross tapered to Abilify started on 12/14. Continued Inpatient Care Continued inpatient hospitalization is medically necessary for ongoing monitoring and safety. Plan (1) Unspecified psychosis 12/05-The patient is admitted to [facility] ([facility] unit) on q 15 min checks (behavioral with suicide precautions) for safety. The patient will participate in group, recreational and milieu therapies and will be offered additional individual and family sessions as clinically appropriate. Trial Risperdal M Tab 0.5mg qid PRN anxiety/agitation. -Risperdal M Tab 0.5mg qHS scheduled this hs. Patient agreeable following discussion of indication and need to monitor for metabolic side effects and TD, low dose given low BMI. -FLP & FBG drawn this AM all within nml limits. Triglycerides = 77; Total cholesterol = 104; LDL = 50; HDL = 39. FBG = 85. A private room remains medically necessary for the safety of self and others as presents this am as paranoid and behaviors have been somewhat unpredictable. Cogentin prn dystonia if needed patient has given variable reports of whether she was/was not admitted to [facility], will obtain records if available 12/06 -remains guarded and withdrawn. Due to paranoia and level of disorganization of thought process with remain in medically necessary private room and continue Risperdal M tab 12/07 - remains guarded and paranoid and private room remains medically necessary. Will encourage to take Risperdal M tab to address paranoia. 12/08--remains paranoid and suspicious, feeling that someone here may want to hurt her. Continue medically necessary private room. --She is unwilling to rescind her 72 hour notice, and is not yet stable for discharge, so we'll proceed with a 302 involuntary commitment. --Increase risperidone to 1 mg daily at bedtime. --Get collateral information from her boyfriend, and schedule a family meeting when she is less psychotic. 12/09 --Psychosis continues, and she refused her risperidone last night, but took it this morning with significant staff encouragement. --Continue to encourage the patient to participate in treatment, but she is very guarded and isolative. --She is now on a 302 involuntary commitment, and will likely require a 303 commitment. Should she continue to refuse antipsychotic medication, and believe she would benefit from medications over objection, as she is grossly psychotic and unable to participate in assessments her treatment due to disordered thinking and behavior. --Attempted to contact her boyfriend for collateral information, but his mailbox was full and unable to leave a message; will ask staff to speak with him and attempting to get more information when he visits. 12/10/16 --Although the patient denies perceptual disturbances and voices no systematized delusional material, there is evidence that she remains psychotic and she appears to have little to no insight. Specifically, the patient tells me that she wants to know if there is "an ongoing investigation" about her, but then declines to say why she believes this may be true. We are continuing to attempt to reach the patient's boyfriend for collateral information. The picture is complicated by the patient's history of opioid dependence. She also appears to be minimizing her shins of her history. For example, she tells me that she was only "outpatient" at the [facility], denies any history of overdoses, and says that she only cut herself as a teenager in order to be allowed to change high school so that she could go the same high school as a friend who had been transferred to the other school because she, herself, had cut herself. We'll the patient appears to shown some improvement, I suspect that she is quite psychotic underneath and is at substantial risk for serious physical injury where she not to be provided active psychiatric treatment at the inpatient level of care. 12/11 - Continue Risperdal 2 mg. HS - Reality orientation 12/12--303 hearing completed/granted. 12/13 - Pt continues to display a flat affect. Although reporting mood as "good" her behaviors are incongruent with these statements. - Pt currently taking am PRN dose of 0.5mg Risperdal for the past two days, totalling 2.5mg. Suggest increasing total dosing to 3mg daily all given at bedtime to reduce risk of sedation that may come with increasing a dose in the morning. 12/14/16 - on review of record patient has had tachycardia since admission worsening today back to unacceptable levels despite maintaining hydration, no other s/sx of NMS or EPS/Dystonia at this time. Risperdal can be associated with tachycardia and she is not having a robust response to date despite several days at 2.5mg and significant elevated HR today in the high 130's/140's at rest. Will taper over 3days and simultaneously start abilify 5mg today and 10mg qday there after with 5mg po bid prn psychosis. r/b/se/a discussed with patient (see today's subjective note) 12/05/16 last metabolic tests reviewed. 12/15 - Patient received Abilify 10 mg this am. Tachycardia is resolving 12/16 - Continue Abilify - Patient has an appointment with her therapist, Kayla, at [facility] in [place] every Thursday. She will need to sign a release for [facility] if this has not been done already. And this appointment will need to be canceled for tomorrow. - Family meeting with boyfriend today. 12/17 - Improving slowly, continue aripiprazole, and check for need for PA/ins coverage. FM with BF went well and [facility] will bring her son to visit tomorrow. May be able to discharge tomorrow if continues to improve and tolerates visit well. Appetite is improving, and we are arranging aftercare and referring for psychiatric follow up. 12/18 - Abilify covered by insurance with a $1.20 co-pay. - [facility] visited but without the patient's son, and she was poorly able to tolerate this as she felt overwhelmed and appears to be hallucinating. Consider an increase in aripiprazole. - Oral intake improving with staff encouragement. - electric utility lineworker exploring referral to the [facility] psych clinic for psych testing. 12/19 --psych clinic will not accept for testing, sw notes insurance barriers in community. Reviewed that this could be explored through [facility]. Testing should be postponed anyway until she is more recovered from her psychotic episode but team concerned about ultimate diagnosis of schizophrenia. Titrate Abilify to 15 mg po qam effective today. (2) Opiate dependence LYNNE completed for [facility] on admission, attempting to verify dosing and plan; unable to participate in brief intervention, in structured D&A program 12/08--patient has refused Suboxone the past 2 days, and if she continues to refuse it, we can discontinue it. 12/09--patient continues to refuse Suboxone, stating it makes her feel unwell. I will discontinue it. 12/11 - Clonidine 0.5 mg. Q 4 h prn opiate withdrawal - Kaopectate for diarrhea prn - Ibuprofen 800 mg. TID prn myalgias 12/15 -Patient requesting suboxone and complains of not feeling well. Outpatient dose had been verified with Dr. Lucia's office at time of admission by Carmine Saunders RN. Her outpatient dose was 8m g/2 mg 1.5 tabs once daily. Patient has not taken it for a week due to refusing it stating he made her feel sick and so it was discontinued. She starting asking for it yesterday. Patient understands that we will not be able to prescribe on discharge and agrees to restart at 8 mg /2 mg. She intended to continue Suboxone treatment when she is discharged. (3) Underweight 12/09 --Rule out eating disorder once patient is less psychotic and better able to participate in the interview. --Continue to encourage good by mouth intake, both food and fluids, as she has been refusing multiple meals, and has been hypertensive and tachycardic at times. 12/12--monitor weights (4) Tachycardia 12/05 -EKG ordered to evaluate tachycardia--may have been related to anxiety due to psychosis or 1 mg dose of Risperdal night previously -VS ordered q shift to monitor for changes 12/10/16 - the patient's pulse rate remains periodically elevated. She tells us that she is somewhat anxious and is experiencing withdrawal from opioids and nicotine. 12/12--better this am, BP may preclude additional prn clonidine 12/14/16 - tachycardia worsening as we increase dose of risperdal, will taper risperdal and monitor. (5) Hypokalemia 12/05-potassium levels this AM = 4.3 -continue with usual I&O monitoring (6) Nicotine dependence 12/05--patient unable to participate in brief intervention at this time. nicotine patch 12/10/16 - today, the patient was able to discuss her use of the nicotine patch, but says that she wants to "get out of here so [she] can get a cigarette. Discharge / Aftercare Planning Primary Care Physician: Name: Ghazala at [facility] Psychiatrist: Name: [facility] Intake -Lala Cook Date of Appointment: Dec 22, 2016 Time of Appointment: 10:00am Appointment Notes: [address] [place] [address] Therapist: Name: Kayla @ [facility] Date of Appointment: Dec 24, 2016 Time of Appointment: 11am Unbundler: Name: Barbara Barbour Specialist: Name: [facility] Other: Name of Appointment #1: [facility] Date of Appointment #1: Dec 24, 2016 Time of Appointment #1: 9am Visit Code E&M Code: 00313 Inventory Assets Strengths: supportive boyfriend, motivation to see son Needs: lack of family support, child currently in foster care Risk Factors Assessment : Yes Health problems: No Mental Health Diagnoses: No Substance use disorders: Yes Previous attempt: Yes Smoker: Yes Protective Factors Assessment Confucianism beliefs: Yes Employed: No Stable relationships: Yes Supportive family: No Data Vital Signs Last 24 Hrs: Date Time Temp Pulse Resp B/P (MAP) Pulse Ox O2 Delivery O2 Flow Rate FiO2 12/19/16 06:34 36.5 81 16 107/74 101 12/18/16 23:07 36.5 87 18 110/87 12/18/16 21:37 87 18 110/87 12/18/16 14:59 93 114/76 Problem Qualifiers (1) Opiate dependence: Substance use status: uncomplicated Qualified Codes: F11.20 - Opioid dependence, uncomplicated
[2016-12-19 14:00] VITALS: BP 107/72; PULSE 92
[2016-12-19] MEDS: MAGNESIUM HYDROXIDE SUSP 30 ML UDC PO PRN (14:49)
[2016-12-19 23:01] VITALS: BP 110/76; PULSE 86
[2016-12-20 06:56] VITALS: BP_SYST 83; BP_SYST 97; BP_DIAS 53; BP_DIAS 63; PULSE 91; PULSE 96; TEMP 36.6
[2016-12-20] MEDS: ARIPIprazole TAB 15 MG TAB PO SCH (08:59)
[2016-12-20] MEDS: BUPRENORPHINE/NALOXONE 8/2 MG TAB SL SCH (08:59)
[2016-12-20] MEDS: NICOTINE 21 MG/24 HR TDSY TD SCH (09:07)
[2016-12-20] MEDS: MAGNESIUM HYDROXIDE SUSP 30 ML UDC PO PRN (10:58)
[2016-12-20] MEDS: NICOTINE POLACRILEX 2 MG GUM MT PRN ×5 (11:55→20:34)
[2016-12-20] MEDS: ACETAMINOPHEN 325 MG TAB PO PRN ×2 (11:55→19:50)
--- NOTE | 2016-12-20 14:25 | Psychiatric Progress Notes ---
Progress Note Date of Service Dec 20, 2016. Interval History Mariia Rand is a 26-year-old female who currently lives in [place] with her boyfriend. Mariia Rand was admitted on a 201 voluntary commitment. Patient is admitted from home. The patient was brought to the ED by her boyfriend after a recommendation for evaluation by [facility]. She attempted to withdraw from treatment so she was placed on a 302, on 303 as of 12/12/16. Chief Complaint "I didn't feel like going to group". Subjective Patient was seen & assessed interval progress reviewed with nursing. Pt was seen in her room. She refused to go to card writer hand's office. She indicated did not feel like going to group and thus was laying on her bed instead. She inquired if this was the psych part of the hospital. She denied AH or VH. She denied IOR. She denied paranoid thinking. No delusional thinking was elicited. She was focused on wanting Suboxone twice a day, and stated that this is how she obtains Suboxone. However staff report that suboxone had been prescribed the same as currently being given. Pt states she is ready for discharge tomorrow. She complained of some neck soreness and indicated limited range of motion with her neck while being observed prior to and after that having full normal range of motion of her neck, including earlier in same interaction. Pt denied other concerns. She denied feeling depressed today and that sleep fine last night. Review of Systems Constitutional: No fever, No chills, No sweats, No weight loss, No weakness, No fatigue, No problem reported Musculoskeletal: + problem reported (as above denied other ) Psychiatric: + problem reported (as above denied other ) Sleep Information Total Hours of Sleep: 6.00 Meal Information Percent of Breakfast Consumed: 90 Percent of Lunch Consumed: 0 Percent of Dinner Consumed: 25 Mental Status Exam During interview pt is: alert and oriented, cooperative (superficially) Appearance: appropriately dressed, appeared stated age, other (thin) Eye contact is: poor Motor behavior is: steady gait & station, no abnormal motor movements Speech: normal in rate, rhythm & volume (less delay in response, still doesn't elaborate) Affect: constricted Mood is: other ("OK") Thought process: concrete (less blocking) Thought content: other ( gives brief, vague answers, appears not fully engaged in process) Suicidal thought are: denied Homicidal thoughts are: denied Hallucinations: denies auditory, denies visual Cognition: language grossly intact, other (memory and attention are both impaired) Intelligence estimated to be: consistent with level of education Insight: limited Judgement: limited Impression Pt on a 303, taking scheduled medications. Patient tachycardiac on risperdal and so cross tapered to Abilify started on 12/14. Continued Inpatient Care Continued inpatient hospitalization is medically necessary for ongoing monitoring and safety. Plan (1) Unspecified psychosis 12/05-The patient is admitted to [facility] ([facility]) on q 15 min checks (behavioral with suicide precautions) for safety. The patient will participate in group, recreational and milieu therapies and will be offered additional individual and family sessions as clinically appropriate. Trial Risperdal M Tab 0.5mg qid PRN anxiety/agitation. -Risperdal M Tab 0.5mg qHS scheduled this hs. Patient agreeable following discussion of indication and need to monitor for metabolic side effects and TD, low dose given low BMI. -FLP & FBG drawn this AM all within nml limits. Triglycerides = 77; Total cholesterol = 104; LDL = 50; HDL = 39. FBG = 85. A private room remains medically necessary for the safety of self and others as presents this am as paranoid and behaviors have been somewhat unpredictable. Milagros prn dystonia if needed patient has given variable reports of whether she was/was not admitted to [facility], will obtain records if available 12/06 -remains guarded and withdrawn. Due to paranoia and level of disorganization of thought process with remain in medically necessary private room and continue Risperdal M tab 12/07 - remains guarded and paranoid and private room remains medically necessary. Will encourage to take Risperdal M tab to address paranoia. 12/08--remains paranoid and suspicious, feeling that someone here may want to hurt her. Continue medically necessary private room. --She is unwilling to rescind her 72 hour notice, and is not yet stable for discharge, so we'll proceed with a 302 involuntary commitment. --Increase risperidone to 1 mg daily at bedtime. --Get collateral information from her boyfriend, and schedule a family meeting when she is less psychotic. 12/09 --Psychosis continues, and she refused her risperidone last night, but took it this morning with significant staff encouragement. --Continue to encourage the patient to participate in treatment, but she is very guarded and isolative. --She is now on a 302 involuntary commitment, and will likely require a 303 commitment. Should she continue to refuse antipsychotic medication, and believe she would benefit from medications over objection, as she is grossly psychotic and unable to participate in assessments her treatment due to disordered thinking and behavior. --Attempted to contact her boyfriend for collateral information, but his mailbox was full and unable to leave a message; will ask staff to speak with him and attempting to get more information when he visits. 12/10/16 --Although the patient denies perceptual disturbances and voices no systematized delusional material, there is evidence that she remains psychotic and she appears to have little to no insight. Specifically, the patient tells me that she wants to know if there is "an ongoing investigation" about her, but then declines to say why she believes this may be true. We are continuing to attempt to reach the patient's boyfriend for collateral information. The picture is complicated by the patient's history of opioid dependence. She also appears to be minimizing her shins of her history. For example, she tells me that she was only "outpatient" at the [facility], denies any history of overdoses, and says that she only cut herself as a teenager in order to be allowed to change high school so that she could go the same high school as a friend who had been transferred to the other school because she, herself, had cut herself. We'll the patient appears to shown some improvement, I suspect that she is quite psychotic underneath and is at substantial risk for serious physical injury where she not to be provided active psychiatric treatment at the inpatient level of care. 12/11 - Continue Risperdal 2 mg. HS - Reality orientation 12/12--303 hearing completed/granted. 12/13 - Pt continues to display a flat affect. Although reporting mood as "good" her behaviors are incongruent with these statements. - Pt currently taking am PRN dose of 0.5mg Risperdal for the past two days, totalling 2.5mg. Suggest increasing total dosing to 3mg daily all given at bedtime to reduce risk of sedation that may come with increasing a dose in the morning. 12/14/16 - on review of record patient has had tachycardia since admission worsening today back to unacceptable levels despite maintaining hydration, no other s/sx of NMS or EPS/Dystonia at this time. Risperdal can be associated with tachycardia and she is not having a robust response to date despite several days at 2.5mg and significant elevated HR today in the high 130's/140's at rest. Will taper over 3days and simultaneously start abilify 5mg today and 10mg qday there after with 5mg po bid prn psychosis. r/b/se/a discussed with patient (see today's subjective note) 12/05/16 last metabolic tests reviewed. 12/15 - Patient received Abilify 10 mg this am. Tachycardia is resolving 12/16 - Continue Abilify - Patient has an appointment with her therapist, Kayla, at [facility] in [place] every Thursday. She will need to sign a release for [facility] if this has not been done already. And this appointment will need to be canceled for tomorrow. - Family meeting with boyfriend today. 12/17 - Improving slowly, continue aripiprazole, and check for need for PA/ins coverage. FM with BF went well and [facility] will bring her son to visit tomorrow. May be able to discharge tomorrow if continues to improve and tolerates visit well. Appetite is improving, and we are arranging aftercare and referring for psychiatric follow up. 12/18 - Abilify covered by insurance with a $1.20 co-pay. - [facility] visited but without the patient's son, and she was poorly able to tolerate this as she felt overwhelmed and appears to be hallucinating. Consider an increase in aripiprazole. - Oral intake improving with staff encouragement. - body worker exploring referral to the [facility] psych clinic for psych testing. 12/19 --psych clinic will not accept for testing, sw notes insurance barriers in community. Reviewed that this could be explored through [facility]. Testing should be postponed anyway until she is more recovered from her psychotic episode but team concerned about ultimate diagnosis of schizophrenia. Titrate Abilify to 15 mg po qam effective today. (2) Opiate dependence LYNNE completed for [facility] on admission, attempting to verify dosing and plan; unable to participate in brief intervention, in structured D&A program 12/08--patient has refused Suboxone the past 2 days, and if she continues to refuse it, we can discontinue it. 12/09--patient continues to refuse Suboxone, stating it makes her feel unwell. I will discontinue it. 12/11 - Clonidine 0.5 mg. Q 4 h prn opiate withdrawal - Kaopectate for diarrhea prn - Ibuprofen 800 mg. TID prn myalgias 12/15 -Patient requesting suboxone and complains of not feeling well. Outpatient dose had been verified with Dr. Lucia's office at time of admission by Carmine Saunders RN. Her outpatient dose was 8m g/2 mg 1.5 tabs once daily. Patient has not taken it for a week due to refusing it stating he made her feel sick and so it was discontinued. She starting asking for it yesterday. Patient understands that we will not be able to prescribe on discharge and agrees to restart at 8 mg /2 mg. She intended to continue Suboxone treatment when she is discharged. (3) Underweight 12/09 --Rule out eating disorder once patient is less psychotic and better able to participate in the interview. --Continue to encourage good by mouth intake, both food and fluids, as she has been refusing multiple meals, and has been hypertensive and tachycardic at times. 12/12--monitor weights (4) Tachycardia 12/05 -EKG ordered to evaluate tachycardia--may have been related to anxiety due to psychosis or 1 mg dose of Risperdal night previously -VS ordered q shift to monitor for changes 12/10/16 - the patient's pulse rate remains periodically elevated. She tells us that she is somewhat anxious and is experiencing withdrawal from opioids and nicotine. 12/12--better this am, BP may preclude additional prn clonidine 12/14/16 - tachycardia worsening as we increase dose of risperdal, will taper risperdal and monitor. (5) Hypokalemia 12/05-potassium levels this AM = 4.3 -continue with usual I&O monitoring (6) Nicotine dependence 12/05--patient unable to participate in brief intervention at this time. nicotine patch 12/10/16 - today, the patient was able to discuss her use of the nicotine patch, but says that she wants to "get out of here so [she] can get a cigarette. Discharge / Aftercare Planning Primary Care Physician: Name: Ghazala at [facility] Appointment Notes: As needed Psychiatrist: Name: [facility] Wing Amin Joey Date of Appointment: Dec 22, 2016 Time of Appointment: 10:00am Appointment Notes: [address] [facility] Therapist: Name: Kayla @ [facility] Date of Appointment: Dec 24, 2016 Time of Appointment: 11am Transplant Surgeon: Name: Barbara Babrour Appointment Notes: referral started, they will call you to schedule Specialist: Name: [facility] Date of Appointment: Dec 26, 2016 Time of Appointment: 12:00 Other: Name of Appointment #1: [facility] Date of Appointment #1: Dec 24, 2016 Time of Appointment #1: 9am Name of Appointment #2: [facility] for Psych Testing Appointment #2 Notes: Referral started, they will call you at home to schedule Visit Code E&M Code: 12743 Inventory Assets Strengths: supportive boyfriend, motivation to see son Needs: lack of family support, child currently in foster care Risk Factors Assessment : Yes Health problems: No Mental Health Diagnoses: No Substance use disorders: Yes Previous attempt: Yes Smoker: Yes Protective Factors Assessment Restorationism beliefs: Yes Employed: No Stable relationships: Yes Supportive family: No Data Vital Signs Last 24 Hrs: Date Time Temp Pulse Resp B/P (MAP) Pulse Ox O2 Delivery O2 Flow Rate FiO2 12/20/16 06:56 36.6 91 16 97/63 96 83/53 12/19/16 23:01 86 16 110/76 Meds Administered Last 24 Hrs: Meds Administered (Past 24Hrs) Medications (Trade) Dose Ordered Sig/Audrey Route Start Time Stop Time Status Last Admin Dose Admin Aripiprazole (Abilify Tab) 15 mg QAM PO 12/20/16 09:00 01/14/17 08:59 12/20/16 08:59 15 MG Aripiprazole (Abilify Tab) 5 mg ONE ONCE PO 12/19/16 12:45 12/19/16 13:01 DC 12/19/16 13:45 5 MG Problem Qualifiers (1) Opiate dependence: Substance use status: uncomplicated Qualified Codes: F11.20 - Opioid dependence, uncomplicated
[2016-12-20 14:42] VITALS: BP 109/74; PULSE 105; TEMP 36.5
[2016-12-20] MEDS: ARIPIprazole TAB 5 MG TAB PO PRN (16:34)
[2016-12-20] MEDS: BENZTROPINE MESYLATE 0.5 MG TAB PO PRN (19:02)
[2016-12-20 22:15] VITALS: BP 103/66; PULSE 73
[2016-12-21 06:56] VITALS: BP 98/66; PULSE 82
[2016-12-21] MEDS: ARIPIprazole TAB 15 MG TAB PO SCH (08:41)
[2016-12-21] MEDS: NICOTINE 21 MG/24 HR TDSY TD SCH (08:42)
[2016-12-21] MEDS: NICOTINE POLACRILEX 2 MG GUM MT PRN ×2 (08:42→11:03)
[2016-12-21] MEDS: BUPRENORPHINE/NALOXONE 8/2 MG TAB SL SCH (08:42)
[2016-12-21] MEDS: MAGNESIUM HYDROXIDE SUSP 30 ML UDC PO PRN (09:10)
[2016-12-21] MEDS ORDERED: NCR2 MT (10:25)
[2016-12-21] MEDS ORDERED: ABL15 PO ×2 (10:25→12:13)
[2016-12-21] MEDS ORDERED: NICO21DI4 TD (10:25)
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
== END 2016-12-21 12:05 | disposition home or self-care (01) | DRG 885 ==
LOC: C.EDB 16:12 → C.MHU 20:48
PROVIDERS: ADMIT Psychiatry & Neurology Child & Adolescent Psychiatry; ATTEND Psychiatry & Neurology Child & Adolescent Psychiatry
DX: F29 Unspecified psychosis not due to a substance or known physiological condition (principal); R45.851 Suicidal ideations; F11.20 Opioid dependence, uncomplicated; Z68.1 Body mass index [BMI] 19.9 or less, adult; T45.0X2A Poisoning by antiallergic and antiemetic drugs, intentional self-harm, initial encounter; E87.6 Hypokalemia; R63.6 Underweight; R00.0 Tachycardia, unspecified; F17.210 Nicotine dependence, cigarettes, uncomplicated; Z81.8 Family history of other mental and behavioral disorders; Z81.1 Family history of alcohol abuse and dependence; Z81.3 Family history of other psychoactive substance abuse and dependence

== ENCOUNTER → 2017-03-04 | Outpatient (CLI) | payer OTHER ==
[~2017-03-04] MED LIST changes: +ABL15 PO; -BUPR100T8 PO; +NCR2 MT; +NICO21DI4 TD
[2017-03-04 17:36] LABS: BASO % 0.3 %; BASO ABS # 0.03 K/uL (0-0.2); HEMATOCRIT 42.1 % (37-47); HEMOGLOBIN 14.6 g/dL (12.0-16.0); IG# 0.03 K/uL (0.00-0.02); LYMPH % 34.1 %; LYMPH ABS # 3.35 K/uL (1.2-3.4); MEAN CELL VOLUME 100.5 fL (80-100); MEAN CORPUSCULAR HEMOGLOBIN 34.8 pg (25-34); MEAN CORPUSCULAR HGB CONC 34.7 g/dl (32-36); MEAN PLATELET VOLUME 9.5 fL (7.4-10.4); MONO % 6.9 %; MONO ABS # 0.68 K/uL (0.11-0.59); NEUT % 57.4 %; NEUT ABS # 5.64 K/uL (1.4-6.5); PLATELET COUNT 333 K/uL (130-400); RED CELL DISTRIBUTION WIDTH CV 14.2 % (11.5-14.5); RED CELL DISTRIBUTION WIDTH SD 52.3 fL (36.4-46.3); WHITE BLOOD COUNT 9.83 K/uL (4.8-10.8)
[2017-03-04 17:58] LABS: TOTAL PROTEIN 7.7 gm/dl (6.4-8.2)
== END | disposition home or self-care (01) ==
LOC: C.LABPBG 14:40
PROVIDERS: ATTEND Family Medicine
DX: F11.20 Opioid dependence, uncomplicated (principal)

== ENCOUNTER 2017-06-09 19:00 | Inpatient (IN) | payer OTHER ==
[~2017-06-09] VITALS: Ht 160 cm; Wt 43.0 kg
--- NOTE | 2017-06-09 19:41 | EMERGENCY ROOM VISIT NOTE ---
History Report prepared by Jamar: Ion Keith Under the Supervision of: Dr. Theresa Chaves D.O. First contact with patient: 19:07 Chief Complaint: MENTAL HEALTH EVALUATION Stated Complaint: MENTAL HEALTH EVAL History of Present Illness The patient is a 26 year old female who presents to the Emergency Room for a mental health evaluation due to acting psychotic prior to arrival. Per the psych case liner, the patient was found to be stuffing paper in the toilet until it overflows, there was a bottle of open pills on the ground, the patient was perched on the window sill acting like a bird, and she was pacing around talking to people that were not in the room. The patient states that she currently lives alone, and she denies nay recent problems with anxiety or depression. She denies any headache, nausea, shortness of breath, and recent injury. The patient notes that she takes Suboxone daily for 2 years, and she states that she takes it since she used to use many different opiates by injecting, snorting, and with pills. She states that she smokes cigarettes, and she denies any alcohol or recreational drug uses. The patient states that she is unsure why the lens block gauger were called on her or why she is here. The patient states that she has never seen a counselor or therapist. Source of History: patient Onset: prior to arrival Position: other (global) Quality: other (acting psychotic) Associated Symptoms: No headache, No SOB, No nausea Review of Systems See HPI for pertinent positives & negatives. A total of 10 systems reviewed and were otherwise negative. Past Medical & Surgical Medical Problems: (1) Drug Abuse Nec-Unspec (2) Kidney infection (3) Nicotine dependence (4) Opiate dependence (5) Pneumonia (6) (7) Tobacco Use Disorder (8) Underweight Family History FHx: cancer FHx: gallbladder disease FHx: heart disease Hypertension Kidney disease Kidney stones Seizures Social History Smoking Status: Current Every Day Smoker Alcohol Use: none Drug Use: none Marital Status: in relationship Housing Status: lives with family Occupation Status: unemployed Current/Historical Medications Unable to Obtain Active Prescriptions or Reported Meds Allergies Coded Allergies: Amoxicillin (Verified Allergy, Unknown, UNKNOWN, 06/09/17) Tomato (Verified Allergy, Unknown, HIVES, 06/09/17) Physical Exam Vital Signs Date Time Temp Pulse Resp B/P (MAP) Pulse Ox O2 Delivery O2 Flow Rate FiO2 06/09/17 19:02 37.1 111 20 121/74 98 Room Air Physical Exam GENERAL: alert, a little withdrawn appearing, well nourished, no distress, non- toxic EYE EXAM: normal conjunctiva, PERRL and EOM's grossly intact OROPHARYNX: no exudate, no erythema, lips, buccal mucosa, and tongue normal and mucous membranes are moist NECK: supple, no nuchal rigidity, no adenopathy, non-tender LUNGS: Clear to auscultation. Normal chest wall mechanics HEART: no murmurs, S1 normal and S2 normal ABDOMEN: abdomen soft, non-tender, normo-active bowel sounds, no masses, no rebound or guarding. BACK: Back is symmetrical on inspection and there is no deformity, no midline tenderness, no CVA tenderness. SKIN: no rashes and no bruising UPPER EXTREMITIES: upper extremities are grossly normal. LOWER EXTREMITIES: No pitting edema. NEURO EXAM: Normal sensorium, cranial nerves II-XII grossly intact, normal speech, no gross weakness of arms, no gross weakness of legs. PSYCH: Patient denies anxiety, depression, and SI. Medical Decision & Procedures Laboratory Results 06/09/17 20:12 Red Blood Count 4.16, Mean Corpuscular Volume 94.5, Mean Corpuscular Hemoglobin 33.4, Mean Corpuscular Hemoglobin Concent 35.4, Mean Platelet Volume 9.2, Neutrophils (%) (Auto) 50.9, Lymphocytes (%) (Auto) 40.7, Monocytes (%) (Auto) 6.5, Eosinophils (%) (Auto) 1.2, Basophils (%) (Auto) 0.6, Neutrophils # (Auto) 3.53, Lymphocytes # (Auto) 2.82, Monocytes # (Auto) 0.45, Eosinophils # (Auto) 0.08, Basophils # (Auto) 0.04 06/09/17 20:12 Test 06/09/17 19:42 06/09/17 20:12 Urine Color YELLOW Urine Appearance CLEAR (CLEAR) Urine pH 5.5 (4.5-7.5) Urine Specific [place] 1.007 (1.000-1.030) Urine Protein NEG (NEG) Urine Glucose (UA) NEG (NEG) Urine Ketones NEG (NEG) Urine Occult Blood NEG (NEG) Urine Nitrite NEG (NEG) Urine Bilirubin NEG (NEG) Urine Urobilinogen NEG (NEG) Urine Leukocyte Esterase NEG (NEG) Urine Opiates Screen NEG (NEG) Urine Methadone, Qualitative NEG (NEG) Urine Barbiturates NEG (NEG) Urine Phencyclidine (PCP) Level NEG (NEG) Ur Amphetamine/Methamphetamine NEG (NEG) MDMA (Ecstasy) Screen NEG (NEG) Urine Benzodiazepines Screen NEG (NEG) Urine Cocaine Metabolite NEG (NEG) Urine Marijuana (THC) NEG (NEG) White Blood Count 6.93 K/uL (4.8-10.8) Red Blood Count 4.16 M/uL (4.2-5.4) Hemoglobin 13.9 g/dL (12.0-16.0) Hematocrit 39.3 % (37-47) Mean Corpuscular Volume 94.5 fL (80-100) Mean Corpuscular Hemoglobin 33.4 pg (25-34) Mean Corpuscular Hemoglobin Concent 35.4 g/dl (32-36) Platelet Count 261 K/uL (130-400) Mean Platelet Volume 9.2 fL (7.4-10.4) Neutrophils (%) (Auto) 50.9 % Lymphocytes (%) (Auto) 40.7 % Monocytes (%) (Auto) 6.5 % Eosinophils (%) (Auto) 1.2 % Basophils (%) (Auto) 0.6 % Neutrophils # (Auto) 3.53 K/uL (1.4-6.5) Lymphocytes # (Auto) 2.82 K/uL (1.2-3.4) Monocytes # (Auto) 0.45 K/uL (0.11-0.59) Eosinophils # (Auto) 0.08 K/uL (0-0.5) Basophils # (Auto) 0.04 K/uL (0-0.2) RDW Standard Deviation 42.0 fL (36.4-46.3) RDW Coefficient of Variation 12.3 % (11.5-14.5) Immature Granulocyte % (Auto) 0.1 % Immature Granulocyte # (Auto) 0.01 K/uL (0.00-0.02) Anion Gap 5.0 mmol/L (3-11) Est Creatinine Clear Calc Drug Dose 89.4 ml/min Estimated GFR () 143.0 Estimated GFR (Non- 123.4 BUN/Creatinine Ratio 6.3 (10-20) Calcium Level 8.6 mg/dl (8.5-10.1) Total Bilirubin 0.2 mg/dl (0.2-1) Direct Bilirubin 0.1 mg/dl (0-0.2) Aspartate Amino Transf (AST/SGOT) 14 U/L (15-37) Alanine Aminotransferase (ALT/SGPT) 14 U/L (12-78) Alkaline Phosphatase 88 U/L (45-117) Total Protein 7.6 gm/dl (6.4-8.2) Albumin 3.9 gm/dl (3.4-5.0) Thyroid Stimulating Hormone (TSH) 1.120 uIu/ml (0.300-4.500) Human Chorionic Gonadotropin, Qual NEG (NEG) Salicylates Level 4.2 mg/dl (2.8-20) Acetaminophen Level < 2 ug/ml (10-30) Ethyl Alcohol mg/dL < 3.0 mg/dl (0-3) Laboratory results per my review. Medications Administered Medications (Trade) Dose Ordered Sig/Audrey Route Start Time Stop Time Status Last Admin Dose Admin Nicotine (Nicoderm Cq 21MG Patch) 1 patch NOW ONCE TD 06/09/17 22:15 06/09/17 22:16 DC 06/09/17 22:21 1 PATCH Haloperidol (Haldol Tab) 5 mg NOW STAT PO 06/10/17 00:17 06/10/17 00:18 DC 06/10/17 00:31 5 MG ED Course 1906: The patient was evaluated in room A6. A complete history and physical exam was performed. 2035: I reevaluated the patient and discussed the treatment plan with her. 2335: Pt seen and evaluated by mental health. Will be admitted to . Medical Decision Differential diagnosis: Etiologies such as mood disorder, infection, hypoglycemia, electrolyte abnormalities, cardiac sources, intracerebral event, toxicologic, neurologic, as well as others were entertained. Medication Reconcilliation Current Medication List: was personally reviewed by me Blood Pressure Screening Patient's blood pressure: Normal blood pressure Impression Primary Impression: Unspecified psychosis Additional Impression: Tobacco abuse Scribe Attestation The scribe's documentation has been prepared under my direction and personally reviewed by me in its entirety. I confirm that the note above accurately reflects all work, treatment, procedures, and medical decision making performed by me. Departure Information Dispostion Mental Health Acute Care Prescriptions Unable to Obtain Active Prescriptions or Reported Meds Referrals Ghazala Louie PA-C (PCP) Patient Instructions My [facility] Problem Qualifiers
[2017-06-09] MEDS ORDERED: LORAZEPAM 2 MG/ML 1 ML VIAL IM STA (20:40)
[2017-06-09 21:09] LABS: BASO % 0.6 %; BASO ABS # 0.04 K/uL (0-0.2); EOS % 1.2 %; EOS ABS # 0.08 K/uL (0-0.5); HEMATOCRIT 39.3 % (37-47); HEMOGLOBIN 13.9 g/dL (12.0-16.0); IG# 0.01 K/uL (0.00-0.02); LYMPH % 40.7 %; LYMPH ABS # 2.82 K/uL (1.2-3.4); MEAN CELL VOLUME 94.5 fL (80-100); MEAN CORPUSCULAR HEMOGLOBIN 33.4 pg (25-34); MEAN CORPUSCULAR HGB CONC 35.4 g/dl (32-36); MEAN PLATELET VOLUME 9.2 fL (7.4-10.4); MONO % 6.5 %; MONO ABS # 0.45 K/uL (0.11-0.59); NEUT % 50.9 %; NEUT ABS # 3.53 K/uL (1.4-6.5); PLATELET COUNT 261 K/uL (130-400); RED CELL DISTRIBUTION WIDTH CV 12.3 % (11.5-14.5); WHITE BLOOD COUNT 6.93 K/uL (4.8-10.8)
[2017-06-09 21:26] LABS: ALBUMIN 3.9 gm/dl (3.4-5.0); CALCIUM 8.6 mg/dl (8.5-10.1); CREATININE 0.65 mg/dl (0.60-1.20); POTASSIUM 3.3 mmol/L (3.5-5.1)
[2017-06-09 21:36] LABS: TOTAL PROTEIN 7.6 gm/dl (6.4-8.2)
[2017-06-09] MEDS ORDERED: NICOTINE 21 MG/24 HR TDSY TD ONE (22:15)
[2017-06-09] MEDS ORDERED: NICOTINE POLACRILEX 2 MG GUM MT PRN (22:15)
[2017-06-10] MEDS ORDERED: HALOPERIDOL 5 MG TAB PO STA (00:17)
[2017-06-10] MEDS ORDERED: NURSING VERBAL MED ORDER ONE ×3 (00:30→18:45)
[2017-06-10 00:41] VITALS: O2SAT 98
[2017-06-10 01:13] VITALS: BP 120/73; PULSE 81; TEMP 37.1; BMI 16.2
[2017-06-10] MEDS ORDERED: BISMUTH SUBSALICYLATE PER ML OMNICELL CHARGE PO PRN (01:30)
[2017-06-10] MEDS ORDERED: hydrOXYzine HCL 25 MG TAB PO PRN (01:30)
[2017-06-10] MEDS ORDERED: SODIUM CHLORIDE 0.65% NA SOLN 45 ML (OCEAN) PRN (01:30)
[2017-06-10] MEDS ORDERED: MAGNESIUM HYDROXIDE SUSP 30 ML UDC PO PRN (01:30)
[2017-06-10] MEDS ORDERED: HALOPERIDOL 5 MG TAB PO PRN ×2 (01:30→18:45)
[2017-06-10] MEDS ORDERED: ALUMINUM/MAGNESIUM SUSP 30 ML UDC PO PRN (01:30)
[2017-06-10 06:47] VITALS: BP_SYST 105; BP_SYST 98; BP_DIAS 62; BP_DIAS 74; PULSE 103; PULSE 81; TEMP 36.5
[2017-06-10 09:40] VITALS: Ht 160 cm; Wt 43.0 kg
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
[2017-06-10] MEDS ORDERED: ARIPIprazole TAB 5 MG TAB PO ONE (11:15)
[2017-06-10 18:42] VITALS: BP 110/65; PULSE 80; TEMP 36.4
[2017-06-10] MEDS ORDERED: DIPHENOXYLATE/ATROPINE 2.5/0.025MG TAB PO PRN (18:45)
[2017-06-10] MEDS ORDERED: HALOPERIDOL LACTATE 5 MG/ML 1 ML VIAL IM PRN ×2 (19:00)
[2017-06-10] MEDS ORDERED: NICOTINE 21 MG/24 HR TDSY TD ONE (19:00)
[2017-06-10] MEDS ORDERED: HALOPERIDOL 5 MG TAB ONE (19:14)
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
[2017-06-10] MEDS: CLONIDINE HCL 0.1 MG TAB PO SCH (19:21)
[2017-06-10] MEDS: NICOTINE POLACRILEX 2 MG GUM MT PRN (19:59)
[2017-06-10] MEDS: ACETAMINOPHEN 325 MG TAB PO PRN (20:07)
[2017-06-11] MEDS: hydrOXYzine HCL 25 MG TAB PO PRN (01:11)
[2017-06-11] MEDS: ACETAMINOPHEN 325 MG TAB PO PRN (01:12)
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
[2017-06-11 08:27] VITALS: BP 106/70; PULSE 96
[2017-06-11] MEDS ORDERED: OLANZAPINE 10 MG/2.1 ML SDV IM PRN (08:30)
[2017-06-11] MEDS ORDERED: ARIPIprazole TAB 5 MG TAB PO SCH (09:00)
[2017-06-11] MEDS: OLANZAPINE ZYDIS 5 MG ORALLY DIS. TAB PO SCH ×2 (09:16→20:21)
[2017-06-11] MEDS: NICOTINE 21 MG/24 HR TDSY TD SCH (09:16)
[2017-06-11] MEDS: CLONIDINE HCL 0.1 MG TAB PO SCH ×4 (09:16→20:21)
[2017-06-11] MEDS: NICOTINE POLACRILEX 2 MG GUM MT PRN ×2 (09:29→15:16)
[2017-06-11 13:02] VITALS: BP 109/74; PULSE 75
[2017-06-11] MEDS: HALOPERIDOL 5 MG TAB PO PRN ×2 (13:05→20:22)
[2017-06-11 16:10] VITALS: BP 108/74; PULSE 120; TEMP 36.8
[2017-06-11 20:00] VITALS: BP 111/75; PULSE 120; TEMP 36.1
[2017-06-11] MEDS: IBUPROFEN 800 MG TAB PO PRN (20:22)
[2017-06-12 06:19] VITALS: BP_SYST 88; BP_SYST 98; BP_DIAS 59; BP_DIAS 68; PULSE 69; PULSE 81; TEMP 36.7
[2017-06-12 08:57] VITALS: BP 86/58; PULSE 73
[2017-06-12] MEDS: CLONIDINE HCL 0.1 MG TAB PO SCH ×4 (08:57→20:20)
[2017-06-12] MEDS: OLANZAPINE ZYDIS 5 MG ORALLY DIS. TAB PO SCH (08:57)
[2017-06-12] MEDS: NICOTINE 21 MG/24 HR TDSY TD SCH (08:59)
[2017-06-12] MEDS: NICOTINE POLACRILEX 2 MG GUM MT PRN (09:08)
[2017-06-12] MEDS: IBUPROFEN 600 MG TAB PO PRN ×2 (09:24→21:12)
[2017-06-12] MEDS: HALOPERIDOL 5 MG TAB PO PRN ×2 (10:23→21:13)
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
[2017-06-12] MEDS ORDERED: BENZTROPINE MESYLATE 1 MG TAB PO STA (14:44)
[2017-06-12] MEDS ORDERED: BENZTROPINE MESYLATE 0.5 MG TAB PO PRN (14:45)
[2017-06-12 15:15] VITALS: BP 105/72; PULSE 116
[2017-06-12] MEDS: CLONIDINE HCL 0.1 MG TAB PO PRN (15:15)
[2017-06-12 16:00] VITALS: BP 114/72; PULSE 109
[2017-06-12 20:22] VITALS: BP 108/69; PULSE 66
[2017-06-12] MEDS: OLANZAPINE ZYDIS 10 MG ORALLY DIS. TAB PO SCH (21:11)
[2017-06-12] MEDS: BENZTROPINE MESYLATE 1 MG TAB PO SCH (21:11)
[2017-06-12] MEDS: hydrOXYzine HCL 25 MG TAB PO PRN (21:12)
[2017-06-13] VITALS (7 sets, daily range): BP systolic 85–107; BP diastolic 46–69; PULSE 48–67; TEMP 37
[2017-06-13] MEDS: ACETAMINOPHEN 325 MG TAB PO PRN (02:37)
[2017-06-13] MEDS: CLONIDINE HCL 0.1 MG TAB PO SCH ×4 (08:00→19:41)
[2017-06-13] MEDS: BENZTROPINE MESYLATE 1 MG TAB PO SCH (08:01)
[2017-06-13] MEDS: OLANZAPINE ZYDIS 5 MG ORALLY DIS. TAB PO SCH (08:01)
[2017-06-13] MEDS: NICOTINE 21 MG/24 HR TDSY TD SCH (08:04)
[2017-06-13 08:18] LABS: CALCIUM 8.8 mg/dl (8.5-10.1); CREATININE 0.65 mg/dl (0.60-1.20)
[2017-06-13] MEDS: IBUPROFEN 800 MG TAB PO PRN ×2 (09:43→23:38)
[2017-06-13] MEDS: NICOTINE POLACRILEX 2 MG GUM MT PRN ×2 (10:53→17:57)
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
[2017-06-13] MEDS ORDERED: HALOPERIDOL 5 MG TAB PO PRN (15:00)
[2017-06-13] MEDS ORDERED: HALOPERIDOL LACTATE 5 MG/ML 1 ML VIAL IM PRN (15:00)
[2017-06-13] MEDS: OLANZAPINE ZYDIS 10 MG ORALLY DIS. TAB PO SCH (20:41)
[2017-06-13] MEDS: OLANZAPINE ZYDIS 5 MG ORALLY DIS. TAB PO PRN (22:22)
[2017-06-14] MEDS: CLONIDINE HCL 0.1 MG TAB PO SCH ×5 (08:00→19:34)
[2017-06-14] MEDS: NICOTINE 21 MG/24 HR TDSY TD SCH (08:54)
[2017-06-14] MEDS: OLANZAPINE ZYDIS 5 MG ORALLY DIS. TAB PO SCH (08:54)
[2017-06-14] MEDS: IBUPROFEN 800 MG TAB PO PRN ×3 (08:55→22:05)
[2017-06-14 09:19] VITALS: BP 92/63; PULSE 67
[2017-06-14 10:00] VITALS: BP 106/67; PULSE 65
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
[2017-06-14] MEDS ORDERED: DOCUSATE SODIUM 100 MG CAP PO ONE (11:21)
[2017-06-14 12:58] VITALS: BP 107/69; PULSE 58
[2017-06-14] MEDS: OLANZAPINE ZYDIS 5 MG ORALLY DIS. TAB PO PRN (16:20)
[2017-06-14] MEDS: OLANZAPINE ZYDIS 10 MG ORALLY DIS. TAB PO SCH (21:04)
[2017-06-14] MEDS: DOCUSATE SODIUM 100 MG CAP PO SCH (21:04)
[2017-06-15] MEDS: ACETAMINOPHEN 325 MG TAB PO PRN ×4 (02:39→22:53)
[2017-06-15 06:33] VITALS: BP_SYST 101; BP_SYST 87; BP_DIAS 60; BP_DIAS 69; PULSE 105; PULSE 84; TEMP 36.5
[2017-06-15] MEDS: IBUPROFEN 800 MG TAB PO PRN ×3 (07:02→20:20)
[2017-06-15] MEDS: NICOTINE POLACRILEX 2 MG GUM MT PRN (07:42)
[2017-06-15] MEDS: DOCUSATE SODIUM 100 MG CAP PO SCH ×2 (07:43→21:25)
[2017-06-15] MEDS: OLANZAPINE ZYDIS 5 MG ORALLY DIS. TAB PO SCH (07:43)
[2017-06-15] MEDS: NICOTINE 21 MG/24 HR TDSY TD SCH (07:46)
[2017-06-15 08:36] VITALS: BP 106/67; PULSE 65
[2017-06-15] MEDS: CLONIDINE HCL 0.1 MG TAB PO SCH ×4 (08:36→20:04)
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
[2017-06-15 12:26] VITALS: BP 106/70; PULSE 87
[2017-06-15 16:11] VITALS: BP 82/52; PULSE 70
[2017-06-15 20:05] VITALS: BP 111/73; PULSE 75
[2017-06-15] MEDS: OLANZAPINE ZYDIS 10 MG ORALLY DIS. TAB PO SCH (21:26)
[2017-06-16] MEDS: IBUPROFEN 800 MG TAB PO PRN ×3 (02:36→18:09)
[2017-06-16 07:03] VITALS: BP_SYST 105; BP_SYST 108; BP_DIAS 65; BP_DIAS 71; PULSE 58; PULSE 66; TEMP 36.8
[2017-06-16] MEDS: CLONIDINE HCL 0.1 MG TAB PO SCH ×2 (07:24→21:24)
[2017-06-16] MEDS: NICOTINE 21 MG/24 HR TDSY TD SCH (07:25)
[2017-06-16] MEDS: DOCUSATE SODIUM 100 MG CAP PO SCH ×2 (07:25→21:23)
[2017-06-16] MEDS: OLANZAPINE ZYDIS 5 MG ORALLY DIS. TAB PO SCH (07:25)
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
[2017-06-16] MEDS: NICOTINE POLACRILEX 2 MG GUM MT PRN ×2 (10:35→18:50)
[2017-06-16] MEDS: ACETAMINOPHEN 325 MG TAB PO PRN ×2 (12:06→23:04)
[2017-06-16] MEDS: CLONIDINE HCL 0.1 MG TAB PO PRN (12:09)
[2017-06-16 12:10] VITALS: BP 112/72; PULSE 78
[2017-06-16] MEDS: OLANZAPINE ZYDIS 10 MG ORALLY DIS. TAB PO SCH (21:22)
[2017-06-16 21:31] VITALS: BP 97/63; PULSE 64
[2017-06-17] MEDS: IBUPROFEN 800 MG TAB PO PRN ×3 (01:52→16:45)
[2017-06-17] MEDS: CLONIDINE HCL 0.1 MG TAB PO PRN (02:35)
[2017-06-17] MEDS: ACETAMINOPHEN 325 MG TAB PO PRN ×4 (04:42→22:55)
[2017-06-17 06:45] VITALS: BP_SYST 112; BP_DIAS 73; BP_DIAS 74; PULSE 57; PULSE 67; TEMP 36.6
[2017-06-17] MEDS: CLONIDINE HCL 0.1 MG TAB PO SCH ×2 (09:00→20:42)
[2017-06-17] MEDS: OLANZAPINE ZYDIS 5 MG ORALLY DIS. TAB PO SCH (09:18)
[2017-06-17] MEDS: DOCUSATE SODIUM 100 MG CAP PO SCH ×2 (09:18→20:42)
[2017-06-17] MEDS: NICOTINE 21 MG/24 HR TDSY TD SCH ×2 (09:18→17:56)
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
[2017-06-17] MEDS: NICOTINE POLACRILEX 2 MG GUM MT PRN (12:08)
[2017-06-17 13:50] VITALS: BP 109/68; PULSE 71
[2017-06-17] MEDS: OLANZAPINE ZYDIS 10 MG ORALLY DIS. TAB PO SCH (20:43)
[2017-06-18] MEDS: IBUPROFEN 800 MG TAB PO PRN (01:41)
[2017-06-18] MEDS: ACETAMINOPHEN 325 MG TAB PO PRN ×3 (06:12→23:48)
[2017-06-18 06:54] VITALS: BP_SYST 105; BP_SYST 122; BP_DIAS 67; BP_DIAS 78; PULSE 59; PULSE 74; TEMP 36.8
[2017-06-18 09:30] VITALS: BP 117/74; PULSE 67
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
[2017-06-18] MEDS: CLONIDINE HCL 0.1 MG TAB PO SCH ×2 (10:09→21:31)
[2017-06-18] MEDS: DOCUSATE SODIUM 100 MG CAP PO SCH ×2 (10:09→21:28)
[2017-06-18] MEDS: OLANZAPINE ZYDIS 5 MG ORALLY DIS. TAB PO SCH (10:09)
[2017-06-18] MEDS: NICOTINE 21 MG/24 HR TDSY TD SCH (10:10)
[2017-06-18] MEDS: CLONIDINE HCL 0.1 MG TAB PO PRN ×2 (14:08→17:14)
[2017-06-18 17:15] VITALS: BP 108/74; PULSE 76
[2017-06-18] MEDS: OLANZAPINE ZYDIS 10 MG ORALLY DIS. TAB PO SCH (21:28)
[2017-06-18 21:33] VITALS: BP 105/66; PULSE 74
[2017-06-19] MEDS: IBUPROFEN 800 MG TAB PO PRN ×3 (02:09→20:20)
[2017-06-19] MEDS: ACETAMINOPHEN 325 MG TAB PO PRN ×3 (05:57→14:43)
[2017-06-19 06:30] VITALS: BP_SYST 105; BP_SYST 106; BP_DIAS 68; BP_DIAS 72; PULSE 66; PULSE 79; TEMP 36.5
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
[2017-06-19] MEDS: DOCUSATE SODIUM 100 MG CAP PO SCH ×2 (10:01→20:59)
[2017-06-19] MEDS: OLANZAPINE ZYDIS 5 MG ORALLY DIS. TAB PO SCH (10:01)
[2017-06-19] MEDS: NICOTINE 21 MG/24 HR TDSY TD SCH (10:01)
[2017-06-19] MEDS: CLONIDINE HCL 0.1 MG TAB PO SCH ×2 (10:01→22:00)
--- NOTE | 2017-06-19 10:45 | Psych Management Progress Note ---
Psychiatry Miscellaneous Date of Service: June 19, 2017. Patient seen, MS assessed. Rates mood as "fine". Encouraged cooperation with care and treatment plan as outlined by allied health prescriber. Better hygiene that last contact, no delay in response, still lacking insight. Staff to weigh patient today as PO remains poor.
[2017-06-19 13:04] VITALS: BP 105/70; PULSE 74
[2017-06-19] MEDS: CLONIDINE HCL 0.1 MG TAB PO PRN ×2 (13:06→18:24)
[2017-06-19] MEDS: TROLAMINE SALICYLATE 10% CRM 255 APPLN/85 GM TUBE EXT PRN ×2 (13:07→20:20)
[2017-06-19 18:27] VITALS: BP 110/61; PULSE 91
[2017-06-19] MEDS: OLANZAPINE ZYDIS 10 MG ORALLY DIS. TAB PO SCH (20:59)
[2017-06-19 22:36] VITALS: BP 97/64; PULSE 97
[2017-06-19 23:58] VITALS: BP_SYST 108; BP_SYST 112; BP_DIAS 76; BP_DIAS 77; PULSE 68; PULSE 97
[2017-06-20] MEDS: CLONIDINE HCL 0.1 MG TAB PO SCH ×2 (00:02→20:40)
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
[2017-06-20] MEDS: NICOTINE 21 MG/24 HR TDSY TD SCH (10:07)
[2017-06-20] MEDS: OLANZAPINE ZYDIS 5 MG ORALLY DIS. TAB PO SCH (10:07)
[2017-06-20] MEDS: DOCUSATE SODIUM 100 MG CAP PO SCH ×2 (10:08→20:40)
[2017-06-20 10:13] VITALS: BP 115/78; PULSE 86
[2017-06-20] MEDS: CLONIDINE HCL 0.1 MG TAB PO PRN ×2 (10:19→14:09)
[2017-06-20] MEDS: IBUPROFEN 800 MG TAB PO PRN ×2 (10:24→15:34)
[2017-06-20] MEDS: ACETAMINOPHEN 325 MG TAB PO PRN ×2 (12:42→17:53)
[2017-06-20] MEDS: NICOTINE POLACRILEX 2 MG GUM MT PRN ×3 (14:08→18:22)
[2017-06-20 14:09] VITALS: BP 113/70; PULSE 87
[2017-06-20] MEDS: TROLAMINE SALICYLATE 10% CRM 255 APPLN/85 GM TUBE EXT PRN (16:40)
[2017-06-20 20:28] VITALS: BP 106/69; PULSE 77
[2017-06-20] MEDS: OLANZAPINE ZYDIS 10 MG ORALLY DIS. TAB PO SCH (20:41)
[2017-06-21] MEDS: ACETAMINOPHEN 325 MG TAB PO PRN ×3 (05:39→14:49)
[2017-06-21] MEDS: NICOTINE POLACRILEX 2 MG GUM MT PRN ×5 (07:47→21:36)
[2017-06-21] MEDS: NICOTINE 21 MG/24 HR TDSY TD SCH (08:38)
[2017-06-21] MEDS: OLANZAPINE ZYDIS 5 MG ORALLY DIS. TAB PO SCH (08:38)
[2017-06-21] MEDS: CEROVITE ADV FORMULA TAB PO SCH (08:38)
[2017-06-21] MEDS: DOCUSATE SODIUM 100 MG CAP PO SCH ×2 (08:38→20:59)
[2017-06-21 09:19] VITALS: BP 107/66; PULSE 81
[2017-06-21] MEDS: CLONIDINE HCL 0.1 MG TAB PO PRN (09:20)
[2017-06-21] MEDS: IBUPROFEN 800 MG TAB PO PRN (09:20)
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
[2017-06-21] MEDS: OLANZAPINE ZYDIS 10 MG ORALLY DIS. TAB PO SCH (21:00)
[2017-06-22] MEDS: DOCUSATE SODIUM 100 MG CAP PO SCH (08:19)
[2017-06-22] MEDS: OLANZAPINE ZYDIS 5 MG ORALLY DIS. TAB PO SCH (08:19)
[2017-06-22] MEDS: CEROVITE ADV FORMULA TAB PO SCH (08:19)
[2017-06-22] MEDS: NICOTINE 21 MG/24 HR TDSY TD SCH (08:20)
[2017-06-22] MEDS ORDERED: NICO21DI4 TD (09:15)
[2017-06-22] MEDS ORDERED: OLAN10TA11 PO (09:15)
--- NOTE | 2017-06-22 09:56 | Discharge Instructions ---
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 Calc Drug Dose 89.4 89.4 Estimated GFR () 143.0 143.0 Estimated GFR (Non- 123.4 123.4 BUN/Creatinine Ratio 6.3 13.0 Random Glucose 66 86 Calcium Level 8.6 8.8 Total Bilirubin 0.2 Direct Bilirubin 0.1 Aspartate Amino Transferase (AST) 14 Alanine Aminotransferase (ALT) 14 Alkaline Phosphatase 88 Total Protein 7.6 Albumin 3.9 Thyroid Stimulating Hormone (TSH) 1.120 Human Chorionic Gonadotropin, Qual NEG Salicylates Level 4.2 Acetaminophen Level < 2 Ethyl Alcohol mg/dL < 3.0 Fasting Glucose 86 Triglycerides Level 86 Cholesterol Level 131 HDL Cholesterol 44 LDL Cholesterol, Calculated 70 VLDL Cholesterol, Calculated 17 Cholesterol/HDL Ratio 3.0 Tobacco Cessation at Discharge Smoking Status: Current Every Day Smoker FDA approved Prescription: nicotine replacement product (Follow-up with psychiatrist and therapist.)
== END 2017-06-22 11:25 | disposition home or self-care (01) | DRG 885 ==
LOC: C.EDB 19:01 → C.MHU 06-10 00:35
PROVIDERS: ADMIT Psychiatry & Neurology Psychiatry; ATTEND Psychiatry & Neurology Psychiatry
DX: F29 Unspecified psychosis not due to a substance or known physiological condition (principal); F11.20 Opioid dependence, uncomplicated; Z68.1 Body mass index [BMI] 19.9 or less, adult; F17.200 Nicotine dependence, unspecified, uncomplicated; E87.6 Hypokalemia; R63.6 Underweight; Z88.1 Allergy status to other antibiotic agents; Z81.8 Family history of other mental and behavioral disorders; Z79.899 Other long term (current) drug therapy

== ENCOUNTER 2017-09-18 21:45 | Inpatient (IN) | payer OTHER ==
[~2017-09-18] VITALS: Ht 160 cm; Wt 49.7 kg
[~2017-09-18 21:45] MED LIST changes: -ABL15 PO; -BUPR8MIS SL; -NCR2 MT
[2017-09-18] MEDS ORDERED: SODIUM CHLORIDE 0.9% 1000ML 1,000 ML IV STA (21:55)
[2017-09-18 22:16] LABS: HEMOGLOBIN 13.6 g/dL (12.0-16.0); MEAN CELL VOLUME 98.5 fL (80-100); MEAN CORPUSCULAR HEMOGLOBIN 34.3 pg (25-34); MEAN CORPUSCULAR HGB CONC 34.9 g/dl (32-36); MEAN PLATELET VOLUME 9.6 fL (7.4-10.4); PLATELET COUNT 307 K/uL (130-400); RED CELL DISTRIBUTION WIDTH CV 13.1 % (11.5-14.5); RED CELL DISTRIBUTION WIDTH SD 47.1 fL (36.4-46.3); WHITE BLOOD COUNT 8.31 K/uL (4.8-10.8)
[2017-09-18] MEDS ORDERED: BUPR1SUB23 PO (22:24)
[2017-09-18 22:41] LABS: ALBUMIN 3.6 gm/dl (3.4-5.0); ALKALINE PHOSPHATASE 77 U/L (45-117); ALT/SGPT 11 U/L (12-78); AST/SGOT 10 U/L (15-37); BLOOD UREA NITROGEN 14 mg/dl (7-18); CALCIUM 8.1 mg/dl (8.5-10.1); CARBON DIOXIDE 26 mmol/L (21-32); CREATININE 0.86 mg/dl (0.60-1.20); GLUCOSE 79 mg/dl (70-99); POTASSIUM 3.7 mmol/L (3.5-5.1); SODIUM 141 mmol/L (136-145); TOTAL PROTEIN 6.8 gm/dl (6.4-8.2)
[2017-09-18] MEDS ORDERED: NICOTINE 14 MG/24 HR TDSY TD STA (22:51)
--- NOTE | 2017-09-18 23:51 | EMERGENCY ROOM VISIT NOTE ---
History Report prepared by Bennyibpeng: Ibrahima May Under the Supervision of: Dr. Zuhair Ortiz M.D. First contact with patient: 21:46 Chief Complaint: OVERDOSE (INTENTIONAL) Stated Complaint: MED OVERDOSE/ VALIUM History of Present Illness The patient is a 26 year old female who presents to the Emergency Room with complaints of overdose. Per EMS x1 hour ago patient took 45 (10mg) Valium that had and belonged to her father. The father planned to throw the medication away, when the patient decided to take them all. The patient also may have taken Ibuprofen, but they cannot confirm this. Per police patient has a history of substance abuse of Meth and Heroin and they know this patient well. Per EMS the patient also crushed and snorted a "green pill" earlier today but they are unsure what it was. When EMS arrived patient was hypotensive with a systolic pressure in the 80s. She received a 600mL bolus of fluids in the field and it increased to 120 systolic. They note the patient is maintaining her airway but is lethargic. History is somewhat limited due to poor patient cooperation. Source of History: police, EMS History Limited By: poor cooperation Onset: x1 hour ago Symptom Intensity: moderate Timing: constant Review of Systems See HPI for pertinent positives & negatives. Complete ROS limited due to poor cooperation. Psychiatric: + substance abuse Past Medical & Surgical Medical Problems: (1) Drug Abuse Nec-Unspec (2) Hypokalemia (3) Kidney infection (4) Nicotine dependence (5) Opiate dependence (6) Opiate withdrawal (7) Pneumonia (8) (9) Tobacco Use Disorder (10) Underweight Family History FHx: cancer FHx: gallbladder disease FHx: heart disease Hypertension Kidney disease Kidney stones Seizures Social History Smoking Status: Current Every Day Smoker Alcohol Use: none Drug Use: none Marital Status: in relationship Housing Status: lives with family Occupation Status: unemployed Current/Historical Medications Scheduled Buprenorphine Hcl-Naloxone Hcl (Suboxone 8-2 Mg), 2 TAB PO DAILY Allergies Coded Allergies: Amoxicillin (Verified Allergy, Unknown, UNKNOWN, 09/18/17) Tomato (Verified Allergy, Unknown, HIVES, 09/18/17) Physical Exam Vital Signs Date Time Temp Pulse Resp B/P (MAP) Pulse Ox O2 Delivery O2 Flow Rate FiO2 09/18/17 23:25 91 26 100 09/18/17 23:20 85 22 94/59 98 09/18/17 23:15 85 20 98 09/18/17 23:12 97/60 09/18/17 23:10 81 28 09/18/17 23:05 89 24 09/18/17 23:01 80/49 09/18/17 23:00 85 27 09/18/17 22:55 82 28 74/46 09/18/17 22:52 80/48 09/18/17 22:50 87 17 09/18/17 22:45 88 16 79/45 09/18/17 22:27 83 26 90/63 94 Room Air 09/18/17 22:27 85 09/18/17 21:56 95 Room Air 09/18/17 21:56 36.5 104 30 93/51 95 Room Air 09/18/17 21:50 101 Physical Exam Constitutional: Vital signs reviewed. Hypotensive Eyes: Pupils are equal round reactive to light. Conjunctiva are noninjected. Pupils are not pinpoint. ENT: Pharynx is clear without erythema or exudate. Mucous membranes are moist. Neck supple without meningeal signs. Respiratory: Clear to auscultation bilaterally. Breath sounds are equal bilaterally. Cardiovascular: Regular rate and rhythm. No rubs or gallops. GI: Soft, nondistended and nontender. Bowel sounds are present. Musculoskeletal: No peripheral edema. No lower extremity tenderness. Integumentary: No cyanosis. Neurological: The patient is awake and alert. No focal deficits. Psychiatric: Unable to assess. Medical Decision & Procedures Laboratory Results 09/18/17 21:24 09/18/17 21:24 Test 09/18/17 21:24 09/18/17 21:58 Red Blood Count 3.96 M/uL (4.2-5.4) Mean Corpuscular Volume 98.5 fL (80-100) Mean Corpuscular Hemoglobin 34.3 pg (25-34) Mean Corpuscular Hemoglobin Concent 34.9 g/dl (32-36) RDW Standard Deviation 47.1 fL (36.4-46.3) RDW Coefficient of Variation 13.1 % (11.5-14.5) Mean Platelet Volume 9.6 fL (7.4-10.4) Anion Gap 8.0 mmol/L (3-11) Est Creatinine Clear Calc Drug Dose 82.7 ml/min Estimated GFR () 108.8 Estimated GFR (Non- 93.9 BUN/Creatinine Ratio 15.9 (10-20) Calcium Level 8.1 mg/dl (8.5-10.1) Total Bilirubin 0.2 mg/dl (0.2-1) Direct Bilirubin < 0.1 mg/dl (0-0.2) Aspartate Amino Transf (AST/SGOT) 10 U/L (15-37) Alanine Aminotransferase (ALT/SGPT) 11 U/L (12-78) Alkaline Phosphatase 77 U/L (45-117) Total Protein 6.8 gm/dl (6.4-8.2) Albumin 3.6 gm/dl (3.4-5.0) Thyroid Stimulating Hormone (TSH) 0.292 uIu/ml (0.300-4.500) Salicylates Level 2.5 mg/dl (2.8-20) Acetaminophen Level < 2 ug/ml (10-30) Ethyl Alcohol mg/dL < 3.0 mg/dl (0-3) Medications Administered Medications (Trade) Dose Ordered Sig/Audrey Route Start Time Stop Time Status Last Admin Dose Admin Sodium Chloride 1,000 ml @ 999 mls/hr Q1H1M STAT IV 09/18/17 21:55 09/18/17 22:55 DC 09/18/17 21:55 999 MLS/HR ECG Per My Interpretation Indication: other (overdose) Rate (beats per minute): 89 Rhythm: normal sinus Findings: other (no QTC Prolongation, QRS 88ms) ED Course Recheck: 2235: Patient's blood pressure is stable. She is asking for food and a nicotine patch. 225: Patient pulled out her IV so a new one will be placed. Medical Decision This is a 26-year-old female presents with an intentional benzodiazepine overdose and hypotension. I did perform a limited focused review of portions of the patient's old chart on the electronic medical record. In June the patient was admitted for Psychosis. Review of prior visit shows a tendency towards lower blood pressure. I did provide prehospital medical command for the patient. She was given normal saline prior to arrival. I did immediately evaluate the patient as noted above. She was given additional normal saline IV. History is limited that the patient will not answer my questions. I did obtain history from the policewoman as well as the paramedics. The patient was placed on a continuous nurse monitoring. I did order and personally review the patient's 12- lead EKG as described above. I did order and review the patient's blood work as noted in the electronic medical record. I did discuss the case with poison control. They recommended supportive care. She remained slightly hypotensive in the ED. As noted above she has a tendency toward low blood pressure on her prior admissions here. She was given a nicotine patch. She is requesting food but we did keep her n.p.o. in case she needs to be intubated. The patient became disruptive and pulled out her IV. She was not cooperative. I did not wish to chemically sedate her given her overdose so she was placed in soft restraints. I did discuss the case with the hospitalist who will admit her to the hospital. Medication Reconcilliation Current Medication List: was personally reviewed by me Blood Pressure Screening Patient's blood pressure: Low blood pressure Consults Time Called: [phone] Consulting Physician: Poison Control Returned Call: [phone] Recommended symptomatic and supportive care. No flumazenil. Additional Consults: Time Called: [phone] Consulted Physician: Dr. Sosa Returned Call: 0 Additional Comments: Agrees to admit the patient Impression Primary Impression: Intentional benzodiazepine overdose Critical Care I have personally spent 40 minutes of critical care time in the direct management of this patient. This includes bedside care, interpretation of diagnostic studies and testing, discussion with consultants and patient, and other required patient management activities. This time is in excess of all separately billable procedures. Scribe Attestation The scribe's documentation has been prepared under my direct and personally reviewed by me in its entirety. I confirm that the note above accurately reflects all work, treatment, procedures, and medical decision making performed by me. Departure Information Dispostion Being Evaluated By Hospitalist Referrals Police, [facility] (PCP) Patient Instructions My [facility] Problem Qualifiers Primary Impression: Intentional benzodiazepine overdose Encounter type: initial encounter Qualified Codes: T42.4X2A - Poisoning by benzodiazepines, intentional self-harm, initial encounter
[2017-09-19] VITALS (8 sets, daily range): BP systolic 91–150; BP diastolic 57–83; PULSE 70–88; TEMP 36.4–36.8; O2SAT 97–99; Ht 160 cm; Wt 49.7 kg
[2017-09-19] MEDS ORDERED: POLYETHYLENE (MIRALAX) 17 GM PACK PO PRN (00:15)
[2017-09-19] MEDS ORDERED: NITROGLYCERIN 0.4 MG SL PER TAB CHARGE SL PRN (00:15)
[2017-09-19] MEDS ORDERED: ALUMINUM/MAGNESIUM/SIMETH (MAALOX MAX) 30 ML UDC PO PRN (00:15)
[2017-09-19] MEDS ORDERED: ONDANSETRON INJ 2 MG/ML 2 ML VIAL IV PRN (00:15)
--- NOTE | 2017-09-19 01:26 | HISTORY & PHYSICAL EXAMINATION ---
DATE OF ADMISSION: 09/19/2017 CHIEF COMPLAINT: Drug overdose with Valium. HISTORY OF PRESENT ILLNESS: This is a 26-year-old female with past medical history significant for history of psychosis, history of drug abuse, history of heroin and opiate abuse and was on Suboxone, but she was taken off from pain clinics because of his noncompliance and she also found to be abusing Suboxone and benzo's, was brought in today because of patient supposedly took 45 tablets of 10 mg Valium that were 1 hour before brought into the hospital by EMS. The history was gotten by EMS and police in the ER. In the ER, currently, patient is alert and awake, somewhat noncooperative. She is trying to pull out the things so she is on soft restraints. She could tell her name and date of , but she does not want to tell today's date and where she is right now. Patient mostly non cooperative . When asked, she keeps staring, when asked she tells anything hurting her,she says mental and she says also has chest pain when asked for location says in the heart. Denies any nausea, denies abdominal pain, hemodynamically stable. When asked why she took Valium sys to feel better. Could not get much history from the patient as patient is somewhat noncooperative. ALLERGIES: AMOXIL AND TOMATO. PAST MEDICAL HISTORY: As mentioned above. HOME MEDICATIONS: Currently unobtainable. FAMILY HISTORY: Significant for cancer, gallbladder disease, heart disease, hypertension, kidney stones, seizures, history of substance abuse in the past. His brother had depression and attempted suicide. Mother has schizophrenia. SOCIAL HISTORY: As per previous records, smokes everyday. Substance history was on Suboxone from but currently she is taken off from this because she is noncompliant. REVIEW OF SYMPTOMS: As per HPI. Rest of review of systems could not be obtained as the patient is noncooperative. PHYSICAL EXAMINATION: GENERAL: Patient is alert and awake, somewhat noncooperative. VITAL SIGNS: Temperature 36.5, pulse 88, respiratory rate 20, blood pressure 95/57, oxygen 100% room air. HEENT: No pallor, no icterus. Pupils equal, round, and reactive to light. NECK: No JVD or neck masses. CARDIOVASCULAR: S1, S2, regular rate and rhythm, no murmur, no gallop. RESPIRATORY SYSTEM: Normal AP diameter. No accessory muscle use. No wheezing, no crackles. ABDOMEN: Soft, bowel sounds present. Nontender. No distention. CENTRAL NERVOUS SYSTEM: Alert and awake. Obeys simple commands. Moves extremities. EXTREMITIES: No edema, no erythema seen. LABORATORIES: WBC 8.3, hemoglobin 13.6, hematocrit 39, platelets 307. Sodium 141, potassium 3.7, chloride 107, bicarbonate 26, BUN 14, creatinine 0.8, serum glucose 79, calcium 8.1, total bilirubin 0.2, direct bilirubin less than 0.1, AST 10, ALT 11, alkaline phosphatase 77. TSH 0.29, Salicylates less than 2,Tylenol less than 2, ethyl alcohol less than 3. EKG: Normal sinus rhythm rate of 89. No acute disease seen. ASSESSMENT AND PLAN: This is a 26-year-old female who presents with drug overdose with Valium,supposedly 45 tabs of 10 mg tabs(supposedly tabs) but patient is non-somnolent, somewhat noncooperative. She has history of abusing of benzo's and Suboxone in the past, history of methadone and heroin abuse in the past, history of psychosis and she was seen by psychiatry in our hospital. ER talked with poison control and recommended, supportive care. Currently, non cooperative and trying to pull lines. On soft restraints will continue IV fluids. follow urine drug screen. Psych consult in the morning Deep venous thrombosis prophylaxis, sequential compression devices for now. DISPOSITION: Admit to tele floor, to be determined. Level 1 full code. MTDD
[2017-09-19] MEDS: SODIUM CHLORIDE 0.9% 1000ML 1,000 ML IV SCH ×3 (01:50→23:06)
[2017-09-19] MEDS: NICOTINE 21 MG/24 HR TDSY TD SCH ×2 (07:09→08:33)
[2017-09-19 07:10] LABS: BASO % 0.4 %; BASO ABS # 0.03 K/uL (0-0.2); EOS % 2.2 %; EOS ABS # 0.16 K/uL (0-0.5); HEMATOCRIT 34.8 % (37-47); IG# 0.01 K/uL (0.00-0.02); LYMPH % 44.1 %; MEAN CELL VOLUME 99.1 fL (80-100); MEAN CORPUSCULAR HEMOGLOBIN 34.2 pg (25-34); MEAN CORPUSCULAR HGB CONC 34.5 g/dl (32-36); MEAN PLATELET VOLUME 9.4 fL (7.4-10.4); MONO % 6.9 %; NEUT % 46.3 %; NEUT ABS # 3.36 K/uL (1.4-6.5); PLATELET COUNT 248 K/uL (130-400); RED CELL DISTRIBUTION WIDTH CV 13.2 % (11.5-14.5); RED CELL DISTRIBUTION WIDTH SD 47.4 fL (36.4-46.3); WHITE BLOOD COUNT 7.26 K/uL (4.8-10.8)
[2017-09-19 07:49] LABS: CALCIUM 7.4 mg/dl (8.5-10.1); CREATININE 0.6 mg/dl (0.60-1.20); POTASSIUM 3.8 mmol/L (3.5-5.1)
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
--- NOTE | 2017-09-19 16:30 | Progress Note ---
Medicine Progress Note Date & Time of Visit: Sep 19, 2017 at 16:22. Subjective Patient has been seen with RESTAURANT SUPERVISOR and RN at the bedside throughout encounter Sleeping, awakens with tactile and verbal stimuli Opens eyes and goes back to sleep Occasionally would open eyes, answer yes or no and then goes back to closing her eyes Denies pain, shortness of breath, headache No other symptoms noted Review of systems is difficult to perform as patient seems to be uncooperative Objective Last 8 Hrs Date Time Temp Pulse Resp B/P (MAP) Pulse Ox O2 Delivery O2 Flow Rate FiO2 09/19/17 13:00 36.6 79 18 91/57 (68) 98 Room Air Physical Exam: General-oriented 3, no distress, no accessory muscle use Head- atraumatic Eyes- PERRL,anicteric Mild swelling of the right eyelid, no scleral or palpebral erythema no discharge ENT-dry oral mucosa Neck- supple, no JVD, no adenopathy Lungs- clear breath sounds bilaterally Heart- regular rhythm; no murmur, normal rate Abdomen- normal bowel sounds, soft, nontender Extremities- no pretibial edema, no calf tenderness Neuro-difficult to assess this patient is uncooperative No gross focal deficits noted Skin- warm & dry Laboratory Results: Last 24 Hours Test 09/18/17 21:24 09/18/17 21:58 09/19/17 02:30 09/19/17 06:15 White Blood Count 8.31 K/uL 7.26 K/uL Red Blood Count 3.96 M/uL 3.51 M/uL Hemoglobin 13.6 g/dL 12.0 g/dL Hematocrit 39.0 % 34.8 % Mean Corpuscular Volume 98.5 fL 99.1 fL Mean Corpuscular Hemoglobin 34.3 pg 34.2 pg Mean Corpuscular Hemoglobin Concent 34.9 g/dl 34.5 g/dl RDW Standard Deviation 47.1 fL 47.4 fL RDW Coefficient of Variation 13.1 % 13.2 % Platelet Count 307 K/uL 248 K/uL Mean Platelet Volume 9.6 fL 9.4 fL Sodium Level 141 mmol/L 142 mmol/L Potassium Level 3.7 mmol/L 3.8 mmol/L Chloride Level 107 mmol/L 115 mmol/L Carbon Dioxide Level 26 mmol/L 26 mmol/L Anion Gap 8.0 mmol/L 1.0 mmol/L Blood Urea Nitrogen 14 mg/dl 11 mg/dl Creatinine 0.86 mg/dl 0.60 mg/dl Est Creatinine Clear Calc Drug Dose 82.7 ml/min 118.5 ml/min Estimated GFR () 108.8 146.8 Estimated GFR (Non- 93.9 126.7 BUN/Creatinine Ratio 15.9 18.5 Random Glucose 79 mg/dl 78 mg/dl Calcium Level 8.1 mg/dl 7.4 mg/dl Total Bilirubin 0.2 mg/dl Direct Bilirubin < 0.1 mg/dl Aspartate Amino Transf (AST/SGOT) 10 U/L Alanine Aminotransferase (ALT/SGPT) 11 U/L Alkaline Phosphatase 77 U/L Total Protein 6.8 gm/dl Albumin 3.6 gm/dl Thyroid Stimulating Hormone (TSH) 0.292 uIu/ml 0.184 uIu/ml Salicylates Level 2.5 mg/dl Acetaminophen Level < 2 ug/ml Ethyl Alcohol mg/dL < 3.0 mg/dl Urine Opiates Screen NEG Urine Methadone, Qualitative NEG Urine Barbiturates NEG Urine Phencyclidine (PCP) Level NEG Ur Amphetamine/Methamphetamine NEG MDMA (Ecstasy) Screen NEG Urine Benzodiazepines Screen POS Urine Cocaine Metabolite NEG Urine Marijuana (THC) NEG Neutrophils (%) (Auto) 46.3 % Lymphocytes (%) (Auto) 44.1 % Monocytes (%) (Auto) 6.9 % Eosinophils (%) (Auto) 2.2 % Basophils (%) (Auto) 0.4 % Neutrophils # (Auto) 3.36 K/uL Lymphocytes # (Auto) 3.20 K/uL Monocytes # (Auto) 0.50 K/uL Eosinophils # (Auto) 0.16 K/uL Basophils # (Auto) 0.03 K/uL Immature Granulocyte % (Auto) 0.1 % Immature Granulocyte # (Auto) 0.01 K/uL Magnesium Level 1.9 mg/dl Free Thyroxine 0.95 ng/dl Free Triiodothyronine 2.30 pg/ml Assessment & Plan 26-year-old female with a history of drug abuse, heroin and opiates, history of Suboxone use, psychosis Presenting with apparent overdose with Valium. Apparent Valium Overdose - patient also reported to have ingested ibuprofen and snorted a green tablet Poison control-consulted, supportive care recommended Patient starting to wake up more today, and patient had lunch 2 trays Continue IV fluids Monitor electrolytes and renal function Psychiatry service consulted, may need to transition to mental health unit History of drug abuse Tox screen positive for benzos only We will continue to monitor for signs of benzodiazepine or opioid withdrawal PDMP checked and patient had no recent prescriptions filled /recorded within the past year Psychiatry service on board DVT prophylaxis SCDs Disposition Continue medical observation, anticipate transfer to mental health unit tomorrow Current Inpatient Medications: Current Inpatient Medications Medications (Trade) Dose Ordered Sig/Audrey Route Start Time Stop Time Status Last Admin Dose Admin Sodium Chloride 1,000 ml @ 100 mls/hr Q10H IV 09/19/17 01:30 10/19/17 01:29 09/19/17 11:57 100 MLS/HR Acetaminophen (Tylenol Tab) 650 mg Q4H PRN PO 09/19/17 00:15 10/19/17 00:14 Al Hydrox/Mg Hydrox/Simethicone (Maalox Max Susp) 15 ml Q4H PRN PO 09/19/17 00:15 10/19/17 00:14 Ondansetron HCl (Zofran Inj) 4 mg Q6H PRN IV 09/19/17 00:15 10/19/17 00:14 Nitroglycerin (Nitrostat Tab) 0.4 mg UD PRN SL 09/19/17 00:15 10/19/17 00:14 Polyethylene (Miralax Powder Packet) 17 gm DAILY PRN PO 09/19/17 00:15 10/19/17 00:14 Nicotine (Nicoderm Cq 21MG Patch) 1 patch QAM TD 09/19/17 06:30 10/19/17 06:29 09/19/17 08:33 1 PATCH Miscellaneous (Remove Nicoderm Patch) 1 ea HS N/A 09/19/17 21:00 10/19/17 20:59
[2017-09-19] MEDS: ACETAMINOPHEN 325 MG TAB PO PRN ×2 (18:08→23:23)
--- NOTE | 2017-09-20 08:03 | Psychiatric Progress Notes ---
Progress Note Date of Service Sep 20, 2017. Interval History 26-year-old single white female from [place] who has a history of psychosis NOS and polysubstance abuse, was recently on our behavioral health unit in June of this year, and presented to the emergency room last night after overdosing on Valium which she took from her father. Psychiatry consulted for overdose. Chief Complaint Patient nonverbal, refusing to answer questions. Subjective Patient was seen & assessed and interval progress reviewed with nursing staff. Chart reviewed; she spoke with the liaison nurse last night, reported that she was in pain and wanted pain meds, and said that she took the Valium overdose for pain. She denied that she was attempting to harm herself. She gave vague one word answers to questions. Per nursing notes, she has repeatedly asked for pain meds. Her nurse states she told staff she wanted to go to [facility]. On my assessment today, she is awake, but does not speak or respond to multiple attempts to talk with her. Review of Systems Patient will not respond to questions re: ROS. Mental Status Exam During interview pt is: uncooperative, other (alert, but does not speak or respond to questions) Appearance: disheveled, other (Patient is unrecognizable from her hospitalization here several months ago; head is shaved; lying in bed in NAD.) Eye contact is: good (staring at times) Motor behavior is: no abnormal motor movements Speech: other (No speech) Affect: flat Could not assess mood, thoughts, psychosis as patient not responding to questions. Impression 26-year-old female from [place] with a history of significant substance abuse and multiple admissions for psychosis not otherwise specified, with a differential that includes substance-induced psychosis, a primary thought disorder, or psychotic mood disorder. She continues to abuse substances, now admitted with an overdose on her father's Valium. We will need to get collateral information, although there are few reliable family members, but hopefully her father can provide at least some information about how she came to be in possession of his medication and if he has reason to think her OD was a suicide attempt. She denied that she overdosed with intent to harm herself, and I have no evidence that this was a suicide attempt. It remains unclear whether or not she will be a candidate for psychiatric treatment. Until she can be assessed, she should not be allowed to leave the hospital AMA. We will continue to follow. It would be helpful to contact her father and outpatient providers for additional information. Plan (1) Intentional benzodiazepine overdose 09/19 -get collateral information from father as she overdosed on his prescription medications, and will interview patient once she is awake regarding her intention with the overdose. 09/20 - patient told staff her OD was not a suicide attempt. Get collateral from family and OP providers. Continue to clarify circumstances surrounding OD with patient once she is cooperative with interview. -Unclear if patient was compliant with medications after discharge form the [facility] - she is not answering questions, will need to contact OP providers tomorrow to clarify home meds, etc. (2) Heroin abuse 09/19 -patient reports being prescribed Suboxone, but there are no prescriptions in the PDMP, and when she was on her unit in June, she lied about her current substance abuse treatment, stating that she was being prescribed Suboxone when she was in fact not. If she has started treatment with a new physician who is now prescribing Suboxone, prescription should be confirmed with that individual to ensure that she is still in active treatment. Consider use of the clonidine protocol if needed for withdrawal. (3) Benzodiazepine abuse 09/19 -long-standing history of polysubstance abuse. Patient should not be prescribed controlled substances outside of the hospital due to the high risk of abuse/misuse/negative outcomes. -If it is determined that she has been chronically abusing benzodiazepines, she may benefit from the AWSS protocol and a gabapentin taper. Currently hypotensive with normal heart rate and no signs of withdrawal. Visit Code E&M Code: 43718 Risk Factors Assessment : Yes /single/: Yes Higher / Fall in social status: No Health problems: No Mental Health Diagnoses: Yes Substance use disorders: Yes Previous attempt: Yes Family history of suicide: No Previous psychiatric stay: Yes Protective Factors Assessment Denominational beliefs: No : No Responsible for young children: No Employed: No Stable relationships: No Supportive family: No Data Vital Signs Last 24 Hrs: Date Time Temp Pulse Resp B/P (MAP) Pulse Ox O2 Delivery O2 Flow Rate FiO2 09/19/17 23:14 36.5 88 14 101/65 (77) 97 Room Air 09/19/17 20:08 36.5 74 14 102/68 (79) 97 Room Air 09/19/17 20:00 Room Air 09/19/17 13:00 36.6 79 18 91/57 (68) 98 Room Air 09/19/17 08:00 Room Air Meds Administered Last 24 Hrs: Meds Administered (Past 24Hrs) Medications (Trade) Dose Ordered Sig/Audrey Route Start Time Stop Time Status Last Admin Dose Admin Sodium Chloride 1,000 ml @ 999 mls/hr Q1H1M STAT IV 09/18/17 21:55 09/18/17 22:55 DC 09/18/17 21:55 999 MLS/HR Nicotine (Nicoderm Cq 14MG Patch) 1 patch NOW STAT TD 09/18/17 22:51 09/18/17 22:52 DC 09/19/17 00:12 1 PATCH Sodium Chloride 1,000 ml @ 100 mls/hr Q10H IV 09/19/17 01:30 10/19/17 01:29 09/19/17 23:06 100 MLS/HR Acetaminophen (Tylenol Tab) 650 mg Q4H PRN PO 09/19/17 00:15 10/19/17 00:14 09/19/17 23:23 650 MG Nicotine (Nicoderm Cq 21MG Patch) 1 patch QAM TD 09/19/17 06:30 10/19/17 06:29 09/19/17 08:33 1 PATCH Miscellaneous (Remove Nicoderm Patch) 1 ea HS N/A 09/19/17 21:00 10/19/17 20:59 09/19/17 20:54 1 EA Problem Qualifiers (1) Intentional benzodiazepine overdose: Encounter type: initial encounter Qualified Codes: T42.4X2A - Poisoning by benzodiazepines, intentional self-harm, initial encounter
[2017-09-20 08:09] VITALS: BP 105/70; PULSE 73; TEMP 36.7; O2SAT 99
[2017-09-20] MEDS: NICOTINE 21 MG/24 HR TDSY TD SCH (08:26)
[2017-09-20] MEDS: SODIUM CHLORIDE 0.9% 1000ML 1,000 ML IV SCH (08:27)
[2017-09-20 11:01] LABS: BASO % 0.3 %; BASO ABS # 0.02 K/uL (0-0.2); EOS % 1.5 %; EOS ABS # 0.09 K/uL (0-0.5); HEMATOCRIT 34.8 % (37-47); IG# 0.01 K/uL (0.00-0.02); LYMPH % 34.2 %; LYMPH ABS # 2.04 K/uL (1.2-3.4); MEAN CELL VOLUME 98.6 fL (80-100); MEAN CORPUSCULAR HGB CONC 34.5 g/dl (32-36); MEAN PLATELET VOLUME 9.1 fL (7.4-10.4); MONO % 4.2 %; MONO ABS # 0.25 K/uL (0.11-0.59); NEUT % 59.6 %; NEUT ABS # 3.55 K/uL (1.4-6.5); PLATELET COUNT 241 K/uL (130-400); RED CELL DISTRIBUTION WIDTH CV 13.1 % (11.5-14.5); RED CELL DISTRIBUTION WIDTH SD 47.4 fL (36.4-46.3); WHITE BLOOD COUNT 5.96 K/uL (4.8-10.8)
--- NOTE | 2017-09-20 11:15 | Progress Note ---
Medicine Progress Note Date & Time of Visit: Sep 20, 2017 at 11:15. Subjective seen resting in bed more awake oriented x 2 when asked, patient still denies any suicidal thoughts/plans states she does not remember taking Valium does report chronic generalized pain- including shoulders states she takes Vicodin BID when asked who prescribes it, patient states she does not know when asked if she feels sad, patient says yes but denies suicidality no other symptoms Objective Last 8 Hrs Date Time Temp Pulse Resp B/P (MAP) Pulse Ox O2 Delivery O2 Flow Rate FiO2 09/20/17 08:09 36.7 73 16 105/70 (82) 99 09/20/17 08:00 Room Air Physical Exam: General-oriented 3, no distress, no accessory muscle use Eyes- anicteric no swelling of eyelids Neck- supple, no JVD Lungs- clear breath sounds bilaterally no rales/wheezes Heart- regular rhythm; no murmur, normal rate Abdomen- normal bowel sounds, soft, nontender Extremities- no pretibial edema, no calf tenderness shoulders- no warmth/tenderness/swelling, full ROM Neuro- alert, oriented x 2 No gross focal deficits noted Skin- warm & dry Laboratory Results: Last 24 Hours Test 09/20/17 10:47 09/20/17 11:07 White Blood Count 5.96 K/uL Red Blood Count 3.53 M/uL Hemoglobin 12.0 g/dL Hematocrit 34.8 % Mean Corpuscular Volume 98.6 fL Mean Corpuscular Hemoglobin 34.0 pg Mean Corpuscular Hemoglobin Concent 34.5 g/dl Platelet Count 241 K/uL Mean Platelet Volume 9.1 fL Neutrophils (%) (Auto) 59.6 % Lymphocytes (%) (Auto) 34.2 % Monocytes (%) (Auto) 4.2 % Eosinophils (%) (Auto) 1.5 % Basophils (%) (Auto) 0.3 % Neutrophils # (Auto) 3.55 K/uL Lymphocytes # (Auto) 2.04 K/uL Monocytes # (Auto) 0.25 K/uL Eosinophils # (Auto) 0.09 K/uL Basophils # (Auto) 0.02 K/uL RDW Standard Deviation 47.4 fL RDW Coefficient of Variation 13.1 % Immature Granulocyte % (Auto) 0.2 % Immature Granulocyte # (Auto) 0.01 K/uL Assessment & Plan 26-year-old female with a history of drug abuse, heroin and opiates, history of Suboxone use, psychosis Presenting with apparent overdose with Valium. Apparent Valium Overdose - patient also reported to have ingested ibuprofen and snorted a green tablet Poison control-consulted, supportive care recommended - remains hemodynamically stable lab work unremarkable no signs/symptoms of withdrawal - Psych on board evaluation in progress, patient giving vague answers and is uncooperative with interview encourage to participate so we can help her get better History of Opioid and Heroin Drug Abuse - no signs of withdrawal - monitor closely Tox screen positive for benzos only We will continue to monitor for signs of benzodiazepine or opioid withdrawal PDMP checked and patient had no recent prescriptions filled /recorded within the past year History of Psychosis - Olanzepine BID ordered - monitor closely likely patient will need inpatient Psych evaluation DVT prophylaxis SCDs Disposition Continue medical observation, anticipate transfer to mental health unit Current Inpatient Medications: Current Inpatient Medications Medications (Trade) Dose Ordered Sig/Audrey Route Start Time Stop Time Status Last Admin Dose Admin Sodium Chloride 1,000 ml @ 100 mls/hr Q10H IV 09/19/17 01:30 10/19/17 01:29 09/20/17 08:27 100 MLS/HR Acetaminophen (Tylenol Tab) 650 mg Q4H PRN PO 09/19/17 00:15 10/19/17 00:14 09/19/17 23:23 650 MG Al Hydrox/Mg Hydrox/Simethicone (Maalox Max Susp) 15 ml Q4H PRN PO 09/19/17 00:15 10/19/17 00:14 Ondansetron HCl (Zofran Inj) 4 mg Q6H PRN IV 09/19/17 00:15 10/19/17 00:14 Nitroglycerin (Nitrostat Tab) 0.4 mg UD PRN SL 09/19/17 00:15 10/19/17 00:14 Polyethylene (Miralax Powder Packet) 17 gm DAILY PRN PO 09/19/17 00:15 10/19/17 00:14 Nicotine (Nicoderm Cq 21MG Patch) 1 patch QAM TD 09/19/17 06:30 10/19/17 06:29 09/20/17 08:26 1 PATCH Miscellaneous (Remove Nicoderm Patch) 1 ea HS N/A 09/19/17 21:00 10/19/17 20:59 09/19/17 20:54 1 EA
[2017-09-20] MEDS ORDERED: NURSING VERBAL MED ORDER ONE ×2 (11:30→19:15)
[2017-09-20 11:49] LABS: BLOOD UREA NITROGEN 5 mg/dl (7-18); CALCIUM 7.9 mg/dl (8.5-10.1); CARBON DIOXIDE 24 mmol/L (21-32); CREATININE 0.52 mg/dl (0.60-1.20); POTASSIUM 3.9 mmol/L (3.5-5.1); SODIUM 144 mmol/L (136-145)
--- NOTE | 2017-09-20 11:49 | DIAGNOSTIC IMAGING REPORT ---
R SHOULDER MIN 2 VIEWS ROUTINE CLINICAL HISTORY: Bilateral shoulder pain. Evaluate for fracture. COMPARISON: None FINDINGS: Alignment of the right shoulder is anatomic. There is no fracture. Joint spaces are preserved. There is no osseous lesion. IMPRESSION: Unremarkable right shoulder radiographs. Electronically signed by: David Graham M.D. 09/20/2017 11:48 AM Dictated Date/Time: 09/20/2017 11:47 AM
[2017-09-20 11:50] LABS: GLUCOSE 83 mg/dl (70-99)
--- NOTE | 2017-09-20 11:51 | DIAGNOSTIC IMAGING REPORT ---
L SHOULDER MIN 2 VIEWS ROUTINE CLINICAL HISTORY: Bilateral shoulder pain. Evaluate for fracture. COMPARISON: None FINDINGS: Alignment of the left shoulder is anatomic. No acute fracture is identified. Joint spaces are preserved. IMPRESSION: No acute fracture or dislocation within the left shoulder. Electronically signed by: David Graham M.D. 09/20/2017 11:49 AM Dictated Date/Time: 09/20/2017 11:48 AM
[2017-09-20 13:34] VITALS: BP 105/70; PULSE 84; O2SAT 98
[2017-09-20 14:08] VITALS: BP 120/78; PULSE 78; O2SAT 98
[2017-09-20 14:47] VITALS: BP 94/56; PULSE 80; TEMP 36.6; O2SAT 96
[2017-09-20] MEDS: ACETAMINOPHEN 325 MG TAB PO PRN ×2 (14:47→21:53)
[2017-09-20] MEDS ORDERED: CETIRIZINE HCL 10 MG TAB PO ONE (19:30)
[2017-09-20] MEDS: OLANZAPINE 5 MG TAB PO SCH (20:42)
[2017-09-20 23:06] VITALS: BP 108/71; PULSE 83; TEMP 36.7; O2SAT 99
[2017-09-21 06:29] LABS: BASO % 0.4 %; BASO ABS # 0.03 K/uL (0-0.2); EOS % 1.2 %; EOS ABS # 0.08 K/uL (0-0.5); HEMATOCRIT 34.6 % (37-47); HEMOGLOBIN 11.9 g/dL (12.0-16.0); IG# 0.01 K/uL (0.00-0.02); LYMPH % 49.2 %; LYMPH ABS # 3.35 K/uL (1.2-3.4); MEAN CELL VOLUME 99.1 fL (80-100); MEAN CORPUSCULAR HEMOGLOBIN 34.1 pg (25-34); MEAN CORPUSCULAR HGB CONC 34.4 g/dl (32-36); MEAN PLATELET VOLUME 9.4 fL (7.4-10.4); MONO % 7.9 %; MONO ABS # 0.54 K/uL (0.11-0.59); NEUT % 41.2 %; PLATELET COUNT 259 K/uL (130-400); RED CELL DISTRIBUTION WIDTH CV 13.1 % (11.5-14.5); RED CELL DISTRIBUTION WIDTH SD 47.3 fL (36.4-46.3); WHITE BLOOD COUNT 6.81 K/uL (4.8-10.8)
[2017-09-21 07:05] LABS: CALCIUM 7.6 mg/dl (8.5-10.1); CREATININE 0.79 mg/dl (0.60-1.20); POTASSIUM 3.3 mmol/L (3.5-5.1)
[2017-09-21] MEDS ORDERED: POTASSIUM CHLORIDE 20 MEQ TABCR PO STA (07:29)
[2017-09-21 08:00] VITALS: BP 100/64; PULSE 77; TEMP 36.5; O2SAT 98
[2017-09-21] MEDS: NICOTINE 21 MG/24 HR TDSY TD SCH ×2 (08:14→09:09)
[2017-09-21] MEDS: OLANZAPINE 5 MG TAB PO SCH ×2 (08:14→20:30)
[2017-09-21] MEDS: HYDROCORTISONE HC 2.5% CRM 30GM TUBE EXT SCH ×2 (08:15→09:09)
[2017-09-21] MEDS: ACETAMINOPHEN 325 MG TAB PO PRN ×2 (09:09→19:56)
--- NOTE | 2017-09-21 12:02 | Psychiatric Progress Notes ---
Progress Note Date of Service Sep 21, 2017. Interval History 26-year-old single white female from [place] who has a history of psychosis NOS and polysubstance abuse, was recently on our behavioral health unit in June of this year, and presented to the emergency room last night after overdosing on Valium which she took from her father. Psychiatry consulted for overdose. Chief Complaint "Good ". Subjective Patient was seen & assessed, interval progress reviewed. Patient is awake and cooperative with the assessment today. She states that she "feels better," and denies current psychiatric complaints. She says that she overdosed on Valium, "as many as I could, I wanted to feel better." She admits to ongoing polysubstance abuse. She is not interested in going to inpatient substance abuse treatment. She says her mood is good, denies paranoia, hallucinations, thoughts of harming herself and thoughts of harming others. She is tolerating the olanzapine well. She plans to return to her previous living situation, where she would go between her brother's house and [facility] and her father's house in [place]. She was informed that we have been in touch with [facility], and that due to her multiple missed appointments, they may not be willing to continue to work with her, but will let us know once they decide. Review of Systems Denies muscle stiffness, tremors, GI symptoms. Mental Status Exam During interview pt is: alert and oriented, cooperative Appearance: appropriately dressed, other (Seated in bed in no acute distress. Childlike behavior.) Eye contact is: good (staring at times) Motor behavior is: no abnormal motor movements Speech: other (Nonspontaneous, but answers questions without significant delay , gives short answers.) Affect: flat Thought process: goal directed, concrete Thought content: reality based without delusions Suicidal thought are: denied Homicidal thoughts are: denied Hallucinations: denies auditory, denies visual Cognition: attention grossly intact, language grossly intact Insight: impaired Judgement: impaired Impression 26-year-old female from [place] with a history of significant substance abuse and history of psychosis and OS who is admitted after an intentional Valium overdose. She has consistently denied suicidal thoughts, active mood symptoms, and does not appear currently psychotic. She admits to taking a Valium overdose, but states that she was not trying to end her life, and did this in the context of ongoing polysubstance abuse. Plan (1) Intentional benzodiazepine overdose 09/19 -get collateral information from father as she overdosed on his prescription medications, and will interview patient once she is awake regarding her intention with the overdose. 09/20 - patient told staff her OD was not a suicide attempt. Get collateral from family and OP providers. Continue to clarify circumstances surrounding OD with patient once she is cooperative with interview. -Unclear if patient was compliant with medications after discharge form the [facility] - she is not answering questions, will need to contact OP providers tomorrow to clarify home meds, etc. 09/21 -would not prescribe any controlled substances for this patient, due to her persistent misuse of controlled substances and the high risk of abuse/misuse /overdose/negative outcomes. -Have recommended inpatient rehab, which she is refusing. -She is consistently denied suicidal thoughts, reports stable mood, and does not meet criteria for inpatient psychiatric treatment. She can be discharged to outpatient care at this time. The liaison nurse has been in touch with her psychiatric PA at [facility] to determine if she can resume care there (has a history of noncompliance). -Continue olanzapine 5 mg twice daily, and follow-up with outpatient psychiatrist. I will ask the liaison nurse to follow up with her other outpatient providers, as she was referred for therapy and case management when she left the [facility] several months ago. (2) Heroin abuse 09/19 -patient reports being prescribed Suboxone, but there are no prescriptions in the PDMP, and when she was on her unit in June, she lied about her current substance abuse treatment, stating that she was being prescribed Suboxone when she was in fact not. If she has started treatment with a new physician who is now prescribing Suboxone, prescription should be confirmed with that individual to ensure that she is still in active treatment. Consider use of the clonidine protocol if needed for withdrawal. (3) Benzodiazepine abuse 09/19 -long-standing history of polysubstance abuse. Patient should not be prescribed controlled substances outside of the hospital due to the high risk of abuse/misuse/negative outcomes. -If it is determined that she has been chronically abusing benzodiazepines, she may benefit from the AWSS protocol and a gabapentin taper. Currently hypotensive with normal heart rate and no signs of withdrawal. Visit Code E&M Code: 22070 Risk Factors Assessment : Yes /single/: Yes Higher / Fall in social status: No Access to guns: No Health problems: No Mental Health Diagnoses: Yes Substance use disorders: Yes Previous attempt: Yes Family history of suicide: No Previous psychiatric stay: Yes Protective Factors Assessment Synagogue beliefs: No : No Responsible for young children: No Employed: No Stable relationships: No Supportive family: No Absence of risk factors above: Yes (Not currently depressed, psychotic, or suicidal, has been sleeping, eating, and taking medications as prescribed here in the hospital, has a place to live, and is willing to follow up with outpatient treatment. We have recommended inpatient rehab for ongoing substance abuse, which she is refusing. The patient is no longer at acute risk of harm to herself, so can be discharged and managed as an outpatient at this time. She does have chronic elevated risk for harm to both herself and others compared to the general population, but that risk is not likely to be mitigated by inpatient psychiatric treatment.) Data Vital Signs Last 24 Hrs: Date Time Temp Pulse Resp B/P (MAP) Pulse Ox O2 Delivery O2 Flow Rate FiO2 09/21/17 08:00 36.5 77 20 100/64 (76) 98 Room Air 09/21/17 08:00 98 Room Air 09/21/17 00:05 Room Air 09/20/17 23:06 36.7 83 19 108/71 (83) 99 Room Air 09/20/17 14:47 36.6 80 17 94/56 (69) 96 Room Air 09/20/17 14:08 78 98 09/20/17 13:34 84 18 105/70 (82) 98 Meds Administered Last 24 Hrs: Meds Administered (Past 24Hrs) Medications (Trade) Dose Ordered Sig/Audrey Route Start Time Stop Time Status Last Admin Dose Admin Miscellaneous (Remove Nicoderm Patch) 1 ea HS N/A 09/19/17 21:00 10/19/17 20:59 09/20/17 20:42 1 EA Olanzapine (Zyprexa Tab) 5 mg BID PO 09/20/17 21:00 10/20/17 20:59 09/21/17 08:14 5 MG Cetirizine HCl (zyrTEC TAB) 10 mg NOW ONCE PO 09/20/17 19:30 09/20/17 19:31 DC 09/20/17 20:41 10 MG Diphenhydramine HCl (Benadryl Syrup) 12.5 mg ONE ONCE PO 09/21/17 07:30 09/21/17 07:31 DC 09/21/17 08:13 12.5 MG Potassium Chloride (Klor-Con Tab) 40 meq NOW STAT PO 09/21/17 07:29 09/21/17 07:30 DC 09/21/17 08:14 40 MEQ Lab Results Last 24 Hrs: Last 24 Hours Test 09/21/17 05:37 White Blood Count 6.81 K/uL Red Blood Count 3.49 M/uL Hemoglobin 11.9 g/dL Hematocrit 34.6 % Mean Corpuscular Volume 99.1 fL Mean Corpuscular Hemoglobin 34.1 pg Mean Corpuscular Hemoglobin Concent 34.4 g/dl Platelet Count 259 K/uL Mean Platelet Volume 9.4 fL Neutrophils (%) (Auto) 41.2 % Lymphocytes (%) (Auto) 49.2 % Monocytes (%) (Auto) 7.9 % Eosinophils (%) (Auto) 1.2 % Basophils (%) (Auto) 0.4 % Neutrophils # (Auto) 2.80 K/uL Lymphocytes # (Auto) 3.35 K/uL Monocytes # (Auto) 0.54 K/uL Eosinophils # (Auto) 0.08 K/uL Basophils # (Auto) 0.03 K/uL RDW Standard Deviation 47.3 fL RDW Coefficient of Variation 13.1 % Immature Granulocyte % (Auto) 0.1 % Immature Granulocyte # (Auto) 0.01 K/uL Sodium Level 144 mmol/L Potassium Level 3.3 mmol/L Chloride Level 110 mmol/L Carbon Dioxide Level 25 mmol/L Anion Gap 9.0 mmol/L Blood Urea Nitrogen 7 mg/dl Creatinine 0.79 mg/dl Est Creatinine Clear Calc Drug Dose 86.3 ml/min Estimated GFR () 120.6 Estimated GFR (Non- 104.0 BUN/Creatinine Ratio 8.6 Random Glucose 76 mg/dl Calcium Level 7.6 mg/dl Problem Qualifiers (1) Intentional benzodiazepine overdose: Encounter type: initial encounter Qualified Codes: T42.4X2A - Poisoning by benzodiazepines, intentional self-harm, initial encounter
[2017-09-21 16:00] VITALS: O2SAT 95
[2017-09-21] MEDS: IBUPROFEN 200 MG TAB PO PRN (16:21)
[2017-09-21 22:51] VITALS: BP 102/79; PULSE 71; TEMP 36.4; O2SAT 98
[2017-09-22] MEDS: ACETAMINOPHEN 325 MG TAB PO PRN ×2 (01:12→08:42)
[2017-09-22 06:38] LABS: BASO % 0.6 %; BASO ABS # 0.04 K/uL (0-0.2); EOS % 1.8 %; EOS ABS # 0.13 K/uL (0-0.5); HEMATOCRIT 35.6 % (37-47); HEMOGLOBIN 12.2 g/dL (12.0-16.0); IG# 0.02 K/uL (0.00-0.02); LYMPH % 40.1 %; LYMPH ABS # 2.85 K/uL (1.2-3.4); MEAN CELL VOLUME 100.3 fL (80-100); MEAN CORPUSCULAR HEMOGLOBIN 34.4 pg (25-34); MEAN CORPUSCULAR HGB CONC 34.3 g/dl (32-36); MEAN PLATELET VOLUME 9.4 fL (7.4-10.4); MONO % 5.8 %; MONO ABS # 0.41 K/uL (0.11-0.59); NEUT % 51.4 %; NEUT ABS # 3.66 K/uL (1.4-6.5); PLATELET COUNT 265 K/uL (130-400); RED CELL DISTRIBUTION WIDTH CV 13.3 % (11.5-14.5); RED CELL DISTRIBUTION WIDTH SD 49.1 fL (36.4-46.3); WHITE BLOOD COUNT 7.11 K/uL (4.8-10.8)
[2017-09-22 07:10] LABS: CALCIUM 7.9 mg/dl (8.5-10.1); CREATININE 0.73 mg/dl (0.60-1.20); POTASSIUM 3.4 mmol/L (3.5-5.1)
[2017-09-22] MEDS: HYDROCORTISONE HC 2.5% CRM 30GM TUBE EXT SCH (07:59)
[2017-09-22] MEDS: OLANZAPINE 5 MG TAB PO SCH (08:00)
[2017-09-22 08:34] VITALS: BP 112/74; PULSE 92; TEMP 36.8; O2SAT 97
[2017-09-22] MEDS ORDERED: POTASSIUM CHLORIDE 20 MEQ TABCR PO STA (11:58)
--- NOTE | 2017-09-22 12:20 | Progress Note ---
Internal Med Progress Note Date of Service: Sep 22, 2017. Provider Documentation: SUBJECTIVE: Seen and examined at bedside doing well today No complaints Denies chest pain, SOB, dizziness Denies any suicidal/Homicidal thoughts Discusses with Psychiatry today:::Doesn't meed Inpatient Criteria, OK to DC from mental health stand point OBJECTIVE: Vital Signs-as noted below Physical Exam: General Appearance:Moderately built and nourished, no apparent distress Head: normocephalic, Atraumatic Eyes: normal inspection, EOMI, PERRL Neck: supple, Trachea midline Respiratory/Chest: Normal breath sounds, CTA Cardiovascular: S1, S2, No murmur Abdomen/GI:Soft, Non tender, Bowel sounds present Extremities/Musculoskelatal:normal inspection, no edema Neurologic/Psych:AAOX3, grossly no focal neurological deficits Skin: normal color, warm Lab data as noted below. ASSESSMENT & PLAN: Patient is a 26 yr female with a history of drug abuse, heroin and opiates, history of Suboxone use( as per patient), psychosis who presents with apparent overdose with Valium. Intentional Benzodiazepine Overdose Patient also reported to have ingested ibuprofen and snorted a green tablet Poison control-consulted, supportive care recommended hemodynamically stable no signs/symptoms of withdrawal Continue Zyprexa 5mg BID as per Psychiatry Appreciate Psychiatry Input Patient refused Rehab facility Discussed with Psychiatry today:Cleared for discharge, doesn't meet Inpatient Criteria History of Opioid and Heroin Drug Abuse no signs of withdrawal H/O Psychosis Continue Olanzapine 5mg BID Appreciate Psych Input (Off Note: Will provide prescription for Olanzapine only sufficient till follow up with PCP) DVT Px: SCDs Disposition Refused Rehab placement Doesn't meet Inpatient Psych per Psych Plan to discharge home today Follow up with your PCP Dr.Taylor Louie at [facility] on Thursday at 2:30 pm. Follow up with your Psychiatrist in 1 week Seek immediate medical attention if your symptoms reoccur or worsen Vital Signs: Date Time Temp Pulse Resp B/P (MAP) Pulse Ox O2 Delivery O2 Flow Rate FiO2 09/22/17 08:34 36.8 92 18 112/74 (87) 97 Room Air 09/22/17 08:30 Room Air 09/22/17 00:00 Room Air 09/21/17 22:51 36.4 71 18 102/79 (87) 98 Room Air 09/21/17 16:00 95 Room Air Lab Results: Results Past 24 Hours Test 09/22/17 06:08 Range/Units White Blood Count 7.11 4.8-10.8 K/uL Red Blood Count 3.55 4.2-5.4 M/uL Hemoglobin 12.2 12.0-16.0 g/dL Hematocrit 35.6 37-47 % Mean Corpuscular Volume 100.3 80-100 fL Mean Corpuscular Hemoglobin 34.4 25-34 pg Mean Corpuscular Hemoglobin Concent 34.3 32-36 g/dl Platelet Count 265 130-400 K/uL Mean Platelet Volume 9.4 7.4-10.4 fL Neutrophils (%) (Auto) 51.4 % Lymphocytes (%) (Auto) 40.1 % Monocytes (%) (Auto) 5.8 % Eosinophils (%) (Auto) 1.8 % Basophils (%) (Auto) 0.6 % Neutrophils # (Auto) 3.66 1.4-6.5 K/uL Lymphocytes # (Auto) 2.85 1.2-3.4 K/uL Monocytes # (Auto) 0.41 0.11-0.59 K/uL Eosinophils # (Auto) 0.13 0-0.5 K/uL Basophils # (Auto) 0.04 0-0.2 K/uL RDW Standard Deviation 49.1 36.4-46.3 fL RDW Coefficient of Variation 13.3 11.5-14.5 % Immature Granulocyte % (Auto) 0.3 % Immature Granulocyte # (Auto) 0.02 0.00-0.02 K/uL Sodium Level 143 136-145 mmol/L Potassium Level 3.4 3.5-5.1 mmol/L Chloride Level 109 98-107 mmol/L Carbon Dioxide Level 25 21-32 mmol/L Anion Gap 9.0 3-11 mmol/L Blood Urea Nitrogen 11 7-18 mg/dl Creatinine 0.73 0.60-1.20 mg/dl Est Creatinine Clear Calc Drug Dose 92.4 ml/min Estimated GFR () 132.7 Estimated GFR (Non- 114.5 BUN/Creatinine Ratio 15.7 10-20 Random Glucose 97 70-99 mg/dl Calcium Level 7.9 8.5-10.1 mg/dl
[2017-09-22] MEDS ORDERED: MRLP17X PO (12:21)
[2017-09-22] MEDS ORDERED: ZYP5 PO (12:21)
--- NOTE | 2017-09-22 12:23 | Discharge Summary ---
Discharge Summary Date of Service Sep 22, 2017. Discharge Summary Admission Date: Sep 19, 2017 at 00:16 Discharge Date: Sep 22, 2017 Discharge Disposition: Home Principal Diagnosis: Benzodiazepine Overdose Procedures: Shoulder X ray: No acute fracture or dislocation within the left shoulder. Unremarkable right shoulder radiographs. Consultations: Psychiatry Pending Studies/Follow-Up: Follow up with your PCP Dr.Taylor Louie at [facility] on Thursday at 2:30 pm. Follow up with your Psychiatrist in 1 week Seek immediate medical attention if your symptoms reoccur or worsen Medication Reconciliation New Medications: Olanzapine (Olanzapine) 5 Mg Tab 5 MG PO BID for 7 Days, #14 TAB Polyethylene (Miralax) 17 Gm Pow 17 GM PO DAILY PRN for Constipation for 7 Days, #7 EA Admission Information HPI (per Admitting provider): CHIEF COMPLAINT: Drug overdose with Valium. HISTORY OF PRESENT ILLNESS: This is a 26-year-old female with past medical history significant for history of psychosis, history of drug abuse, history of heroin and opiate abuse and was on Suboxone, but she was taken off from pain clinics because of his noncompliance and she also found to be abusing Suboxone and benzo's, was brought in today because of patient supposedly took 45 tablets of 10 mg Valium that were 1 hour before brought into the hospital by EMS. The history was gotten by EMS and police in the ER. In the ER, currently, patient is alert and awake, somewhat noncooperative. She is trying to pull out the things so she is on soft restraints. She could tell her name and date of , but she does not want to tell today's date and where she is right now. Patient mostly non cooperative . When asked, she keeps staring, when asked she tells anything hurting her,she says mental and she says also has chest pain when asked for location says in the heart. Denies any nausea, denies abdominal pain, hemodynamically stable. When asked why she took Valium sys to feel better. Could not get much history from the patient as patient is somewhat noncooperative. Physical Exam (per Admitting): PHYSICAL EXAMINATION: GENERAL: Patient is alert and awake, somewhat noncooperative. VITAL SIGNS: Temperature 36.5, pulse 88, respiratory rate 20, blood pressure 95/57, oxygen 100% room air. HEENT: No pallor, no icterus. Pupils equal, round, and reactive to light. NECK: No JVD or neck masses. CARDIOVASCULAR: S1, S2, regular rate and rhythm, no murmur, no gallop. RESPIRATORY SYSTEM: Normal AP diameter. No accessory muscle use. No wheezing, no crackles. ABDOMEN: Soft, bowel sounds present. Nontender. No distention. CENTRAL NERVOUS SYSTEM: Alert and awake. Obeys simple commands. Moves extremities. EXTREMITIES: No edema, no erythema seen. Hospital Course Patient is a 26 yr female with a history of drug abuse, heroin and opiates, history of Suboxone use( as per patient), psychosis who presents with apparent overdose with Valium. Intentional Benzodiazepine Overdose Patient also reported to have ingested ibuprofen and snorted a green tablet Poison control-consulted, supportive care recommended hemodynamically stable no signs/symptoms of withdrawal Continue Zyprexa 5mg BID as per Psychiatry Appreciate Psychiatry Input Patient refused Rehab facility Discussed with Psychiatry today:Cleared for discharge, doesn't meet Inpatient Criteria History of Opioid and Heroin Drug Abuse no signs of withdrawal H/O Psychosis Continue Olanzapine 5mg BID Appreciate Psych Input (Off Note: Will provide prescription for Olanzapine only sufficient till follow up with PCP) DVT Px: SCDs Disposition Refused Rehab placement Doesn't meet Inpatient Psych per Psych Plan to discharge home today Follow up with your PCP Dr.Taylor Louie at [facility] on Thursday at 2:30 pm. Follow up with your Psychiatrist in 1 week Seek immediate medical attention if your symptoms reoccur or worsen Total time spent on discharge = 35 minutes This includes examination of the patient, discharge planning, medication reconciliation, and communication with other providers. Discharge Instructions Discharge Instructions Date of Service Sep 22, 2017. Admission Reason for Admission: Intentional Benzodiazepine Overdose Discharge Discharge Diagnosis / Problem: Benzodiazepine Overdose Discharge Goals Goal(s): Decrease discomfort, Improve function Activity Recommendations Activity Limitations: resume your previous activity Exercise/Sports Limitations: as tolerated . Instructions / Follow-Up Instructions / Follow-Up Follow up with your PCP Dr.Taylor Louie at [facility] on Thursday at 2:30 pm. Follow up with your Psychiatrist in 1 week Seek immediate medical attention if your symptoms reoccur or worsen Current Hospital Diet Patient's current hospital diet: Regular Diet Discharge Diet Recommended Diet: Regular Diet Pending Studies Studies pending at discharge: no Medical Emergencies . Who to Call and When: Medical Emergencies: If at any time you feel your situation is an emergency, please call 911 immediately. . Non-Emergent Contact Non-Emergency issues call your: Primary Care Provider, Specialist (Psychiatrist ) Call Non-Emergent contact if: you have a fever, your pain is not controlled, your pain is worsening, your pain is unusual for you, your pain is concerning you, you have any medication questions Seek immediate medical attention if your symptoms reoccur or worsen . . "Provider Documentation" section prepared by Esau Pabon. .
[2017-09-22 15:18] VITALS: BP 123/63; PULSE 73; TEMP 36.9; O2SAT 98
[2017-09-22] MEDS: IBUPROFEN 200 MG TAB PO PRN (15:25)
[2017-09-22 15:30] VITALS: BP 123/63; PULSE 73; TEMP 36.9; O2SAT 98
== END 2017-09-22 17:33 | disposition home or self-care (01) | DRG 918 ==
LOC: EDBD 21:45 → C.EDB 21:46 → C.MED 09-19 00:16 → ENRESERV 09-19 01:01 → C.MS2W 09-21 18:56
PROVIDERS: ADMIT Internal Medicine; ATTEND Internal Medicine
DX: T42.4X2A Poisoning by benzodiazepines, intentional self-harm, initial encounter (principal); F11.20 Opioid dependence, uncomplicated; F19.10 Other psychoactive substance abuse, uncomplicated; F17.200 Nicotine dependence, unspecified, uncomplicated; Z91.14 Patient's other noncompliance with medication regimen; Y92.019 Unspecified place in single-family (private) house as the place of occurrence of the external cause

== ENCOUNTER 2019-05-14 16:38 | Inpatient (IN) ==
--- NOTE | 2019-05-14 16:50 | Emergency Department Note ---
History of Present Illness General Chief complaint: Mental Health Evaluation Stated complaint: MHID Time Seen by Provider: 05/14/19 16:40 History of Present Illness The patient is a 28-year-old female who presented to the emergency department for mental health evaluation. The patient arrived at the emergency department via police. The patient also was accompanied by a crisis delegate. Apparently the patient was noted to be walking around outside. She was not wearing shoes. Additional history was obtained from the structural worker as well as the police. Apparently they have been involved with the patient in the past because she is unable to care for herself at times. She does have a history of mental health problems and is not always compliant with medications. The patient offers no complaints at this time. She denies having any fevers or chills. She denies having any nausea or vomiting. She denies having any recent illnesses or fevers. She denies having any exposures to any one with coronavirus. She is not traveled as far as she admits to. The patient states that she was admitted for mental health problems in the past but does state that she is not taking her medications the way she is supposed to. Home Medications Home Medications Medication Instructions Recorded Confirmed Type divalproex [Depakote] 500 mg PO QPM 11/16/18 05/14/19 History trazodone 50 mg PO HS 11/16/18 05/14/19 History benztropine [Cogentin] 0.5 mg IM BID 01/13/19 05/14/19 History Allergies Allergy/AdvReac Type Severity Reaction Status Date / Time No Known Allergies Allergy Verified 05/14/19 17:08 Past Med/Surg History Medical History Benzodiazepine abuse Heroin abuse Nicotine dependence Opiate dependence (Chronic) Opiate withdrawal Underweight Unspecified psychosis (Acute) Family History Other Glaucoma Social History Preferred Language: Macedonian Communication Ability: psychotic Visual Impairment: No Limitations Hearing Ability: Normal Bus Boy Required: No Beliefs That Will Affect Care: None Feels Safe at Home: Yes Smoking Status: Current every day smoker Tobacco Type: cigarettes ; Hx Substance Use: Yes (heroin, Benzodiazepine) Review of Systems See HPI for pertinent positives & negatives. and A total of 10 systems reviewed and were otherwise negative Additional history was obtained from the police. Additional history is obtained from the structural worker. Physical Exam Vital Signs Vital Signs - 24 hr 05/14/19 16:36 05/14/19 19:00 05/14/19 21:00 Temperature 37.0 C Temperature Source Oral Pulse Rate 133 H Pulse Rate [Left] 122 H 80 Pulse Rhythm [Left] Regular Pulse Strength [Left] Normal Respiratory Rate 16 16 18 Respiratory Effort / Characteristics Non-Labored Spontaneous Non-Labored Spontaneous Non-Labored Spontaneous Respiratory Depth Normal Respiratory Pattern Regular Blood Pressure 112/87 Blood Pressure [Left Arm] 128/95 126/78 Blood Pressure Mean 95 Blood Pressure Mean [Left Arm] 106 94 Blood Pressure Position Lying Blood Pressure Position [Left Arm] Lying Sitting Pulse Oximetry 97 95 96 Oxygen Delivery Method Room Air Room Air Room Air Sepsis Recent Fever Within 48 Hours No Sepsis New/Unexplained Change in Mental Status No Sepsis Action Taken by Nursing No Action Required GENERAL: Patient is awake alert in no acute distress patient is resting comfortably and showing no signs of anxiety EYES: The conjunctivae are clear. The pupils are round and reactive. EARS, NOSE, MOUTH AND THROAT: The nose is without any evidence of any deformity. Mucous membranes are moist. Tongue is midline. NECK: The neck is nontender and supple. RESPIRATORY: Normal respiratory effort is noted there is no evidence of wheezing rhonchi or rales CARDIOVASCULAR: Regular rate and rhythm noted there no murmurs rubs or gallops normal S1 normal S2. GASTROINTESTINAL: The abdomen is soft. Abdomen is nontender. MUSCULOSKELETAL/EXTREMITIES: There is no evidence of gross deformity full range of motion is noted in the hips and shoulders. SKIN: There is no obvious evidence of any rash. There are no petechiae, pallor or cyanosis noted. NEUROLOGIC: Patient is awake alert and oriented x3 strength is symmetric patellar reflexes are 2+ bilaterally PSYCH: The patient is awake and alert. She answers questions appropriately and makes good eye contact for most of the evaluation. The patient is laughing inappropriately. She is currently denying any suicidal homicidal ideation. She is also denying any auditory or visual hallucinations. Medical Decision Making Differential Diagnosis Mood disorder, infection, hypoglycemia, electrolyte abnormalities, cardiac sources, intracerebral event, toxicologic, trauma, neurologic, as well as other pathologies. Medical Records Attestation: I reviewed the patient's medical records. Home Medications Current Medication List: was personally reviewed by me Laboratory Data Attestation: I reviewed the patient's lab results. Result diagrams: 05/14/19 16:54 05/14/19 16:54 Lab Results 05/14/19 05/14/19 05/14/19 Range/Units 16:54 16:54 16:54 WBC 6.36 (4.8-10.8) K/uL RBC 4.32 (4.2-5.4) M/uL Hgb 14.6 (12.0-16.0) g/dL Hct 41.5 (37-47) % MCV 96.1 (80-100) fL MCH 33.8 (25-34) pg MCHC 35.2 (32-36) g/dL RDW Std Deviation 47.8 H (36.4-46.3) fL RDW Coeff of Gerard 13.5 (11.5-14.5) % Plt Count 388 (130-400) K/uL MPV 9.2 (7.4-10.4) fL Immature Gran % (Auto) 0.0 % Neut % (Auto) 53.4 % Lymph % (Auto) 38.8 % [place] % (Auto) 6.1 % Eos % (Auto) 1.1 % Baso % (Auto) 0.6 % Immature Gran # (Auto) 0.00 (0.00-0.02) K/uL Neut # (Auto) 3.39 (1.4-6.5) K/uL Lymph # (Auto) 2.47 (1.2-3.4) K/uL [place] # (Auto) 0.39 (0.11-0.59) K/uL Eos # (Auto) 0.07 (0-0.5) K/uL Baso # (Auto) 0.04 (0-0.2) K/uL Sodium 138 (136-145) mmol/L Potassium 3.8 (3.5-5.1) mmol/L Chloride 105 (98-107) mmol/L Carbon Dioxide 27 (21-32) mmol/L Anion Gap 6.0 (3-11) BUN 3 L (7-18) mg/dl Creatinine 0.84 (0.6-1.2) mg/dl Est Cr Clr Drug Dosing 83.2 ml/min Est GFR ( Amer) 110.4 Est GFR (Non-Af Amer) 95.3 BUN/Creatinine Ratio 3.3 L (10-20) Glucose 85 (70-99) mg/dl Calcium 9.5 (8.5-10.1) mg/dl Total Bilirubin 0.4 (0.2-1) mg/dl AST 10 L (15-37) U/L ALT 14 (12-78) U/L Alkaline Phosphatase 93 (45-117) U/L Total Protein 8.3 H (6.4-8.2) gm/dl Albumin 4.3 (3.4-5.0) gm/dl Globulin 4.0 (2.5-4.0) gm/dl Albumin/Globulin Ratio 1.1 (0.9-2) TSH 1.200 (0.300-4.500) uIu/ml HCG, Qual (Negative) Urine Color Urine Appearance (Clear) Urine pH (4.5-7.5) Ur Specific [place] (1.000-1.030) Urine Protein (Negative) Urine Glucose (UA) (Negative) Urine Ketones (Negative) Urine Blood (Negative) Urine Nitrite (Negative) Urine Bilirubin (Negative) Urine Urobilinogen (Negative) Ur Leukocyte Esterase (Negative) Urine WBC (Auto) (0-5) /hpf Urine RBC (Auto) (0-4) /hpf U Hyaline Cast (Auto) (0-5) /lpf U Epithel Cells (Auto) (0-5) /lpf Urine Bacteria (Auto) (Negative) Urine Yeast Salicylates 3.9 (2.8-20) mg/dl Urine Opiates Screen (Neg) Ur Methadone, Qual (Neg) Acetaminophen < 2 L (10-30) ug/ml Urine Barbiturates (Neg) Valproic Acid < 3 L (50-100) mcg/ml Ur Phencyclidine (PCP) (Neg) U Amphetamin/Meth Scrn (Neg) MDMA (Ecstasy) Screen (Neg) U Benzodiazepines Scrn (Neg) Ur Cocaine Metabolite (Neg) U Marijuana (THC) Screen (Neg) Ethyl Alcohol mg/dL (0-3) mg/dl 05/14/19 05/14/19 05/14/19 Range/Units 16:54 16:54 20:10 WBC (4.8-10.8) K/uL RBC (4.2-5.4) M/uL Hgb (12.0-16.0) g/dL Hct (37-47) % MCV (80-100) fL MCH (25-34) pg MCHC (32-36) g/dL RDW Std Deviation (36.4-46.3) fL RDW Coeff of Gerard (11.5-14.5) % Plt Count (130-400) K/uL MPV (7.4-10.4) fL Immature Gran % (Auto) % Neut % (Auto) % Lymph % (Auto) % [place] % (Auto) % Eos % (Auto) % Baso % (Auto) % Immature Gran # (Auto) (0.00-0.02) K/uL Neut # (Auto) (1.4-6.5) K/uL Lymph # (Auto) (1.2-3.4) K/uL [place] # (Auto) (0.11-0.59) K/uL Eos # (Auto) (0-0.5) K/uL Baso # (Auto) (0-0.2) K/uL Sodium (136-145) mmol/L Potassium (3.5-5.1) mmol/L Chloride (98-107) mmol/L Carbon Dioxide (21-32) mmol/L Anion Gap (3-11) BUN (7-18) mg/dl Creatinine (0.6-1.2) mg/dl Est Cr Clr Drug Dosing ml/min Est GFR ( Amer) Est GFR (Non-Af Amer) BUN/Creatinine Ratio (10-20) Glucose (70-99) mg/dl Calcium (8.5-10.1) mg/dl Total Bilirubin (0.2-1) mg/dl AST (15-37) U/L ALT (12-78) U/L Alkaline Phosphatase (45-117) U/L Total Protein (6.4-8.2) gm/dl Albumin (3.4-5.0) gm/dl Globulin (2.5-4.0) gm/dl Albumin/Globulin Ratio (0.9-2) TSH (0.300-4.500) uIu/ml HCG, Qual Negative (Negative) Urine Color Urine Appearance (Clear) Urine pH (4.5-7.5) Ur Specific [place] (1.000-1.030) Urine Protein (Negative) Urine Glucose (UA) (Negative) Urine Ketones (Negative) Urine Blood (Negative) Urine Nitrite (Negative) Urine Bilirubin (Negative) Urine Urobilinogen (Negative) Ur Leukocyte Esterase (Negative) Urine WBC (Auto) (0-5) /hpf Urine RBC (Auto) (0-4) /hpf U Hyaline Cast (Auto) (0-5) /lpf U Epithel Cells (Auto) (0-5) /lpf Urine Bacteria (Auto) (Negative) Urine Yeast Salicylates (2.8-20) mg/dl Urine Opiates Screen Neg (Neg) Ur Methadone, Qual Neg (Neg) Acetaminophen (10-30) ug/ml Urine Barbiturates Neg (Neg) Valproic Acid (50-100) mcg/ml Ur Phencyclidine (PCP) Neg (Neg) U Amphetamin/Meth Scrn Pos H (Neg) MDMA (Ecstasy) Screen Pos H (Neg) U Benzodiazepines Scrn Neg (Neg) Ur Cocaine Metabolite Neg (Neg) U Marijuana (THC) Screen Neg (Neg) Ethyl Alcohol mg/dL < 3.0 (0-3) mg/dl 05/14/19 Range/Units 20:10 WBC (4.8-10.8) K/uL RBC (4.2-5.4) M/uL Hgb (12.0-16.0) g/dL Hct (37-47) % MCV (80-100) fL MCH (25-34) pg MCHC (32-36) g/dL RDW Std Deviation (36.4-46.3) fL RDW Coeff of Gerard (11.5-14.5) % Plt Count (130-400) K/uL MPV (7.4-10.4) fL Immature Gran % (Auto) % Neut % (Auto) % Lymph % (Auto) % [place] % (Auto) % Eos % (Auto) % Baso % (Auto) % Immature Gran # (Auto) (0.00-0.02) K/uL Neut # (Auto) (1.4-6.5) K/uL Lymph # (Auto) (1.2-3.4) K/uL [place] # (Auto) (0.11-0.59) K/uL Eos # (Auto) (0-0.5) K/uL Baso # (Auto) (0-0.2) K/uL Sodium (136-145) mmol/L Potassium (3.5-5.1) mmol/L Chloride (98-107) mmol/L Carbon Dioxide (21-32) mmol/L Anion Gap (3-11) BUN (7-18) mg/dl Creatinine (0.6-1.2) mg/dl Est Cr Clr Drug Dosing ml/min Est GFR ( Amer) Est GFR (Non-Af Amer) BUN/Creatinine Ratio (10-20) Glucose (70-99) mg/dl Calcium (8.5-10.1) mg/dl Total Bilirubin (0.2-1) mg/dl AST (15-37) U/L ALT (12-78) U/L Alkaline Phosphatase (45-117) U/L Total Protein (6.4-8.2) gm/dl Albumin (3.4-5.0) gm/dl Globulin (2.5-4.0) gm/dl Albumin/Globulin Ratio (0.9-2) TSH (0.300-4.500) uIu/ml HCG, Qual (Negative) Urine Color Yellow Urine Appearance Cloudy A (Clear) Urine pH 7.5 (4.5-7.5) Ur Specific [place] 1.011 (1.000-1.030) Urine Protein Negative (Negative) Urine Glucose (UA) Negative (Negative) Urine Ketones Negative (Negative) Urine Blood 2+ H (Negative) Urine Nitrite Negative (Negative) Urine Bilirubin Negative (Negative) Urine Urobilinogen Negative (Negative) Ur Leukocyte Esterase Trace H (Negative) Urine WBC (Auto) 5-10 H (0-5) /hpf Urine RBC (Auto) 0-4 (0-4) /hpf U Hyaline Cast (Auto) 1-5 (0-5) /lpf U Epithel Cells (Auto) >30 H (0-5) /lpf Urine Bacteria (Auto) 2+ H (Negative) Urine Yeast Not Reportable Salicylates (2.8-20) mg/dl Urine Opiates Screen (Neg) Ur Methadone, Qual (Neg) Acetaminophen (10-30) ug/ml Urine Barbiturates (Neg) Valproic Acid (50-100) mcg/ml Ur Phencyclidine (PCP) (Neg) U Amphetamin/Meth Scrn (Neg) MDMA (Ecstasy) Screen (Neg) U Benzodiazepines Scrn (Neg) Ur Cocaine Metabolite (Neg) U Marijuana (THC) Screen (Neg) Ethyl Alcohol mg/dL (0-3) mg/dl Blood Pressure Blood Pressure Findings: Normal blood pressure MDM Narrative The patient is a 28-year-old female who presented to the emergency department for an evaluation of mental health problems. The patient was found walking outside improperly clothed. The patient has a history of mental health problems and was not taking care of her self. She arrived at the emergency department as a 302 warrant. The patient was medically cleared in the emergency department. She was found to have some drugs in her system which could explain some of her behavior but underlying she does have schizoaffective disorder as well as psychosis. The patient was having significant symptoms upon arrival. She was very inappropriate. I do not feel that she would properly care for herself at this time and does not appear to be compliant with her medications. After the patient was medically cleared the 302 petition was upheld. At this time bed search is underway. Impression & Plan Psychosis, Drug abuse Discharge Plan Visit Data Chief Complaint: Mental Health Evaluation Stated Complaint: MHID ED Provider: Saeid Amin Discharge Problem: Psychosis, Drug abuse Patient Disposition: Transfer Behavioral Health Fac Condition: Good Forms Stand Alone Forms: My [facility], Suicide Prevention Resources Prescriptions Prescriptions: No Action trazodone 50 mg tablet 50 mg PO HS RF: 0 divalproex [Depakote] 500 mg tablet,delayed release (DR/EC) 500 mg PO QPM RF: 0 benztropine [Cogentin] 2 mg/2 mL Solution 0.5 mg IM BID RF: 0 Referrals Referrals: PCP,NO [Primary Care Provider] - Discharge Problem: Psychosis Qualifiers: Psychosis type: unspecified psychosis type Qualified Code(s): F29 - Unspecified psychosis not due to a substance or known physiological condition
[2019-05-14 17:19] LABS: Basophils # (auto) 0.04 K/uL (0-0.2); Basophils % (auto) 0.6 %; Eosinophils # (auto) 0.07 K/uL (0-0.5); Eosinophils % (auto) 1.1 %; Hematocrit (blood only) 41.5 % (37-47); Hemoglobin 14.6 g/dL (12.0-16.0); Lymphocytes # (auto) 2.47 K/uL (1.2-3.4); Lymphocytes % (auto) 38.8 %; Mean Corpuscular Hemoglobin 33.8 pg (25-34); Mean Corpuscular Hgb Conc 35.2 g/dL (32-36); Mean Corpuscular Volume 96.1 fL (80-100); Mean Platelet Volume 9.2 fL (7.4-10.4); Monocytes # (auto) 0.39 K/uL (0.11-0.59); Monocytes % (auto) 6.1 %; Neutrophils # (auto) 3.39 K/uL (1.4-6.5); Neutrophils % (auto) 53.4 %; Platelet Count 388 K/uL (130-400); RDW Coefficient of Variation 13.5 % (11.5-14.5); RDW Standard Deviation 47.8 fL (36.4-46.3); Red Blood Count 4.32 M/uL (4.2-5.4); White Blood Count 6.36 K/uL (4.8-10.8)
[2019-05-14 17:39] LABS: Pregnancy Test, Serum Negative (Negative)
[2019-05-14 17:43] LABS: Albumin Level 4.3 gm/dl (3.4-5.0); BUN Creatinine Ratio 3.3 (10-20); Calcium 9.5 mg/dl (8.5-10.1); Creatinine Clr Calc Pharmacy 83.2 ml/min; Est GFR (African American) 110.4; Est GFR (Non-African American) 95.3; Potassium 3.8 mmol/L (3.5-5.1)
[2019-05-14 17:53] LABS: Albumin Globulin Ratio 1.1 (0.9-2); Bilirubin,Total 0.4 mg/dl (0.2-1); Thyroid Stimulating Hormone 1.2 uIu/ml (0.300-4.500); Total Protein 8.3 gm/dl (6.4-8.2)
[2019-05-14 17:56] LABS: Acetaminophen < 2 ug/ml (10-30); Salicylate 3.9 mg/dl (2.8-20); Valproic Acid < 3 mcg/ml (50-100)
[2019-05-14 21:34] LABS: Appearance Urine Cloudy (Clear); Bacteria Urine Automated 2+ (Negative); Bilirubin Urine Negative (Negative); Blood Urine 2+ (Negative); Color Urine Yellow; Epithelial Cell Urine Auto >30 /lpf (0-5); Glucose Urine UA Negative (Negative); Ketones Urine Negative (Negative); Leukocyte Esterase Urine Trace (Negative); Nitrite Urine Negative (Negative); Protein Urine Negative (Negative); RBC Urine Automated 0-4 /hpf (0-4); Specific Gravity Urine 1.011 (1.000-1.030); Urobilinogen Urine Negative (Negative); pH Urine 7.5 (4.5-7.5)
[2019-05-14 21:55] LABS: Amphetamines+Metham, Urine Pos (Neg); Barbiturates, Urine Neg (Neg); Benzodiazepine, Urine Neg (Neg); Cocaine, Urine Neg (Neg); MDMA (Ecstacy), Urine Pos (Neg); Methadone, Urine Neg (Neg); Opiate, Urine Neg (Neg); Phencyclidine, Urine Neg (Neg)
[2019-05-14] MEDS ORDERED: haloperidoL 1 MG TAB PO ONE (22:31)
[2019-05-14] MEDS ORDERED: ALUMINUM/MAGNESIUM SUSP 30 ML UDC PO PRN (22:50)
[2019-05-14] MEDS ORDERED: SODIUM CHLORIDE 0.65% NA SOLN 45 ML (OCEAN) PRN (22:50)
[2019-05-14] MEDS ORDERED: BISMUTH SUBSALICYLATE PER ML OMNICELL CHARGE PO PRN (22:50)
[2019-05-14] MEDS ORDERED: MAGNESIUM HYDROXIDE SUSP 30 ML UDC PO PRN (22:50)
[2019-05-14] MEDS ORDERED: ACETAMINOPHEN 325 MG TAB PO PRN (22:50)
[2019-05-15] MEDS ORDERED: ALUMINUM/MAGNESIUM SUSP 30 ML UDC PO PRN (00:01)
[2019-05-15] MEDS ORDERED: SODIUM CHLORIDE 0.65% NA SOLN 45 ML (OCEAN) PRN (00:01)
[2019-05-15] MEDS ORDERED: ACETAMINOPHEN 325 MG TAB PO PRN (00:01)
[2019-05-15] MEDS ORDERED: MAGNESIUM HYDROXIDE SUSP 30 ML UDC PO PRN (00:01)
[2019-05-15] MEDS ORDERED: BISMUTH SUBSALICYLATE PER ML OMNICELL CHARGE PO PRN (00:01)
[2019-05-15] MEDS: haloperidoL 5 MG TAB PO PRN (09:08)
[2019-05-15] MEDS: BENZTROPINE MESYLATE 1 MG TAB PO PRN (09:08)
--- NOTE | 2019-05-15 11:21 | History & Physical ---
Date of Service May 15, 2019 Impression / Recommendations Impression 28 yo female, known to me from previous admissions, presents with manic symptoms in the setting of positive urine tox. (1) Schizoaffective disorder: The patient was admitted to the [facility] ([facility] unit) on q15 min checks (behavioral with suicide precautions) for safety. The patient will participate in group, recreational, and milieu therapies and will be offered additional individual and family sessions as clinically appropriate. Continue Haldol prns, as prone to EPS will offer Zyprexa zydis today. She did seem willing to resume/retitrate Depakote but shut down when I attempted to discuss risks/benefits/ control. Schizoaffective disorder type: bipolar Qualified Code(s): F25.0 - Schizoaffective disorder, bipolar type (2) Drug abuse: unclear current pattern of use, unable to participate in [place] due to current mental status exam. Inventory Assets Strengths: will need to reevaluate Needs: will need to reevaluate Risk Factors Assessment : Yes Do You Have Access To A Gun?: No Mental Health Diagnoses: Yes Substance Use Disorders: Yes Previous Attempt: No Previous Psychiatric Hospitalization: Yes Protective Factors Assessment : No Employed: No Psychiatric History Identifying Data MARIIA SCHWARTZ is a 28-year-old F who currently lives in [place] with her father, has a history of multiple 302 for disorganized and aggressive behavior related to schizoaffective disorder and polysubstance use hx, and was admitted on 05/14/19 22:50 on a 302 involuntary commitment for inability to care for self. Chief Complaint "I'll stay 3-5 days, I lost my shoes". History of Present Illness Mariia was found wandering without shoes, disorganized, laughing inappropriately to self as if responding to internal stimuli. She has a few horizontal superficial cuts to her left forearm which she refuses to show me today. She told another staff that someone else did it but she is a very unreliable historian. Unclear why/when she left the [facility] and states that she hasn't taken medication for probably "5 months" because she didn't need it anymore. Says she's sad to be here then laughs inappropriately. She has taken 2 doses of Haldol so far, 1 in ED and one this am with Cogentin and appears to tolerate without EPS. Of note tox screen in ED positive for MDMA and methamphetamines, negative for opiates. She denies drug use. Past Psychiatric History Current Psychiatric Diagnosis: Chart indicates schizoaffective dis. 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 Do You Have Access To A Gun?: No History of Previous Suicide Attempt: No Describe Attempts in the Past: Denies/None Past Medication Trials: Depakote, trazodone, cogentin, Zyprexa, Invega injectable, Artane, Seroquel, Xanax, Abilify, Wellbutrin, suboxone Past Head Trauma/Neuro History History of Concussion/Seizure: No Allergies Allergy/AdvReac Type Severity Reaction Status Date / Time No Known Allergies Allergy Verified 05/14/19 17:08 Home Medications Home Medications Medication Instructions Recorded Confirmed Type benztropine 0.5 mg PO BID PRN 05/14/19 05/14/19 History divalproex 500 mg PO BID 05/14/19 05/14/19 History hydroxyzine pamoate 50 mg PO Q6 PRN 05/14/19 05/14/19 History Family History Family History of: Doesn't Know Family Mental Health History Comment: Laughting inappropriately Alcohol History Hx of Alcohol Use Over the Past 12 Months: No (Pt. denies and laughs to self.) Smoking Use Have You Smoked or Used Tobacco Products in the Last 30 Days: Yes tobacco type: cigarettes Smoking Status: Current every day smoker Smoking packs per day: 1 Substance History Hx of Prescription Med Misuse Over the Past 12 Months: No (Pt. denies and laughs to self.) Hx of Over the Counter Med Misuse Over the Past 12 Months: No (Pt. denies and laughs to self.) Hx of Inhalent Misuse Over the Past 12 Months: No (Pt. denies and laughs to self.) Hx of Organic Substance Use Over the Past 12 Months: Yes (Pt. states she doesn't want to talk about it.) Hx of Illegal Substances/Street Drug Use Over Past 12 Months: Yes (Pt. states she doesn't want to talk about it.) Problems as a Result of Past Substance Use: Other Problems as a Result of Past Substance Use Comments: Pt. states she doesn't want to talk about it; UDS positive Personal History Living Arrangements: Home Highest Grade Completed Comment: 11th grade Employment Status: Unemployed Marital Status: Single Beliefs That Will Affect Care: None Additional Comments: she is not able to provide updated social history due to her MSE at this time. Patient History Medical History Benzodiazepine abuse Heroin abuse Nicotine dependence Opiate dependence (Chronic) Opiate withdrawal Underweight Unspecified psychosis (Acute) Family History Other Glaucoma Social History Preferred Language: Kinyarwanda Communication Ability: psychotic Visual Impairment: No Limitations Hearing Ability: Normal Soil Fertility Extension Specialist Required: No Beliefs That Will Affect Care: None Feels Safe at Home: Yes Smoking Status: Current every day smoker Tobacco Type: cigarettes ; Hx Substance Use: Yes (heroin, Benzodiazepine) Review of Systems Review of Systems: All systems reviewed & are unremarkable except as noted in HPI & below Physical Exam Psychiatric: Orientation: alert and + guarded; + uncooperative Apperance: + disheveled Eye Contact: + poor eye contact restless Speech: + abnormal rate/rhythm/volume of speech Affect: + elated affect; + mood not congruent with affect elevated Thought Process: + incoherent thought process Thought Content: + paranoid Suicidal Thoughts: denies suicidal thoughts Homicidal Thoughts: denies homicidal thoughts Hallucinations: + auditory hallucinations (though denies, clearly responding to internal stimuli); no v isual hallucinations Cognition: language grossly intact; + attention not intact Estimated Intelligence: consistent with education level Insight: + severely impaired insight Judgement: + severely impaired judgement Vital Signs (Past 24 Hours): Last Vital Signs Temp 37 C 05/15/19 00:07 Pulse 114 H 05/15/19 01:20 Resp 16 05/15/19 00:07 BP 129/90 05/15/19 00:07 Pulse Ox 99 05/15/19 00:07 Results & Data ([facility]) Laboratory Results Laboratory Results - last 24 hr 05/14/19 05/14/19 05/14/19 16:54 16:54 16:54 WBC 6.36 RBC 4.32 Hgb 14.6 Hct 41.5 MCV 96.1 MCH 33.8 MCHC 35.2 RDW Std Deviation 47.8 H RDW Coeff of Gerard 13.5 Plt Count 388 MPV 9.2 Immature Gran % (Auto) 0.0 Neut % (Auto) 53.4 Lymph % (Auto) 38.8 Orange % (Auto) 6.1 Eos % (Auto) 1.1 Baso % (Auto) 0.6 Immature Gran # (Auto) 0.00 Neut # (Auto) 3.39 Lymph # (Auto) 2.47 Orange # (Auto) 0.39 Eos # (Auto) 0.07 Baso # (Auto) 0.04 Sodium 138 Potassium 3.8 Chloride 105 Carbon Dioxide 27 Anion Gap 6.0 BUN 3 L Creatinine 0.84 Est Cr Clr Drug Dosing 83.2 Est GFR ( Amer) 110.4 Est GFR (Non-Af Amer) 95.3 BUN/Creatinine Ratio 3.3 L Glucose 85 Calcium 9.5 Total Bilirubin 0.4 AST 10 L ALT 14 Alkaline Phosphatase 93 Total Protein 8.3 H Albumin 4.3 Globulin 4.0 Albumin/Globulin Ratio 1.1 TSH 1.200 HCG, Qual Urine Color Urine Appearance Urine pH Ur Specific [place] Urine Protein Urine Glucose (UA) Urine Ketones Urine Blood Urine Nitrite Urine Bilirubin Urine Urobilinogen Ur Leukocyte Esterase Urine WBC (Auto) Urine RBC (Auto) U Hyaline Cast (Auto) U Epithel Cells (Auto) Urine Bacteria (Auto) Urine Yeast Salicylates 3.9 Urine Opiates Screen Ur Methadone, Qual Acetaminophen < 2 L Urine Barbiturates Valproic Acid < 3 L Ur Phencyclidine (PCP) U Amphetamines Confirm U Amphetamin/Meth Scrn U Methamphetamin Confrm Urine MDEA MDMA (Ecstasy) Screen MDMA Urine MDMA U Benzodiazepines Scrn Ur Cocaine Metabolite U Marijuana (THC) Screen Drug Screen Comment Ethyl Alcohol mg/dL 05/14/19 05/14/19 05/14/19 16:54 16:54 20:10 WBC RBC Hgb Hct MCV MCH MCHC RDW Std Deviation RDW Coeff of Gerard Plt Count MPV Immature Gran % (Auto) Neut % (Auto) Lymph % (Auto) Orange % (Auto) Eos % (Auto) Baso % (Auto) Immature Gran # (Auto) Neut # (Auto) Lymph # (Auto) Orange # (Auto) Eos # (Auto) Baso # (Auto) Sodium Potassium Chloride Carbon Dioxide Anion Gap BUN Creatinine Est Cr Clr Drug Dosing Est GFR ( Amer) Est GFR (Non-Af Amer) BUN/Creatinine Ratio Glucose Calcium Total Bilirubin AST ALT Alkaline Phosphatase Total Protein Albumin Globulin Albumin/Globulin Ratio TSH HCG, Qual Negative Urine Color Urine Appearance Urine pH Ur Specific [place] Urine Protein Urine Glucose (UA) Urine Ketones Urine Blood Urine Nitrite Urine Bilirubin Urine Urobilinogen Ur Leukocyte Esterase Urine WBC (Auto) Urine RBC (Auto) U Hyaline Cast (Auto) U Epithel Cells (Auto) Urine Bacteria (Auto) Urine Yeast Salicylates Urine Opiates Screen Neg Ur Methadone, Qual Neg Acetaminophen Urine Barbiturates Neg Valproic Acid Ur Phencyclidine (PCP) Neg U Amphetamines Confirm U Amphetamin/Meth Scrn Pos H U Methamphetamin Confrm Urine MDEA MDMA (Ecstasy) Screen Pos H MDMA Urine MDMA U Benzodiazepines Scrn Neg Ur Cocaine Metabolite Neg U Marijuana (THC) Screen Neg Drug Screen Comment Ethyl Alcohol mg/dL < 3.0 05/14/19 05/14/19 20:10 20:10 WBC RBC Hgb Hct MCV MCH MCHC RDW Std Deviation RDW Coeff of Gerard Plt Count MPV Immature Gran % (Auto) Neut % (Auto) Lymph % (Auto) Orange % (Auto) Eos % (Auto) Baso % (Auto) Immature Gran # (Auto) Neut # (Auto) Lymph # (Auto) Orange # (Auto) Eos # (Auto) Baso # (Auto) Sodium Potassium Chloride Carbon Dioxide Anion Gap BUN Creatinine Est Cr Clr Drug Dosing Est GFR ( Amer) Est GFR (Non-Af Amer) BUN/Creatinine Ratio Glucose Calcium Total Bilirubin AST ALT Alkaline Phosphatase Total Protein Albumin Globulin Albumin/Globulin Ratio TSH HCG, Qual Urine Color Yellow Urine Appearance Cloudy A Urine pH 7.5 Ur Specific [place] 1.011 Urine Protein Negative Urine Glucose (UA) Negative Urine Ketones Negative Urine Blood 2+ H Urine Nitrite Negative Urine Bilirubin Negative Urine Urobilinogen Negative Ur Leukocyte Esterase Trace H Urine WBC (Auto) 5-10 H Urine RBC (Auto) 0-4 U Hyaline Cast (Auto) 1-5 U Epithel Cells (Auto) >30 H Urine Bacteria (Auto) 2+ H Urine Yeast Not Reportable Salicylates Urine Opiates Screen Ur Methadone, Qual Acetaminophen Urine Barbiturates Valproic Acid Ur Phencyclidine (PCP) U Amphetamines Confirm Pending U Amphetamin/Meth Scrn U Methamphetamin Confrm Pending Urine MDEA Pending MDMA (Ecstasy) Screen MDMA Pending Urine MDMA Pending U Benzodiazepines Scrn Ur Cocaine Metabolite U Marijuana (THC) Screen Drug Screen Comment Pending Ethyl Alcohol mg/dL Current Inpatient Medications Current Inpatient Medications: Current Inpatient Medications Acetaminophen (Tylenol) 650 mg PO Q4H PRN PRN Reason: Headache or Minor Fever Stop: 06/13/19 22:49 Al Hydrox/Mg Hydrox/Simethicone (Maalox) 30 ml PO Q4H PRN PRN Reason: GI Upset Stop: 06/13/19 22:49 Benztropine Mesylate (Cogentin) 1 mg PO BID PRN PRN Reason: EPS Stop: 06/14/19 00:09 Last Admin: 05/15/19 09:08 Dose: 1 mg Documented by: Bismuth Subsalicylate (Kaopectate) 15 ml PO PRN PRN PRN Reason: Loose Stool Stop: 06/13/19 22:49 Haloperidol (Haldol) 5 mg PO Q4 PRN PRN Reason: psychosis Stop: 06/14/19 00:08 Last Admin: 05/15/19 09:08 Dose: 5 mg Documented by: Hydroxyzine HCl (Vistaril) 50 mg PO HSZ PRN PRN Reason: Insomnia Stop: 06/13/19 22:49 Hydroxyzine HCl (Vistaril) 25 mg PO Q4H PRN PRN Reason: Anxiety Stop: 06/13/19 22:49 Magnesium Hydroxide (Milk Of Magnesia) 30 ml PO DAILY PRN PRN Reason: Constipation Stop: 06/13/19 22:49 Sodium Chloride ([place] Nasal) 1 - 2 sprays NA PRN PRN PRN Reason: Nasal Dryness/Congestion Stop: 06/13/19 22:49
[2019-05-15] MEDS: OLANZAPINE ZYDIS 5 MG ORALLY DIS. TAB PO SCH ×2 (12:10→21:10)
[2019-05-15] MEDS ORDERED: cloNIDine HCL 0.1 MG TAB PO PRN (13:07)
[2019-05-15] MEDS: NICOTINE 14 MG/24 HR PATCH TD SCH ×2 (21:09→22:06)
[2019-05-16] MEDS: OLANZAPINE ZYDIS 5 MG ORALLY DIS. TAB PO SCH ×2 (08:34→21:26)
[2019-05-16] MEDS: NICOTINE 14 MG/24 HR PATCH TD SCH (08:36)
--- NOTE | 2019-05-16 11:03 | Psychiatric Progress Note ---
Date of Service May 16, 2019 Impression / Recommendations Impression 28 yo female, known to me from previous admissions, presents with manic symptoms in the setting of positive urine tox. More organized today following doses of Zyprexa. (1) Schizoaffective disorder: 05/14--The patient was admitted to the [facility] ([facility] unit) on q15 min checks (behavioral with suicide precautions) for safety. The patient will participate in group, recreational, and milieu therapies and will be offered additional individual and family sessions as clinically appropriate. Continue Haldol prns, as prone to EPS will offer Zyprexa zydis today. She did seem willing to resume/retitrate Depakote but shut down when I attempted to discuss risks/benefits/ control. 05/15--benefiting from Zyprexa, states she would like to continue it. Willing to take meds when leaves hospital but states "when I'm good I don't need them". (2) Drug abuse: 05/14 unclear current pattern of use, unable to participate in [place] due to current mental status exam. 05/15 patient refuses to discuss Inventory Assets Strengths: will need to reevaluate Needs: will need to reevaluate Risk Factors Assessment : Yes Do You Have Access To A Gun?: No Mental Health Diagnoses: Yes Substance Use Disorders: Yes Previous Attempt: No Previous Psychiatric Hospitalization: Yes Protective Factors Assessment : No Employed: No Interval History Chief Complaint "I'm good. was sad. What?". Review of Systems Sleep Information Total Hours of Sleep: 10.75 Sleep Comments: pt on q-15 minute checks Meal Information Percent Meal Consumed - Breakfast: 50 Percent Meal Consumed - Lunch: 0 Percent Meal Consumed - Dinner: 0 Nutrition Comment: patient asleep Subjective Subjective Patient was seen & assessed and interval progress reviewed with treatment team (nursing and social work), feels calmer after doses of Zyprexa. There appears to be less delay in response time. She won't discuss drug use prior to admission. Remains tachy at times but doesn't appear restless. no GI complaints or rhinorrhea. BP tends to be low but she doesn't complain of any dizziness. Smiles and laughs inappropriately and talks to self. Physical Exam Psychiatric Orientation: alert superficially cooperative Apperance: + disheveled Eye Contact: + fair eye contact Motor Behavior: n EPS and n tremor Speech: normal rate/rhythm/volume of speech Affect: + elated affect; + mood not congruent with affect Mood: + dysphoric mood Thought Process: + concrete thought process Thought Content: + paranoid Suicidal Thoughts: denies suicidal thoughts Homicidal Thoughts: denies homicidal thoughts Hallucinations: + auditory hallucinations (though denies, clearly responding to internal stimuli); no visual hallucinations Cognition: language grossly intact; + attention not intact Estimated Intelligence: consistent with education level Insight: + severely impaired insight Judgement: + severely impaired judgement Vital Signs (Past 24 Hours) Last Vital Signs Temp 36.5 C 05/16/19 07:59 Pulse 121 H 05/16/19 07:59 Resp 16 05/16/19 07:59 BP 88/60 L 05/16/19 07:59 Pulse Ox 99 05/15/19 21:00 Results & Data ([facility]) Current Inpatient Medications Current Inpatient Medications: Current Inpatient Medications Acetaminophen (Tylenol) 650 mg PO Q4H PRN PRN Reason: Headache or Minor Fever Stop: 06/13/19 22:49 Al Hydrox/Mg Hydrox/Simethicone (Maalox) 30 ml PO Q4H PRN PRN Reason: GI Upset Stop: 06/13/19 22:49 Benztropine Mesylate (Cogentin) 1 mg PO BID PRN PRN Reason: EPS Stop: 06/14/19 00:09 Last Admin: 05/15/19 09:08 Dose: 1 mg Documented by: Bismuth Subsalicylate (Kaopectate) 15 ml PO PRN PRN PRN Reason: Loose Stool Stop: 06/13/19 22:49 Clonidine HCl (Catapres) 0.1 mg PO Q4HWA PRN PRN Reason: Palpitations Stop: 06/14/19 15:59 Haloperidol (Haldol) 5 mg PO Q4 PRN PRN Reason: psychosis Stop: 06/14/19 00:08 Last Admin: 05/15/19 09:08 Dose: 5 mg Documented by: Hydroxyzine HCl (Vistaril) 50 mg PO HSZ PRN PRN Reason: Insomnia Stop: 06/13/19 22:49 Hydroxyzine HCl (Vistaril) 25 mg PO Q4H PRN PRN Reason: Anxiety Stop: 06/13/19 22:49 Magnesium Hydroxide (Milk Of Magnesia) 30 ml PO DAILY PRN PRN Reason: Constipation Stop: 06/13/19 22:49 Miscellaneous (Remove Nicoderm Patch) 1 ea N/A QAM MEKA Stop: 06/15/19 08:59 Last Admin: 05/16/19 08:36 Dose: 1 ea Documented by: Nicotine (Nicoderm Cq) 14 mg TD QAM [facility] Stop: 06/14/19 13:14 Last Admin: 05/16/19 08:36 Dose: 14 mg Documented by: Olanzapine (Zyprexa Zydis Od) 5 mg PO BID [facility] Stop: 06/14/19 11:44 Last Admin: 05/16/19 08:34 Dose: 5 mg Documented by: Sodium Chloride ([place] Nasal) 1 - 2 sprays NA PRN PRN PRN Reason: Nasal Dryness/Congestion Stop: 06/13/19 22:49 Mental Health & Subst Abuse Tx Therapist Name of Therapist: Denies/None Rail Signal Mechanic Name of Rail Signal Mechanic: Denies/None Post Discharge Appointments Primary Care Physician Name Of Family Doctor: Denies/None (1) Schizoaffective disorder Schizoaffective disorder type: bipolar Qualified Code(s): F25.0 - Schizoaffective disorder, bipolar type
[2019-05-17] MEDS: haloperidoL 5 MG TAB PO PRN (01:22)
[2019-05-17] MEDS: BENZTROPINE MESYLATE 1 MG TAB PO PRN (01:22)
[2019-05-17] MEDS ORDERED: OLANZAPINE ZYDIS 10 MG ORALLY DIS. TAB PO STA (02:36)
--- NOTE | 2019-05-17 08:27 | Psychiatric Progress Note ---
Date of Service May 17, 2019 Impression / Recommendations Impression 28 yo female, known to me from previous admissions, presents with manic symptoms in the setting of methamphetamine abuse. She was more organized yesterday following doses of Zyprexa, but was awake all night and appeared psychotic, and sleeping all day today. Her father has stated she cannot return to live with her, and will need to assess her other resources as she is refusing OP care and return to [facility]. (1) Schizoaffective disorder: 05/14--The patient was admitted to the [facility] ([facility] unit) on q15 min checks (behavioral with suicide precautions) for safety. The patient will participate in group, recreational, and milieu therapies and will be offered additional individual and family sessions as clinically appropriate. Continue Haldol prns, as prone to EPS will offer Zyprexa zydis today. She did seem willing to resume/retitrate Depakote but shut down when I attempted to discuss risks/benefits/ control. 05/15--benefiting from Zyprexa, states she would like to continue it. Willing to take meds when leaves hospital but states "when I'm good I don't need them". 05/16--Continue olanzapine. -Patient refusing BCM, outpatient care. unsure where she will live at discharge, as cannot return to father's house. Continue to gather information towards the need for ongoing involuntary inpatient treatment. (2) Drug abuse: 05/14 unclear current pattern of use, unable to participate in MO due to current mental status exam. 05/15 patient refuses to discuss Inventory Assets Strengths: will need to reevaluate Needs: will need to reevaluate Risk Factors Assessment : Yes Do You Have Access To A Gun?: No Mental Health Diagnoses: Yes Substance Use Disorders: Yes Previous Attempt: No Previous Psychiatric Hospitalization: Yes Protective Factors Assessment : No Employed: No Interval History Identifying Information LUCERO SCHWARTZ is a 28-year-old F who currently lives in [place] with her father, has a history of multiple 302 for disorganized and aggressive behavior related to schizoaffective disorder and polysubstance use hx, and was admitted on 05/14/19 22:50 on a 302 involuntary commitment for inability to care for self. Chief Complaint No response. Review of Systems Sleep Information Total Hours of Sleep: 2.25 Sleep Comments: patient manic/psychotic, responding to internal stimuli Meal Information Percent Meal Consumed - Breakfast: 50 Percent Meal Consumed - Lunch: 100 Percent Meal Consumed - Dinner: 75 Nutrition Comment: patient asleep Subjective Subjective Patient was seen & assessed and interval progress reviewed with nursing and social work. Staff report she continues to refuse outpatient services, and although she agreed to referral for a BCM, once she was on the phone with them, she declined services. She is taking olanzapine here, but refusing outpatient treatment, stating she doesn't need it. Social work talked to her father, who stated that she has been staying with him "off and on" for a week or two at a time, and then leaves for a week or two at a time. She will "up and leave" without stating anything to him. She often goes to her brother Mj's house and uses drugs, mostly meth, and when she returns "she's a Looney Toon." Prior to admission she had been awake for 3 days and 3 nights. She typically stops all medication once she is discharged from the hospital and stopped case management services with [facility] a few months ago. He stated she could not come stay with him, as "I'm at my wit's end with her. I don't know what to do anymore for her." She was most recently at [facility] for 30 days, and has been hospitalized at [facility] and [place], where a referral to [facility] was started, but she "will always manipulate people into thinking she's okay and they let her go." After she was discharged from [facility] in 2018, she went to the [facility] where she did well with medication compliance but was discharged from the service due to drug use. He has attempted to 302 pt several times but she manipulates staff and is released. She agreed to contact the [facility] for case management services, but when she was on the phone with them, declined services so the referral was not completed. Although she is accepting medication here, she is saying she doesn't need it when she leaves, and doesn't need outpatient follow up. Throughout the day and overnight she was observed talking to herself, laughing loudly without stimulus, and appeared to be responding to unseen others. She was disruptive, dancing and singing in the group room. Overnight she would not sleep, was yelling out loudly, and became increasingly irritable. Nursing attempted to check on patient, she was blocking the door and stated "don't come in here, I'm changing, do you wanna see my snatch?", she then touched her vagina and wiped her hand on the nurse's hand. Patient then approached the nurses station and requested juice. Patient was given juice then offered and accepted PRN Haldol and Cogentin. She did not sleep all night, and received a NOW dose of Zyprexa Zydis 10mg PO or IM. Patient accepted medication PO without difficulty. Attempted to see her several times today, she was sleeping soundly and would only awake slightly before falling back asleep. Did not awake enough to answer questions or respond verbally. Physical Exam Psychiatric Orientation: + uncooperative asleep Apperance: appropriately dressed and + disheveled thin, younger than stated age Eye Contact: + poor eye contact asleep nonverbal could not assess thoughts due to somnolence Vital Signs (Past 24 Hours) Last Vital Signs Temp 36.9 C 05/16/19 20:59 Pulse 127 H 05/16/19 20:59 Resp 16 05/16/19 20:59 BP 99/73 L 05/16/19 20:59 Pulse Ox 99 05/15/19 21:00 Results & Data ([facility]) Current Inpatient Medications Current Inpatient Medications: Current Inpatient Medications Acetaminophen (Tylenol) 650 mg PO Q4H PRN PRN Reason: Headache or Minor Fever Stop: 06/13/19 22:49 Al Hydrox/Mg Hydrox/Simethicone (Maalox) 30 ml PO Q4H PRN PRN Reason: GI Upset Stop: 06/13/19 22:49 Benztropine Mesylate (Cogentin) 1 mg PO BID PRN PRN Reason: EPS Stop: 06/14/19 00:09 Last Admin: 05/17/19 01:22 Dose: 1 mg Documented by: Bismuth Subsalicylate (Kaopectate) 15 ml PO PRN PRN PRN Reason: Loose Stool Stop: 06/13/19 22:49 Clonidine HCl (Catapres) 0.1 mg PO Q4HWA PRN PRN Reason: Palpitations Stop: 06/14/19 15:59 Haloperidol (Haldol) 5 mg PO Q4 PRN PRN Reason: psychosis Stop: 06/14/19 00:08 Last Admin: 05/17/19 01:22 Dose: 5 mg Documented by: Hydroxyzine HCl (Vistaril) 50 mg PO HSZ PRN PRN Reason: Insomnia Stop: 06/13/19 22:49 Hydroxyzine HCl (Vistaril) 25 mg PO Q4H PRN PRN Reason: Anxiety Stop: 06/13/19 22:49 Magnesium Hydroxide (Milk Of Magnesia) 30 ml PO DAILY PRN PRN Reason: Constipation Stop: 06/13/19 22:49 Miscellaneous (Remove Nicoderm Patch) 1 ea N/A QAM [facility] Stop: 06/15/19 08:59 Last Admin: 05/16/19 08:36 Dose: 1 ea Documented by: Nicotine (Nicoderm Cq) 14 mg TD QAM [facility] Stop: 06/14/19 13:14 Last Admin: 05/16/19 08:36 Dose: 14 mg Documented by: Olanzapine (Zyprexa Zydis Od) 5 mg PO BID [facility] Stop: 06/14/19 11:44 Last Admin: 05/16/19 21:26 Dose: 5 mg Documented by: Sodium Chloride ([place] Nasal) 1 - 2 sprays NA PRN PRN PRN Reason: Nasal Dryness/Congestion Stop: 06/13/19 22:49 Mental Health & Subst Abuse Tx Therapist Name of Therapist: Denies/None Yarn Tester Name of Yarn Tester: [facility] Phone Number for Yarn Tester: [phone] Post Discharge Appointments Primary Care Physician Name Of Family Doctor: Denies/None Contact Information Discharge (1) Schizoaffective disorder Schizoaffective disorder type: bipolar Qualified Code(s): F25.0 - Schizoaffective disorder, bipolar type
[2019-05-17] MEDS: NICOTINE 14 MG/24 HR PATCH TD SCH ×2 (10:00→20:40)
[2019-05-17] MEDS: OLANZAPINE ZYDIS 5 MG ORALLY DIS. TAB PO SCH ×2 (10:00→19:57)
[2019-05-18 07:05] LABS: Amphetamine Urine, Confirm 3870 ng/mL (<250); MDA negative; MDEA negative; MDMA (Ecstasy) Urine, Confirm negative; Methamphetamine, Ur Confirm >15000 ng/mL (<250)
--- NOTE | 2019-05-18 08:09 | Psychiatric Progress Note ---
Date of Service May 18, 2019 Impression / Recommendations Impression 28-year-old female, known to our unit from several previous admissions, presents with manic symptoms in the setting of methamphetamine abuse. Pt has been sleeping for most of her hospitalization; but was more interactive and alert in the past 1-2 days. She continues to receive olanzapine scheduled, and clonidine as needed throughout the day. Pt does appear to be responding to internal stimuli, speaking when no one is in the room, and listening to music very loudly on the unit. Discussion was had between staff and patient's father - who is now reporting willingness for patient to return home on discharge. Father reportedly stated that he believes her presentation is largely related to her methamphetamine use, and that he would take her home tomorrow at the expiration of her 302 tomorrow evening. Pt continues to refuse recommended services offered by our team, to include a psychiatrist, therapist, case management, and substance abuse treatment. (1) Schizoaffective disorder: 05/14--The patient was admitted to the [facility] ([facility] mental health unit) on q15 min checks (behavioral with suicide precautions) for safety. The patient will participate in group, recreational, and milieu therapies and will be offered additional individual and family sessions as clinically appropriate. Continue Haldol prns, as prone to EPS will offer Zyprexa zydis today. She did seem willing to resume/retitrate Depakote but shut down when I attempted to discuss risks/benefits/ control. 05/15--benefiting from Zyprexa, states she would like to continue it. Willing to take meds when leaves hospital but states "when I'm good I don't need them". 05/16--Continue olanzapine. -Patient refusing BCM, outpatient care. unsure where she will live at discharge, as cannot return to father's house. Continue to gather information towards the need for ongoing involuntary inpatient treatment. 05/17 - Continue olanzapine - Pt continues to refuse recommendations for outpatient psychiatric services - Pt is aware that father has changed his mind and is willing to accept her back home; he is able to pick her up tomorrow afternoon and does not feel patient will be agreeable with recommended outpatient treatment - Will continue to coordinate discharge plans with patient and father (2) Drug abuse: 05/14 unclear current pattern of use, unable to participate in MD due to current mental status exam. 4/6 patient refuses to discuss 8 - Continues to refuse to discuss substance abuse or available treatment options Inventory Assets Strengths: will need to reevaluate Needs: will need to reevaluate Risk Factors Assessment : Yes Do You Have Access To A Gun?: No Mental Health Diagnoses: Yes Substance Use Disorders: Yes Previous Attempt: No Previous Psychiatric Hospitalization: Yes Protective Factors Assessment : No Employed: No Interval History Identifying Information LUCERO SCHWARTZ is a 28-year-old F who currently lives in [place] with her father, has a history of multiple 302 for disorganized and aggressive behavior related to schizoaffective disorder and polysubstance use hx, and was admitted on 05/14/19 22:50 on a 302 involuntary commitment for inability to care for self. Chief Complaint "Great. I'm doing just fine, super happy." (said in sarcastic tone, though denies being cynical with these comments). Review of Systems Notes Constitutional: reports improved sleep Cardiovascular: denied Respiratory: denied Gastrointestinal: denied Neurological: denied Psychiatric: denies symptoms other than stated above Total of at least 10 systems reviewed, pertinent positives as above and in HPI. Sleep Information Total Hours of Sleep: 8.25 Sleep Comments: pt appeared to sleep the whole day and during the night. pt was awake only from 1930 - 2129. pt on q-15 minute checks Meal Information Percent Meal Consumed - Breakfast: 0 Percent Meal Consumed - Lunch: 100 Percent Meal Consumed - Dinner: 50 Nutrition Comment: patient asleep Subjective Subjective Patient was seen & assessed and interval progress reviewed with treatment team. Staff report the patient has been sleeping most of her hospitalization, though has been a bit more interactive today. Father reported the patient is permitted to return home, and he reported feeling comfortable with patient being discharged tomorrow at the expiration of her 302. Pt was seen today to assess progress since admission. Pt was observed in her room, with radio playing very loudly. Pt did agree to turn down the music in order for a discussion with this provider. Pt states she is "great. I'm doing just fine, super happy." Pt presents this statement with a sarcastic tone, though denies that she is being cynical when asked directly about this. Pt states that her goal for this admission was to "work on being happier" and she feels she has achieved this. Pt reports that she has been sleeping well, denying feeling as though her excessive sleeping during this admission is a concern. During our encounter she is alert and listening to music loudly in her room - stating this is what she plans to do the rest of the day. Numerous attempts were made to direct conversation into deeper topics; however, patient was resistant to this and continued to divert the conversation toward more superficial discussions. Pt refuses offer for any outpatient psychiatric services at this time. She denies safety concerns. Pt was made aware that her father is planning to pick her up tomorrow afternoon and is allowing her to return home with him. Pt denies other needs or concerns today and reports feeling comfortable with discharge tomorrow. Physical Exam Psychiatric Orientation: alert and + guarded (only superficially cooperative ) Apperance: appropriately dressed Eye Contact: good eye contact Motor Behavior: steady gait and station and + psychomotor agitation (appearing restless, frequently pacing ) Speech: normal rate/rhythm/volume of speech Affect: euthymic affect and + constricted affect Mood: no depressed mood ("I'm doing great") Thought Process: goal directed thought process and + circumstantial thought process Thought Content: + preoccupation (with discharge) Suicidal Thoughts: denies suicidal thoughts Homicidal Thoughts: denies homicidal thoughts Hallucinations: + auditory hallucinations (patient actively responding to internal stimuli ) Observed to be laughing intermittently, periodically speaking to herself Cognition: attention grossly intact and language grossly intact Insight: + poor insight (chronically poor ) Judgement: + poor judgement (chronically poor ) Vital Signs (Past 24 Hours) Last Vital Signs Temp 36.9 C 05/16/19 20:59 Pulse 127 H 05/16/19 20:59 Resp 16 05/16/19 20:59 BP 99/73 L 05/16/19 20:59 Pulse Ox 99 05/15/19 21:00 Results & Data ([facility]) Laboratory Results Laboratory Results - last 24 hr 05/14/19 20:10 U Amphetamines Confirm 3870 H U Methamphetamin Confrm >31967 H Urine MDEA negative MDMA negative Urine MDMA negative Drug Screen Comment SEE NOTE Current Inpatient Medications Current Inpatient Medications: Current Inpatient Medications Acetaminophen (Tylenol) 650 mg PO Q4H PRN PRN Reason: Headache or Minor Fever Stop: 06/13/19 22:49 Al Hydrox/Mg Hydrox/Simethicone (Maalox) 30 ml PO Q4H PRN PRN Reason: GI Upset Stop: 06/13/19 22:49 Benztropine Mesylate (Cogentin) 1 mg PO BID PRN PRN Reason: EPS Stop: 06/14/19 00:09 Last Admin: 05/17/19 01:22 Dose: 1 mg Documented by: Bismuth Subsalicylate (Kaopectate) 15 ml PO PRN PRN PRN Reason: Loose Stool Stop: 06/13/19 22:49 Clonidine HCl (Catapres) 0.1 mg PO Q4HWA PRN PRN Reason: Palpitations Stop: 06/14/19 15:59 Haloperidol (Haldol) 5 mg PO Q4 PRN PRN Reason: psychosis Stop: 06/14/19 00:08 Last Admin: 05/17/19 01:22 Dose: 5 mg Documented by: Hydroxyzine HCl (Vistaril) 50 mg PO HSZ PRN PRN Reason: Insomnia Stop: 06/13/19 22:49 Hydroxyzine HCl (Vistaril) 25 mg PO Q4H PRN PRN Reason: Anxiety Stop: 06/13/19 22:49 Magnesium Hydroxide (Milk Of Magnesia) 30 ml PO DAILY PRN PRN Reason: Constipation Stop: 06/13/19 22:49 Miscellaneous (Remove Nicoderm Patch) 1 ea N/A QAM [facility] Stop: 06/15/19 08:59 Last Admin: 05/17/19 10:00 Dose: Not Given Documented by: Nicotine (Nicoderm Cq) 14 mg TD QAM [facility] Stop: 06/14/19 13:14 Last Admin: 05/17/19 20:40 Dose: 14 mg Documented by: Olanzapine (Zyprexa Zydis Od) 5 mg PO BID [facility] Stop: 06/14/19 11:44 Last Admin: 05/17/19 19:57 Dose: 5 mg Documented by: Sodium Chloride ([place] Nasal) 1 - 2 sprays NA PRN PRN PRN Reason: Nasal Dryness/Congestion Stop: 06/13/19 22:49 Mental Health & Subst Abuse Tx Therapist Name of Therapist: Denies/None Post Discharge Appointments Primary Care Physician Name Of Family Doctor: Denies/None Contact Information Discharge (1) Schizoaffective disorder Schizoaffective disorder type: bipolar Qualified Code(s): F25.0 - Schizoaffective disorder, bipolar type
[2019-05-18] MEDS: OLANZAPINE ZYDIS 5 MG ORALLY DIS. TAB PO SCH ×2 (08:20→20:44)
[2019-05-18] MEDS: NICOTINE 14 MG/24 HR PATCH TD SCH (10:20)
[2019-05-18] MEDS: BENZTROPINE MESYLATE 1 MG TAB PO PRN (19:49)
[2019-05-18] MEDS: haloperidoL 5 MG TAB PO PRN (19:51)
[2019-05-19] MEDS: haloperidoL 5 MG TAB PO PRN (00:42)
[2019-05-19] MEDS: OLANZAPINE ZYDIS 5 MG ORALLY DIS. TAB PO SCH (09:41)
[2019-05-19] MEDS: NICOTINE 14 MG/24 HR PATCH TD SCH (10:09)
--- NOTE | 2019-05-19 10:46 | Discharge Summary ---
Date of Service May 19, 2019 History of Present Illness Mariia was found wandering without shoes, disorganized, laughing inappropriately to self as if responding to internal stimuli. She has a few horizontal superficial cuts to her left forearm which she refuses to show me today. She told another staff that someone else did it but she is a very unreliable historian. Unclear why/when she left the [facility] and states that she hasn't taken medication for probably "5 months" because she didn't need it anymore. Says she's sad to be here then laughs inappropriately. She has taken 2 doses of Haldol so far, 1 in ED and one this am with Cogentin and appears to tolerate without EPS. Of note tox screen in ED positive for MDMA and methamphetamines, negative for opiates. She denies drug use. Physical Exam Psychiatric Orientation: alert and cooperative Apperance: appropriately dressed and appropriately groomed; + did not appear stated age (Appears younger than stated age.) Eye Contact: + poor eye contact Motor Behavior: steady gait and station and no abnormal motor movements Talks in a childlike voice, gives short answers to questions. Affect: euthymic affect Inappropriately a couple of times during the assessment. "Good." Thought Process: goal directed thought process and + concrete thought process Answers "good" to most questions. Thought Content: reality based without delusions Suicidal Thoughts: denies suicidal thoughts Homicidal Thoughts: denies homicidal thoughts Hallucinations: no auditory hallucinations and no visual hallucinations Cognition: attention grossly intact and language grossly intact Estimated Intelligence: + below average estimated intelligence Insight: + poor insight Judgement: + poor judgement Vital Signs (Past 24 Hours) Last Vital Signs Temp 36.6 C 05/18/19 20:55 Pulse 105 H 05/18/19 20:55 Resp 18 05/18/19 20:55 BP 124/82 05/18/19 20:55 Pulse Ox 99 05/15/19 21:00 Principal Diagnosis Schizoaffective disorder, bipolar type. Methamphetamine use disorder. Substance-induced psychosis. Treatment noncompliance. Psychiatric Data Patient was hospitalized for 5 days. On admission, she was brought in by state police on a 302 warrant stating that in the past week she had not showered, eaten, or performed basic hygiene. She was walking without shoes in the middle of the street, talking to people who were not there, and had been off medications for 4 to 5 months according to her father. Her father stated she had not changed close in 3 days. In the ER, she was disorganized and appeared to be responding to internal stimuli, talking and laughing to herself, and was unable/unwilling to answer basic questions. She refused to discuss her substance abuse, and drug screen was positive for methamphetamine/amphetamine and MDMA; confirmatory results negative for MDMA but positive for methamphetamine with a level > 150,000. She had superficial cuts on her arm and when asked about them, laughed and said "I had someone do it for me." She received multiple doses of Haldol 5 mg prn throughout her stay, and was started on olanzapine 5 mg twice daily which she took willingly and tolerated well. She was also placed on the clonidine protocol due to the possibility of opiate withdrawal, but did not have symptoms consistent with that withdrawal syndrome. She had previously been on Depakote, and recommendations to resume that medication were discussed, but she was unwilling. She was poorly engaged in treatment, did not attend or participate in groups, and often refused to answer questions/was a poor historian. She refused to discuss her drug use, and continued to talk and laugh to herself throughout hospitalization. She spent most of her time in her room, often sleeping or listening to music, and at times was irritable with staff. She attended limited groups, but often did not stay for the duration of the session. She consistently denied feeling depressed or suicidal, reported good mood, and did not engage in self-injurious behavior or threatening or violent behavior towards others. She was eating and showering. She initially agreed to a referral to reestablish case management services, but when she got on the phone with the base service unit, she then refused services. Social work talked to her father, who stated that she has been staying with him "off and on" for a week or two at a time, and she will "up and leave" without telling him. She often goes to her brother Mj's house and uses drugs, mostly meth, and when she returns "she's a Looney Toon." Prior to admission she had been awake for 3 days and 3 nights. She typically stops all medication once she is discharged from the hospital and stopped case management services with Elisa a few months ago. He stated she could not come stay with him, as "I'm at my wit's end with her. I don't know what to do anymore for her." She was most recently at [facility] for 30 days, and has been hospitalized at [facility] and [facility], where a referral to [facility] was started, but she "will always manipulate people into thinking she's okay and they let her go." After she was discharged from [facility] in 2018, she went to the [facility] where she did well with medication compliance but was discharged from the service due to drug use. He spoke with staff later during her stay, and stated he had changed his mind and that the patient could return to live with him at discharge. Her disorganization improved throughout her stay, and as she was eating, sleeping, tending to her basic hygiene independently, denying SI, not engaging in self injury or aggressive or threatening behavior to others, she did not meet vilma baxter for ongoing involuntary treatment. Day of Discharge Assessment Staff report the patient was calm her yesterday, with less inappropriate laughte r and talking to herself. She showered, and took her medications as prescribed. She received multiple as needed's overnight, including hydroxyzine and haloperidol. She continues to have periods of irritability where she is talking to herself loudly, swearing at staff. brewery worker again met with her yesterday to encourage referrals for outpatient services, which she continued to decline. She is eating well, regular meals plus snacks. On my assessment, she reports mood is "good," denies suicidal thoughts, wishes to be , and urges to harm herself. She continues to refuse to discuss her drug use. She is taking Zyprexa as scheduled, reports it has been helpful, and says she will continue it after discharge, but thinks that once she is feeling better, she no longer needs medication or treatment. She refuses all outpatient treatment, and informed her that we will provide contact numbers for [facility] service unit in case she changes her mind and is willing to accept services, to which she responded "cool." She is willing to return to her father's home, and although she was informed of recommendations to avoid illicit substance use, she does not indicate willingness to comply with this. Transition of Care Transition Of Care Record: was reviewed with the patient Advance Directives Advance Directives Information Provided: Yes Advance Directives: No Mental Health Advance Directive: No Advance Directives on File: No Living Will: No Power of Technical Support Agent: No Advance Directives Reason:: Declines as Mental Health Visit. Risk Factors Assessment Risk factors were mitigated by admission to the inpatient unit, resuming antipsychotic medication to target mood and psychotic symptoms, education about her diagnoses and the recommended treatment, education about the risks of ongoing substance abuse and recommendations for abstinence and substance abuse treatment, involving her in groups and therapy, involving her father in treatment, attempting to refer her for outpatient services (although she declined all recommended outpatient treatment). She has demonstrated improvement in psychotic symptoms, as she is more organized, is denying hallucinations, thoughts of harming herself or others, and has not been engaging in self injury or violent behavior towards others here. She is eating and sleeping well, showering, and able to complete ADLs independently. Although she is taking antipsychotic medication here and reports it has been helpful, she is unwilling to allow referral for ongoing outpatient treatment. She states willingness to continue the medication for now, but a plan to stop it when she is feeling better. Although there is a risk of prescribing medication without identified outpatient follow-up, I believe the risk of stopping the medication at this time is greater, as her psychotic symptoms would be likely to worsen. My hope is that if she continues to improve, she will be willing to resume outpatient treatment. Her 302 involuntary commitment expires today, and she does not meet criteria for further involuntary treatment, as she is not at imminent risk of harm to herself or others it is able to provide for her own basic needs at this time. She will be going to live with her father, who is aware of the plan and voiced agreement. She remains at increased risk for to herself compared to the general population, given her risk factors of substance abuse, mental illness, poor treatment adherence, and lack of supports; but these risk factors are not amenable to further inpatient treatment at this time. Male: No : Yes Do You Have Access To A Gun?: No Health Problems: No Mental Health Diagnoses: Yes Substance Use Disorders: Yes Previous Attempt: No Previous Psychiatric Hospitalization: Yes Hopelessness: No Smoker: Yes Protective Factors Assessment : No Responsible for Young Children: No Employed: No Stable Relationships: No Supportive Family: Yes Good Rapport with Provider: No Tobacco Cessation at Discharge Tobacco Cessation Medication Prescribed at Discharge: Offered & Pt Refused Total Time Total Time Spent: Greater Than 30 Minutes Total Time Includes: Examination of the patient, Discharge Planning and Medication Reconciliation Discharge Data Lab Results 05/14/19 05/14/19 05/14/19 16:54 16:54 16:54 WBC 6.36 RBC 4.32 Hgb 14.6 Hct 41.5 MCV 96.1 MCH 33.8 MCHC 35.2 RDW Std Deviation 47.8 H RDW Coeff of Gerard 13.5 Plt Count 388 MPV 9.2 Immature Gran % (Auto) 0.0 Neut % (Auto) 53.4 Lymph % (Auto) 38.8 [place] % (Auto) 6.1 Eos % (Auto) 1.1 Baso % (Auto) 0.6 Immature Gran # (Auto) 0.00 Neut # (Auto) 3.39 Lymph # (Auto) 2.47 [place] # (Auto) 0.39 Eos # (Auto) 0.07 Baso # (Auto) 0.04 Sodium 138 Potassium 3.8 Chloride 105 Carbon Dioxide 27 Anion Gap 6.0 BUN 3 L Creatinine 0.84 Est Cr Clr Drug Dosing 83.2 Est GFR ( Amer) 110.4 Est GFR (Non-Af Amer) 95.3 BUN/Creatinine Ratio 3.3 L Glucose 85 Calcium 9.5 Total Bilirubin 0.4 AST 10 L ALT 14 Alkaline Phosphatase 93 Total Protein 8.3 H Albumin 4.3 Globulin 4.0 Albumin/Globulin Ratio 1.1 TSH 1.200 HCG, Qual Urine Color Urine Appearance Urine pH Ur Specific [place] Urine Protein Urine Glucose (UA) Urine Ketones Urine Blood Urine Nitrite Urine Bilirubin Urine Urobilinogen Ur Leukocyte Esterase Urine WBC (Auto) Urine RBC (Auto) U Hyaline Cast (Auto) U Epithel Cells (Auto) Urine Bacteria (Auto) Urine Yeast Salicylates 3.9 Urine Opiates Screen Ur Methadone, Qual Acetaminophen < 2 L Urine Barbiturates Valproic Acid < 3 L Ur Phencyclidine (PCP) U Amphetamines Confirm U Amphetamin/Meth Scrn U Methamphetamin Confrm Urine MDEA MDMA (Ecstasy) Screen MDMA Urine MDMA U Benzodiazepines Scrn Ur Cocaine Metabolite U Marijuana (THC) Screen Drug Screen Comment Ethyl Alcohol mg/dL 05/14/19 05/14/19 05/14/19 16:54 16:54 20:10 WBC RBC Hgb Hct MCV MCH MCHC RDW Std Deviation RDW Coeff of Gerard Plt Count MPV Immature Gran % (Auto) Neut % (Auto) Lymph % (Auto) [place] % (Auto) Eos % (Auto) Baso % (Auto) Immature Gran # (Auto) Neut # (Auto) Lymph # (Auto) [place] # (Auto) Eos # (Auto) Baso # (Auto) Sodium Potassium Chloride Carbon Dioxide Anion Gap BUN Creatinine Est Cr Clr Drug Dosing Est GFR ( Amer) Est GFR (Non-Af Amer) BUN/Creatinine Ratio Glucose Calcium Total Bilirubin AST ALT Alkaline Phosphatase Total Protein Albumin Globulin Albumin/Globulin Ratio TSH HCG, Qual Negative Urine Color Urine Appearance Urine pH Ur Specific [place] Urine Protein Urine Glucose (UA) Urine Ketones Urine Blood Urine Nitrite Urine Bilirubin Urine Urobilinogen Ur Leukocyte Esterase Urine WBC (Auto) Urine RBC (Auto) U Hyaline Cast (Auto) U Epithel Cells (Auto) Urine Bacteria (Auto) Urine Yeast Salicylates Urine Opiates Screen Neg Ur Methadone, Qual Neg Acetaminophen Urine Barbiturates Neg Valproic Acid Ur Phencyclidine (PCP) Neg U Amphetamines Confirm U Amphetamin/Meth Scrn Pos H U Methamphetamin Confrm Urine MDEA MDMA (Ecstasy) Screen Pos H MDMA Urine MDMA U Benzodiazepines Scrn Neg Ur Cocaine Metabolite Neg U Marijuana (THC) Screen Neg Drug Screen Comment Ethyl Alcohol mg/dL < 3.0 05/14/19 05/14/19 20:10 20:10 WBC RBC Hgb Hct MCV MCH MCHC RDW Std Deviation RDW Coeff of Gerard Plt Count MPV Immature Gran % (Auto) Neut % (Auto) Lymph % (Auto) [place] % (Auto) Eos % (Auto) Baso % (Auto) Immature Gran # (Auto) Neut # (Auto) Lymph # (Auto) [place] # (Auto) Eos # (Auto) Baso # (Auto) Sodium Potassium Chloride Carbon Dioxide Anion Gap BUN Creatinine Est Cr Clr Drug Dosing Est GFR ( Amer) Est GFR (Non-Af Amer) BUN/Creatinine Ratio Glucose Calcium Total Bilirubin AST ALT Alkaline Phosphatase Total Protein Albumin Globulin Albumin/Globulin Ratio TSH HCG, Qual Urine Color Yellow Urine Appearance Cloudy A Urine pH 7.5 Ur Specific [place] 1.011 Urine Protein Negative Urine Glucose (UA) Negative Urine Ketones Negative Urine Blood 2+ H Urine Nitrite Negative Urine Bilirubin Negative Urine Urobilinogen Negative Ur Leukocyte Esterase Trace H Urine WBC (Auto) 5-10 H Urine RBC (Auto) 0-4 U Hyaline Cast (Auto) 1-5 U Epithel Cells (Auto) >30 H Urine Bacteria (Auto) 2+ H Urine Yeast Not Reportable Salicylates Urine Opiates Screen Ur Methadone, Qual Acetaminophen Urine Barbiturates Valproic Acid Ur Phencyclidine (PCP) U Amphetamines Confirm 3870 H U Amphetamin/Meth Scrn U Methamphetamin Confrm >72287 H Urine MDEA negative MDMA (Ecstasy) Screen MDMA negative Urine MDMA negative U Benzodiazepines Scrn Ur Cocaine Metabolite U Marijuana (THC) Screen Drug Screen Comment SEE NOTE Ethyl Alcohol mg/dL Hospital Course (1) Schizoaffective disorder: 05/14--The patient was admitted to the [facility] ([facility] health unit) on q15 min checks (behavioral with suicide precautions) for safety. The patient will participate in group, recreational, and milieu therapies and will be offered additional individual and family sessions as clinically appropriate. Continue Haldol prns, as prone to EPS will offer Zyprexa zydis today. She did seem willing to resume/retitrate Depakote but shut down when I attempted to discuss risks/benefits/ control. 05/15--benefiting from Zyprexa, states she would like to continue it. Willing to take meds when leaves hospital but states "when I'm good I don't need them". 05/16--Continue olanzapine. -Patient refusing [facility], outpatient care. unsure where she will live at discharge, as cannot return to father's house. Continue to gather information towards the need for ongoing involuntary inpatient treatment. 05/17--Continue olanzapine - Pt continues to refuse recommendations for outpatient psychiatric services - Pt is aware that father has changed his mind and is willing to accept her back home; he is able to pick her up tomorrow afternoon and does not feel patient will be agreeable with recommended outpatient treatment - Will continue to coordinate discharge plans with patient and father 05/18--302 involuntary commitment expires today, and patient does not meet criteria for ongoing involuntary treatment, so we will discharge to home. She will be returning to her father's. -Prescription issued for 30-day supply of olanzapine 5 mg twice daily. FLP from 11/2017 reviewed, all values normal. Fasting glucose 80. If patient remains on this medication, repeat labs should be obtained, but she indicates that she plans to take it for only the next few weeks before discontinuing it. -Patient refused recommendations for outpatient psychiatry, therapy, case management, and substance abuse treatment. (2) Drug abuse: 05/14 unclear current pattern of use, unable to participate in [place] due to current mental status exam. 05/15 patient refuses to discuss 05/17- Continues to refuse to discuss substance abuse or available treatment options 05/18-patient advised to abstain from illicit drug use. She indicates no intention to comply with this. Mental Health & Subst Abuse Tx Psychiatrist Name of Psychiatrist: Patient refusing Therapist Name of Therapist: Patient refusing Arts Administrator Or Manager Name of Arts Administrator Or Manager: Patient refusing, but previously had services at the [facility] with Elisa Phone Number for Arts Administrator Or Manager: [phone] Post Discharge Appointments Primary Care Physician Name Of Family Doctor: Denies/None Smoking Cessation Counseling Tobacco Cessation Medication Prescribed at Discharge: Offered & Pt Refused Contact Information Discharge Discharge Plan Discharge Items Patient Disposition: Home - Self-Care Reason For Visit: SCHIZOAFFECTIVE DISORDER Discharge Diagnosis: Schizoaffective disorder, bipolar type. Methamphetamine use disorder. Substance-induced psychosis. Treatment noncompliance. Condition on Discharge: Fair Activity: Per Instructions section Non-emergency contact: Rubber [employer]s Tester [employer] Call non-emergency contact if: your symptoms worsen Follow-up/Referrals: PCP,NO [Primary Care Provider] - Diet: Regular Addtl Attending Provider Instructions: SPECIAL CARE INSTRUCTIONS: 1. We recommended you follow-up with a case packer and sealer, psychiatrist, therapist, and substance abuse treatment, but you refused all of these recommendations. --If you change her mind and are willing for outpatient treatment, contact [facility] Office of Mental Health and Substance Abuse Treatment at to receive case management services and assistance with arranging additional outpatient treatment. 2. Take your medication only as prescribed. Medication should not be changed or stopped without the approval of your doctor. In the event of worsening symptoms or concerns about side effects, contact your doctor immediately. 3. Utilize new healthy coping skills, anger management skills, and stress management skills learned during your hospitalization. Journal feelings and process them with a support person. Identify stressors or situations that may result in relapse, deterioration or inappropriate behaviors and develop a plan to deal with those issues. 4. If your coping skills are ineffective and you are in crisis, contact your outpatient providers for direction. If unable to reach your providers, please call the [facility] Crisis Line at or go to the closest Emergency Room. 5. You should not drink alcohol or take un-prescribed drugs. Stop using methamphetamine, as it worsens your mental health condition and triggers mood and psychotic symptoms. 6. You have been provided with the Mental Health Advance Directives Pamphlet for your review. AFTERCARE APPOINTMENTS: * Please call your insurance company prior to your scheduled appointment to confirm your aftercare providers are covered. Take your insurance information to your appointments. WHO TO CALL AND WHEN: Medical Emergencies: For questions or emergencies related to your hospital stay, please contact the Inpatient Behavioral Health Unit at [phone]. A needle grinder is on-call 01/09 for the Behavioral Health Unit for emergencies At any time you feel your situation is an emergency, you may also call 911 immediately. Your Doctors Instructions noted above were prepared by provider Karen Santiago MD. Pending Studies at Discharge: No Stand-Alone Forms: My [facility], Smoking Cessation, Suicide Prevention Resources Medications and DC Order Prescriptions: New olanzapine 5 mg tablet 5 mg PO BID Qty: 60 RF: 0 Discharge Orders: Discharge Order (Routine); Ordered 05/19/19 Ordered By: Karen Santiago Admission Data Admit Date/Time: 05/14/19 22:50 Attending Provider: Klaudia Willett Admit Provider: Klaudia Willett Primary Care Provider: PCP,NO Other Interventions: PSY Interdisciplinary Discharge Planning Last Done: 05/16/19 13:54 Coding Level of Care Code 46570 D/C day mgmt > 30 min Diagnoses Schizoaffective disorder F25.0 Schizoaffective disorder type: bipolar Drug abuse F19.10
== END 2019-05-19 12:22 | disposition home or self-care (01) | DRG 885 ==
LOC: ED 16:38 → 3S 22:50